=== PATIENT | female | born 1950 | race Caucasian/White ===

== ENCOUNTER 2018-08-18 02:50 | Outpatient (CLI) | payer MEDICARE, OTHER, SELFPAY ==
[2018-08-18 11:30] LABS: Anion Gap 5.7 mmol/L (3-11); BUN 18 mg/dL (7-18); CO2 30.3 mmol/L (21.0-32.0); CREATININE 1.25 mg/dL (0.55-1.02); Calcium 8.9 mg/dL (8.5-10.1); Chloride 104 mmol/L (98-107); Cholesterol 149 mg/dL (50-200); Estimated GFR 42.37 (mL/min/1.73m2); Glucose 99 mg/dL (70-100); HDL Cholesterol 46 mg/dL (40-60); LDL CHOLESTEROL 77 mg/dL (<100); Potassium 4.3 mmol/L (3.5-5.1); Sodium 140 mmol/L (136-145); TSH (W/Ref FT4) 0.04 uIU/mL (0.358-3.74); Triglyceride 152 mg/dL (30-150)
[2018-08-18 12:03] LABS: FREE T4 1.53 ng/dL (0.76-1.46)
== END 2018-08-18 03:10 ==
PROVIDERS: PCP Family Medicine; Visit Provider Family Medicine
DX: E03.9 Hypothyroidism, unspecified (principal); E66.01 Morbid (severe) obesity due to excess calories; R73.01 Impaired fasting glucose
CPT/HCPCS: 36415; 80048; 80061; 83721; 84439; 84443

== ENCOUNTER 2018-09-11 06:54 | Outpatient (CLI) | payer MEDICARE, OTHER, SELFPAY ==
--- NOTE | 2018-09-11 15:00 | DI.MAMMO_ITS ---
SYMPTOM/DIAGNOSIS: SCREENING, Z12.31 MAMMOGRAMS: Mammograms were interpreted according to the usual protocol including computer analysis with CAD system, tomosynthesis and C view imaging. Comparison is made with exams from [id number]. The breasts are composed of fatty density tissue, breast density, Category A. No suspicious masses or suspicious microcalcifications are seen. There has been no significant change. Benign calcifications are again noted bilaterally, right greater than left. IMPRESSION: Category 2, negative mammogram with benign findings. Yearly screening mammography is recommended. MQSA ASSESSMENT OF FINDINGS: Negative with benign findings. Category 2. Patient will receive a letter notifying them of these results. BI-RAD category A. The breasts are almost entirely fatty.
== END 2018-09-11 07:14 ==
PROVIDERS: PCP Family Medicine; Visit Provider Family Medicine
DX: Z12.31 Encounter for screening mammogram for malignant neoplasm of breast (principal)
CPT/HCPCS: 77063; 77067

== ENCOUNTER 2018-10-04 01:50 | Outpatient (CLI) | payer MEDICARE, OTHER, SELFPAY ==
[2018-10-04 11:00] LABS: TSH (W/Ref FT4) 0.03 uIU/mL (0.358-3.74)
[2018-10-04 11:19] LABS: FREE T4 1.63 ng/dL (0.76-1.46)
== END 2018-10-04 02:10 ==
PROVIDERS: PCP Family Medicine; Visit Provider Family Medicine
DX: E03.9 Hypothyroidism, unspecified (principal)
CPT/HCPCS: 36415; 84439; 84443

== ENCOUNTER 2018-11-14 01:43 | Outpatient (CLI) | payer MEDICARE, OTHER, SELFPAY ==
[2018-11-14 11:43] LABS: TSH (W/Ref FT4) 0.02 uIU/mL (0.36-3.74)
[2018-11-14 12:01] LABS: FREE T4 1.28 ng/dL (0.76-1.46)
== END 2018-11-14 02:03 ==
PROVIDERS: PCP Family Medicine; Visit Provider Family Medicine
DX: E03.9 Hypothyroidism, unspecified (principal)
CPT/HCPCS: 36415; 84439; 84443

== ENCOUNTER 2019-01-08 08:23 | Outpatient (CLI) | payer MEDICARE, OTHER, SELFPAY ==
[2019-01-08 12:00] LABS: TSH (W/Ref FT4) 0.24 uIU/mL (0.36-3.74)
[2019-01-08 12:21] LABS: FREE T4 1.03 ng/dL (0.76-1.46)
== END 2019-01-08 08:43 ==
PROVIDERS: PCP Family Medicine; Visit Provider Family Medicine
DX: E03.9 Hypothyroidism, unspecified (principal)
CPT/HCPCS: 36415; 84439; 84443

== ENCOUNTER 2019-03-16 10:36 | Outpatient (REF) | payer MEDICARE, OTHER, SELFPAY | END 2019-03-16 10:56 | LOC: LBN 10:36 | PROVIDERS: PCP Family Medicine; Visit Provider Family Medicine | DX: R30.0 Dysuria (principal) | CPT/HCPCS: 87077; 87086; 87186 ==

== ENCOUNTER 2020-04-30 18:00 | Outpatient (REF) | payer MEDICARE, OTHER, SELFPAY ==
[2020-04-30 12:13] LABS: HCT 41.5 % (36.0-46.0); HGB 13.6 g/dL (11.2-15.7); MCH 29.4 pg (27.0-33.0); MCHC 32.8 % (32.0-36.0); MCV 89.6 fL (80-95); MPV 10.4 fL (8.0-11.0); Platelet Count 226 10^3/uL (130-400); RBC 4.63 10^6/uL (3.93-5.22); RDW 14.1 % (11.7-14.6); RDW-SD 46.4 fL; WBC 7.61 10^3/uL (4.4-10.8)
[2020-04-30 12:37] LABS: Hemoglobin A1C 5.5 % (<5.7)
[2020-04-30 12:48] LABS: BUN 21 mg/dL (7-18); CREATININE 1.56 mg/dL (0.55-1.02); Calcium 9.1 mg/dL (8.5-10.1); Calculated LDL 132 mg/dL (<100); Chloride 103 mmol/L (98-107); Cholesterol 217 mg/dL (<200); Estimated GFR 32.62 (mL/min/1.73m2); Glucose 117 mg/dL (74-106); HDL Cholesterol 58 mg/dL (40-60); Potassium 4.1 mmol/L (3.5-5.1); Sodium 141 mmol/L (136-145); TSH (W/Ref FT4) 4.85 uIU/mL (0.36-3.74); Triglyceride 138 mg/dL (<150); Vitamin B12 1290 pg/mL (193-986)
[2020-04-30 13:21] LABS: FREE T4 1.16 ng/dL (0.76-1.46)
== END 2020-04-30 18:20 ==
LOC: LBN 18:00
PROVIDERS: PCP Family Medicine; Visit Provider Family Medicine
DX: D64.9 Anemia, unspecified (principal); R73.9 Hyperglycemia, unspecified; E03.9 Hypothyroidism, unspecified; E78.5 Hyperlipidemia, unspecified; E87.1 Hypo-osmolality and hyponatremia
CPT/HCPCS: 80048; 80061; 85027; 82607; 83036; 84439; 84443

== ENCOUNTER 2020-05-23 02:44 | Outpatient (CLI) | payer MEDICARE, OTHER, SELFPAY ==
--- NOTE | 2020-05-23 15:55 | DI.MAMMO_ITS ---
EXAM: MG MAMMO SCREENING CLINICAL HISTORY: screening.Z12.39. TECHNIQUE: Bilateral full field digital CC and MLO mammographic images were obtained with 3D tomosyn thesis and utilizing computer aided detection (CAD). COMPARISON: Prior mammograms dating back to 2010, the most recent being August 2018. FINDINGS: There are no spiculated masses nor malignant appearing microcalcification groups. There is no signif icant architectural distortion nor skin thickening-retraction. IMPRESSION: No radiographic evidence of malignancy. BI-RADS Category 1 - Negative Breast Density - Category A - Almost entirely fatty Breast density Category C or D implies that the patient has dense breast tissue. Dense breast tissue can make it harder to find cancer on a mammogram. Dense breast tissue is also associated with an incr eased risk of breast cancer. This information about the result of the mammogram report was provided to the patient to raise their awareness. Use this report when you speak with the patient about their risks for breast cancer, which includes their family history. At that time, you may recommend additional screening tests (Ultrasoun d or MRI) as these tests may add significant information. A negative radiographic report should not delay biopsy if a dominant or clinically suspicious mass is present. Up to ten percent of cancers are not identified on mammography. A negative report may reinforce clinical impression. Adenosis and dense breasts may obscure an underlying neoplasm. False positive reports average 6 to 10%. Patient will receive a letter notifying them of these results.
== END 2020-05-23 03:04 ==
PROVIDERS: PCP Family Medicine; Visit Provider Family Medicine
DX: Z12.31 Encounter for screening mammogram for malignant neoplasm of breast (principal)
CPT/HCPCS: 77063; 77067

== ENCOUNTER 2020-08-01 12:22 | Outpatient (REF) | payer MEDICARE, OTHER, SELFPAY ==
[2020-08-01 14:34] LABS: BUN 18 mg/dL (7-18); CREATININE 1.4 mg/dL (0.55-1.02); Estimated GFR 36.96 (mL/min/1.73m2)
[2020-08-01 14:38] LABS: Cholesterol 141 mg/dL (<200)
== END 2020-08-01 12:23 | disposition home or self-care (01) ==
LOC: LBN 12:22
PROVIDERS: PCP Family Medicine; Visit Provider Family Medicine
DX: E78.5 Hyperlipidemia, unspecified (principal); N18.9 Chronic kidney disease, unspecified
CPT/HCPCS: 84520; 82465; 82565

== ENCOUNTER 2021-04-28 03:24 | Outpatient (CLI) | payer MEDICARE, OTHER, SELFPAY ==
[2021-04-28 13:41] LABS: Calculated LDL 58 mg/dL (<100); Cholesterol 170 mg/dL (<200); HDL Cholesterol 56 mg/dL (40-60); TSH (W/Ref FT4) 0.25 uIU/mL (0.36-3.74); Triglyceride 281 mg/dL (<150)
[2021-04-28 14:13] LABS: FREE T4 1.23 ng/dL (0.76-1.46)
== END 2021-04-28 03:25 | disposition home or self-care (01) ==
LOC: LBO 03:25
PROVIDERS: PCP Family Medicine; Visit Provider Family Medicine
DX: E03.9 Hypothyroidism, unspecified (principal); E78.5 Hyperlipidemia, unspecified
CPT/HCPCS: 36415; 80061; 84439; 84443

== ENCOUNTER 2021-05-26 00:13 | Outpatient (CLI) | payer MEDICARE, OTHER, SELFPAY ==
--- NOTE | 2021-05-26 15:57 | DI.MAMMO_ITS ---
Exam(s) MAMMO SCREENING EXAM: MAMMO SCREENING CLINICAL HISTORY: screening,z12.39 TECHNIQUE: Bilateral full field digital CC and MLO mammographic images were obtained with 3D tomosyn thesis and utilizing computer aided detection (CAD). COMPARISON: Available for comparison. FINDINGS: Masses/Architectural Distortion: None seen. Microcalcifications: No suspicious pleomorphic-type are seen. Skin Thickening/Nipple Retraction: None. IMPRESSION: 1. No significant interval change with no specific features of malignancy noted. 2. Unless there is more urgent need, screening mammography is recommended, as per [employer] guidelines. BI-RADS Category 1 - Negative Breast Density - Category A - Almost entirely fatty Breast density category C or D implies that the patient has dense breast tissue. Dense breast tissue is very common and is not abnormal but dense breast tissue can make it harder to find cancer on a ma mmogram. Also, dense breast tissue may increase their breast cancer risk. This information about the result of the mammogram report was provided to the patient to raise their awareness. Use this report when you speak with the patient about their risks for breast cancer, which includes their family hist ory. At that time, you may recommend for more screening tests (Ultrasound or MRI) as they might be us eful based on their risk. A negative radiographic report should not delay biopsy if a dominant or clinically suspicious mass is present. Up to ten percent of cancers are not identified on mammography. A negative report may reinforce clinical impression. Adenosis and dense breasts may obscure an underlying neoplasm. False positive reports average 6 to 10%. Patient will receive a letter notifying them of these results.
== END 2021-05-26 00:33 ==
PROVIDERS: PCP Family Medicine; Visit Provider Family Medicine
DX: Z12.31 Encounter for screening mammogram for malignant neoplasm of breast (principal)
CPT/HCPCS: 77063; 77067

== ENCOUNTER 2021-12-10 16:56 | Outpatient (REF) | payer MEDICARE, OTHER, SELFPAY ==
[2021-12-10 18:28] LABS: CREATININE 1.9 mg/dL (0.55-1.02); Estimated GFR 25.91 (mL/min/1.73m2); Potassium 4.2 mmol/L (3.5-5.1)
== END 2021-12-10 16:57 | disposition home or self-care (01) ==
LOC: LBN 16:56
PROVIDERS: PCP Family Medicine; Visit Provider Family Medicine
DX: I10 Essential (primary) hypertension (principal); N18.9 Chronic kidney disease, unspecified
CPT/HCPCS: 82565; 84132

== ENCOUNTER → 2022-01-27 01:19 | Outpatient (CLI) | payer MEDICARE, OTHER, SELFPAY ==
--- NOTE | 2022-01-27 07:30 | DI.US_ITS ---
Exam(s) US RENAL EXAM: US RENAL CLINICAL HISTORY: renal insufficiency,n28.9. TECHNIQUE: Loja scale, color and spectral Doppler were used. COMPARISON: No exams were available for comparison FINDINGS: Exam is limited by patient body habitus. Renal size in cm: Right: 8.5 x 4.2 x 4.4 left: 9.1 x 3.7 x 4.6 Echogenicity: Normal Hydronephrosis: No Cyst or mass: No Nephrolithiasis: No Bladder:No focal mass or stone visible. Prevoid vol:111 cc Postvoid vol:2 cc IMPRESSION: Mild bilateral renal parenchymal atrophy. No evidence hydronephrosis. DATA REPOSITORY:
== END ==
PROVIDERS: PCP Family Medicine; Visit Provider Family Medicine
DX: N28.89 Other specified disorders of kidney and ureter (principal)
CPT/HCPCS: 76770

== ENCOUNTER 2022-04-22 17:58 | Outpatient (REF) | payer MEDICARE, OTHER, SELFPAY ==
[2022-04-22 18:50] LABS: Hemoglobin A1C 5.3 % (<5.7)
[2022-04-22 18:51] LABS: CREATININE 2.2 mg/dL (0.55-1.02); Estimated GFR 22.95 (mL/min/1.73m2)
[2022-04-22 19:08] LABS: FREE T4 1.44 ng/dL (0.76-1.46)
== END 2022-04-22 17:59 | disposition home or self-care (01) ==
LOC: LBN 17:58
PROVIDERS: PCP Family Medicine; Visit Provider Family Medicine
DX: R73.9 Hyperglycemia, unspecified (principal); E03.9 Hypothyroidism, unspecified; I10 Essential (primary) hypertension
CPT/HCPCS: 82565; 83036; 84439; 84443

== ENCOUNTER 2022-05-19 02:47 | Outpatient (CLI) | payer MEDICARE, OTHER, SELFPAY ==
[2022-05-19 12:35] LABS: Abs Immature Grans 0.05 10^3/uL (0.0-0.06); Absolute Basophil Count 0.04 10^3/uL (0.0-0.2); Absolute Eosinophil Count 0.09 10^3/uL (0.0-0.7); Absolute Lymphocyte Count 0.99 10^3/uL (1.2-3.4); Absolute Monocyte Count 0.59 10^3/uL (0.1-0.8); Basophils % 0.5; Eosinophils % 1.1; HGB 11.2 g/dL (11.2-15.7); Immature Grans % 0.6; MCH 28.3 pg (27.0-33.0); MCHC 31.1 % (32.0-36.0); MCV 91 fL (80-95); MPV 10.3 fL (8.0-11.0); Monocytes % 7.1; Neutrophils % 78.7; Platelet Count 323 10^3/uL (130-400); RBC 3.96 10^6/uL (3.93-5.22); RDW 14.2 % (11.7-14.6); RDW-SD 47.8 fL; WBC 8.26 10^3/uL (4.4-10.8)
[2022-05-19 12:45] LABS: ALT 15 U/L (14-59); AST 17 U/L (15-37); Albumin 2.8 g/dL (3.4-5.0); Alkaline Phosphatase 111 U/L (46-116); Anion Gap 8.3 mmol/L (3-11); BUN 29 mg/dL (7-18); Bilirubin, Total 0.5 mg/dL (0.2-1.0); CO2 24.7 mmol/L (21.0-32.0); CREATININE 2.2 mg/dL (0.55-1.02); Chloride 106 mmol/L (98-107); Estimated GFR 22.95 (mL/min/1.73m2); Glucose 96 mg/dL (74-106); Potassium 3.9 mmol/L (3.5-5.1); Sodium 139 mmol/L (136-145); Total Protein 6.8 g/dL (6.4-8.2)
== END 2022-05-19 02:48 | disposition home or self-care (01) ==
LOC: LOS 02:47
PROVIDERS: PCP Family Medicine; Visit Provider Family Medicine
DX: D64.9 Anemia, unspecified (principal); R10.9 Unspecified abdominal pain
CPT/HCPCS: 36415; 80053; 85025

== ENCOUNTER 2022-05-27 01:17 | Outpatient (CLI) | payer MEDICARE, OTHER, SELFPAY ==
--- NOTE | 2022-05-27 07:30 | DI.CT_ITS ---
Exam(s) CT ABDOMEN PELVIS WO EXAM: CT ABDOMEN PELVIS WO CLINICAL HISTORY: abdominal pain x 2 months;h/o endometrial ca,r10.9. TECHNIQUE: Imaging Protocol: Axial computed tomography images with coronal and sagittal reformatted images were created and reviewed. Oral: yes / COMPARISON: CT CHEST ABD PELVIS WO CONTRAST from 03/12/2013 FINDINGS: ABDOMEN: Lung Bases: Stable 2-3 millimeter nodules noted at both lung bases. Liver: Normal density. No measurable mass. Gallbladder and biliary tract: No radiodense calculus or dilation. Stomach and small bowel: Suture ma terial at stomach. No small bowel dilatation. Pancreas: Normal density, no abnormal calcifications or inflammatory process. Spleen: Normal. Kidneys: Normal size, contour and axis. No radiodense stones or obstructive uropathy. No masses seen. Adrenal glands: Mildly prominent. No focal mass seen. Lymph nodes: Within normal limits. Abdominal Aorta: Abdominal portion non-dilated. Atherosclerotic changes. PELVIS: Bladder: Nearly empty. Bowel: Mild diverticulosis descending and sigmoid. No obstruction or bowel wall thickening. Peritoneal cavity: There is a large amount of ascites seen around the liver as well as in the mesente ry extending into the the pelvis. Abnormal thickening of the mesentery inferior to the right diaphra gm. Other areas of nodular thickening seen near the lower border of the liver and right mid anterior abdominal wall. The amount of peritoneal nodule thickening is likely underestimated due to lack of IV contrast. Reproductive organs: Status post hysterectomy. Bones: Degenerative changes. Stable mild compression fractures of the superior endplates of T12 and L3. New compression of the superior endplate of L2. No lytic or blastic lesions identified. IMPRESSION: Large quantity of ascites with abnormal nodular multifocal peritoneal thickening suspicious for perit partida metastases. RADIATION DOSE DELIVERED: 1,290.82mGy.cm Total DLP DATA REPOSITORY: All CT scans at this facility are submitted to the National Radiology Data Registry (NRDR) Dose Index Registry (DIR) with the [employer] (ACR). RADIATION OPTIMIZATION: All CT scans at this facility use at least one of these dose optimization te chniques: automated exposure control; mA and/or kV adjustment per patient size (includes targeted exa ms where dose is matched to clinical indication); or iterative reconstruction.
[2022-05-27] MEDS: Barium Sulfate 2% W/V-Berry Smoothie 450 ML BTL PO (08:39)
== END 2022-05-27 01:37 ==
LOC: DI 01:17
PROVIDERS: PCP Family Medicine; Visit Provider Family Medicine
DX: R10.9 Unspecified abdominal pain (principal); R93.5 Abnormal findings on diagnostic imaging of other abdominal regions, including retroperitoneum; Z85.42 Personal history of malignant neoplasm of other parts of uterus
CPT/HCPCS: 74176

== ENCOUNTER 2022-06-08 14:22 | Emergency (ER) | payer MEDICARE, OTHER, SELFPAY ==
[2022-06-08] VITALS (38 sets, daily range): BP systolic 95–134; BP diastolic 32–67; PULSE 73–97; RESP 14–20; TEMP 35.8–37.1; O2SAT 98–100
--- NOTE | 2022-06-08 14:15 | RT.EKG_ITS ---
APPROVED REPORT Exam: Resting ECG Reason for Exam: weak Patient Location: E HR:95 bpm ECG Measurements Heart Rate 95 AXIS WY 126 P 40 QRSd 85 QRS 36 QT 351 T 45 QTc 442 Conclusion Sinus rhythm...normal P axis, V-rate 60- 99 I have reviewed and interpreted ECG and agree with software generated interpretation. Narrow complex normal sinus rhythm at a rate of 95. Normal axis. Intervals within normal limits. N o ST segment abnormalities. T wave flattening in aVL. No prior for comparison. No acute injury juliette beckett.
--- NOTE | 2022-06-08 14:43 | W.ED.GENAD ---
Discharge Plan Discharge Details Chief Complaint: GenMedical Primary Care Provider: Prince Lowe ED Provider: Chris Pacheco Home Meds and New Rx's Prescriptions: No Action gabapentin 600 mg tablet 600 mg PO BID PRN (Reason: peripheral neuropathy) Qty: 180 3RF Hold Instructions: backordered Rx Instructions: 1 TAB BID atenolol 25 mg tablet 25 mg PO DAILY Qty: 90 3RF levothyroxine 200 mcg tablet 200 mcg PO DAILY Qty: 90 3RF Rx Instructions: taking 5 days /week cranberry extract 200 mg capsule 200 mg PO DAILY Rx Instructions: administer with a meal gabapentin 300 mg capsule 600 mg PO BID PRN oxybutynin chloride 10 mg tablet extended release 24hr 20 mg PO DAILY Qty: 90 3RF Hold Instructions: Home Medication placed on hold at Doctor's office Rx Instructions: dose increase 04/21/21 atorvastatin 40 mg tablet 40 mg PO HS Qty: 90 4RF Rx Instructions: 1 TAB HS lisinopril-hydrochlorothiazide 10-12.5 mg tablet 1 tab PO DAILY Qty: 90 3RF loperamide 2 mg capsule 2 mg PO Q6H PRN (Reason: loose stool) Qty: 30 5RF Myrbetriq 25 mg tablet extended release 24 hr 25 mg PO DAILY Qty: 90 3RF tramadol 50 mg tablet 25 - 50 mg PO Q8H PRN (Reason: pain) Qty: 30 0RF Medical Decision Making This is a 72-year-old female with a past medical history of hypertension, hyperlipidemia, neuropathy, thyroid disease, obesity, history of gastric bypass, endometrial cancer, presenting for several months of decreased appetite, weight loss, generalized weakness. 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 Clinically she appears stable, no acute distress, abdomen is nontender. Plan to obtain IV access and obtain routine screening laboratory values. Patient reports that given her generalized weakness and she lives at home alone, she believes that she requires admission. This documentation was generated using [employer] [place] system, please disregard any oddities of phrase or misspellings. Medical Records Medical records reviewed: Yes I reviewed the patient's medical records. ECG Data Attestation: I personally reviewed and interpreted this ECG (s) as follows: Interpretation: Sinus rhythm, ventricular of 95, no STEMI. HPI General Mode of arrival: ambulatory. Date/Time Provider Initiated Documentation: 06/08/22 14:30. Information obtained by: patient. HPI Narrative: This is a 72-year-old female with a past medical history of hypertension, hyperlipidemia, gastric bypass, thyroid disease, chronic diarrhea, uterine cancer 10 years ago, presenting now for several months of lack of appetite, weight loss, generalized weakness. Patient was seen by her PCP earlier this month and had an outpatient CT which revealed a large quantity of ascites with abdominal nodular multifocal peritoneal thickening suspicious for peritoneal metastasis. Patient states that she is in the process of being referred to [facility] for biopsy and more definitive diagnosis. Patient reports that because of her generalized weakness and living at home alone she is not safe to be discharged home and is requesting discharge. She denies fever, chest pain, shortness of breath, abdominal pain, vomiting, nausea, change in bowel or bladder function, skin rash. Related Data Home Medications Medication Instructions Recorded Confirmed gabapentin 600 mg tablet 600 mg PO BID PRN peripheral 01/09/19 06/08/22 neuropathy #180 tab-caps oxybutynin chloride 10 mg 20 mg PO DAILY #90 tabs 11/22/21 06/08/22 tablet,extended release 24 hr atorvastatin 40 mg tablet 40 mg PO HS #90 tab-caps 12/16/21 06/08/22 lisinopril 10 1 tab PO DAILY #90 tabs 02/10/22 06/08/22 mg-hydrochlorothiazide 12.5 mg tablet atenolol 25 mg tablet 25 mg PO DAILY #90 tabs 03/09/22 06/08/22 levothyroxine 200 mcg tablet 200 mcg PO DAILY #90 tab-caps 03/09/22 06/08/22 loperamide 2 mg capsule 2 mg PO Q6H PRN loose stool #30 03/13/22 06/08/22 caps cranberry extract 200 mg capsule 200 mg PO DAILY 03/17/22 06/08/22 gabapentin 300 mg capsule 600 mg PO BID PRN 05/13/22 06/08/22 mirabegron 25 mg tablet,extended 25 mg PO DAILY #90 tabs 05/24/22 06/08/22 release 24 hr (Myrbetriq) tramadol 50 mg tablet 25 - 50 mg PO Q8H PRN pain #30 tabs 06/08/22 06/08/22 Previous Rx's Medication Instructions Recorded gabapentin 600 mg tablet 600 mg PO BID PRN peripheral 01/09/19 neuropathy #180 tab-caps oxybutynin chloride 10 mg 20 mg PO DAILY #90 tabs 11/22/21 tablet,extended release 24 hr atorvastatin 40 mg tablet 40 mg PO HS #90 tab-caps 12/16/21 lisinopril 10 1 tab PO DAILY #90 tabs 02/10/22 mg-hydrochlorothiazide 12.5 mg tablet atenolol 25 mg tablet 25 mg PO DAILY #90 tabs 03/09/22 levothyroxine 200 mcg tablet 200 mcg PO DAILY #90 tab-caps 03/09/22 loperamide 2 mg capsule 2 mg PO Q6H PRN loose stool #30 03/13/22 caps mirabegron 25 mg tablet,extended 25 mg PO DAILY #90 tabs 05/24/22 release 24 hr (Myrbetriq) tramadol 50 mg tablet 25 - 50 mg PO Q8H PRN pain #30 tabs 06/08/22 Allergies Allergy/AdvReac Type Severity Reaction Status Date / Time bupropion HCl AdvReac Intermediate tremors Verified 06/08/22 14:30 [From Wellbutrin] General Stated Complaint: GenMedical LARRY: 3 Review of Systems Constitutional Constitutional: Reports fatigue, Denies fever(s) and Reports weakness Cardiovascular Cardiovascular: Denies chest pain and Denies dyspnea Respiratory Respiratory: Denies cough and Denies dyspnea Gastrointestinal Gastrointestinal: Denies abdominal pain, Denies melena, Denies hematochezia, Reports loose stools (Chronic), Denies nausea and Denies vomiting Comments: Abdominal fullness Genitourinary Genitourinary: Denies dysuria Musculoskeletal Musculoskeletal: Denies back pain Integumentary/Breasts Skin/Breast: Denies rash Neurologic Neurologic: Reports weakness Endocrine Endocrine: Reports fatigue Hematologic/Lymphatic Hematologic/Lymphatic: Denies easy bleeding and Denies easy bruising PFSH All Active Problems Peritoneal metastases (Acute) Abdominal pain (Acute) Medical History Acne Carpal tunnel syndrome Chronic diarrhea Depressive disorder Diabetes mellitus (05/31/14) Edema Gastroesophageal reflux disease with esophagitis Herpes zoster (02/29/08) Hyperlipidemia (10/19/12) Hypertension better w/ current meds Hypothyroidism (10/19/12) Impaired fasting glucose (07/14/15) Malignant neoplasm of uterus (07/02/11) endometrial cancer (focal grade 3) noninvasive TLH/BSO at [facility] 06/24/11 Morbid obesity Obstructive sleep apnea syndrome [facility] sleep lab 2003 (pt stopped CPAP in 2010, re-start 2014 No Co Hosp sleep lab) Peripheral neuropathy leg numbness and unstable gait due th chemo Renal insufficiency [facility] Nephrology eval 2006 Renal insufficiency Sensorineural hearing loss of both ears Vertigo (02/29/08) Vitamin B 12 deficiency (05/31/14) Vitamin D deficiency (07/14/15) Surgical History Colonoscopy - MAC (05/03/12) [facility] Extraction of cataract 10/10/17 (R) eye; DR. ECKERT 10/31/17 (L) eye; Dr. Eckert GASTRIC STAPLING w/ esoph rupture and abcess History of gastric stapling History of hysterectomy for malignancy 2011 at [facility] History of tonsillectomy and adenoidectomy Open Carpal Tunnel release B/L Status post carpal tunnel release Family History Mother , RENAL FAILURE at age 70. Essential hypertension Diabetes Heart disease Hyperlipidemia Father , KIDNEY FAILURE at age 60. Essential hypertension Heart disease Hyperlipidemia Maternal Grandfather No problems noted. Paternal Grandfather No problems noted. Maternal Grandmother Diabetes Paternal Grandmother No problems noted. Social History Smoking/Tobacco Use Status: Former Tobacco Use Quit Date: 04/25/84 Smoking risk assessment performed?: Yes Alcohol Intake: current Alcohol Intake frequency: a few times a week Alcohol type: hard liquor Drug use: Never Substance use type: does not use Caregiver/Support person: No Household members: none Housing: house Communication Needs: Hard of Hearing and Corrective Lenses Do you need help understanding health information?: Never Pets and animals: Yes Pets and animals: dog(s) Sexually active: No Do you think of yourself as: straight/heterosexual Current gender identity: female What is your relationship status?: never How often do you talk on the phone with friends or family?: once per week How often do you get together with friends or relatives?: decline to answer Do you belong to any clubs or organized social groups?: no Panel score (0-1 are the most socially isolated patients): 0 What type of physical activity do you participate in: none Kia/Mormonism: Congregational Seatbelt use: always Helmet use: No Drive intox or ride w/intox regional 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: No Do you feel safe at home: Yes Do you feel safe in your relationship?: Yes Victim of physical abuse: No Victim of emotional abuse: No Victim of sexual abuse: No Would you like helpful sources: No Female Reproductive History Menstrual Age of Menarche: 10 control method: none Menopause type: natural History History 0 Para Hx # Term Pregnancies Multiple births Hx # Pregnancies Ectopic pregnancies AB induced Hx Number of Living Children AB spontaneous Exam Const General: cooperative, healthy appearing, comfortable and no acute distress Orientation: alert, awake and oriented x3 HENMT Head: normal to inspection, normocephalic and atraumatic Eyes Conjunctivae: conjunctivae normal Neck Neck: normal visual inspection, full ROM, no meningeal signs, trachea midline and supple Resp Effort & Inspection: normal respiratory effort and able to speak in complete sentences Auscultation: clear to auscultation bilaterally Cardio Rate: regular rate Rhythm: regular rhythm GI Inspection: obesity Palpation: soft, not firm, no guarding and nontender Auscultation: normal bowel sounds Back/Spine/Pelvis Back: no CVA tenderness and No back tenderness Skin General skin exam: no rashes or lesions noted Neuro General: patient alert, patient awake and moves all extremities Cognition: normal cognition Speech: speech normal Motor: muscle tone normal throughout Sensory Exam: no sensory deficits noted Extrem General: normal to inspection, full ROM and capillary refill normal Psych Appearance: grossly normal Mental Status: mental status grossly normal Course Vital Signs Vital signs: Vital Signs Temperature 35.8 C L 06/08/22 14:26 Pulse 97 H 06/08/22 14:26 Blood Pressure 109/67 06/08/22 14:26 Pulse Oximetry 100 06/08/22 14:26 Temperature 35.8 C L 02/14/23 14:26 Temperature Source Tympanic 06/08/22 14:26 Pulse 97 H 06/08/22 14:26 Respiratory Effort Normal, Non-Labored 06/08/22 14:31 Blood Pressure 109/67 06/08/22 14:26 Blood Pressure Position Sitting 06/08/22 14:26 Pulse Oximetry 100 06/08/22 14:26 Oxygen Delivery Method Room Air 06/08/22 14:26 Oxygen Flow Rate 0 06/08/22 14:26 PAWSS Have you Been Recently Intoxicated or Drunk Within the Last 30 days?: No Have you Ever Experienced Previous Episodes of Alcohol Withdrawal?: No Have you ever Experienced Withdrawal Seizures?: No Have you ever Experienced Delirium Tremens(DT)s?: No Have you ever undergone Alcohol Rehabilitation Treatment (i.e, inpt ot outpatient treatment programs)?: No Have you ever Experienced Blackouts?: No Have you ever Combined Alcohol with other Downers within the last 90 days?: No Have you ever Combined Alcohol with any other Substance of Abuse during the last 90 days?: No Positive Blood Alcohol level on Presentation? [PCS.BAL]: No Evidence of Increased Autonomic Activity (i.e. HR>120, tremor, sweating, agitation, nausea)?: No Result: 0
[2022-06-08 15:57] LABS: Abs Immature Grans 0.09 10^3/uL (0.0-0.06); Absolute Basophil Count 0.03 10^3/uL (0.0-0.2); Absolute Eosinophil Count 0.02 10^3/uL (0.0-0.7); Absolute Lymphocyte Count 0.66 10^3/uL (1.2-3.4); Absolute Monocyte Count 0.54 10^3/uL (0.1-0.8); Absolute Neutrophil Count 8.82 10^3/uL (1.2-6.7); Basophils % 0.3; Eosinophils % 0.2; HCT 39.6 % (36.0-46.0); HGB 12.7 g/dL (11.2-15.7); Immature Grans % 0.9; Lymphocytes % 6.5; MCHC 32.1 % (32.0-36.0); MCV 87 fL (80-95); MPV 10.3 fL (8.0-11.0); Monocytes % 5.3; Neutrophils % 86.8; Platelet Count 397 10^3/uL (130-400); RBC 4.54 10^6/uL (3.93-5.22); RDW 14.2 % (11.7-14.6); RDW-SD 45.1 fL; WBC 10.16 10^3/uL (4.4-10.8)
[2022-06-08 16:10] LABS: Lactate 1.8 mmol/L (0.6-1.4)
[2022-06-08 16:16] LABS: ALT 15 U/L (14-59); AST 17 U/L (15-37); Albumin 3.1 g/dL (3.4-5.0); Alkaline Phosphatase 128 U/L (46-116); BUN 37 mg/dL (7-18); Bilirubin, Total 0.7 mg/dL (0.2-1.0); CREATININE 2.5 mg/dL (0.55-1.02); Calcium 9.7 mg/dL (8.5-10.1); Chloride 98 mmol/L (98-107); Estimated GFR 19.69 (mL/min/1.73m2); Glucose 113 mg/dL (74-106); Lipase 40 U/L (16-77); Potassium 4.2 mmol/L (3.5-5.1); Sodium 136 mmol/L (136-145); Total Protein 7.3 g/dL (6.4-8.2)
[2022-06-08 16:22] LABS: Troponin I < 50 ng/L (<or=60)
[2022-06-08 16:27] LABS: TSH (W/Ref FT4) 18.35 uIU/mL (0.36-3.74)
[2022-06-08 18:15] LABS: FREE T4 1.09 ng/dL (0.76-1.46)
--- NOTE | 2022-06-08 18:20 | ED.GENADUL_ITS ---
Discharge Plan Discharge Details Chief Complaint: GenMedical Primary Care Provider: Prince Lowe ED Provider: Viry Chicas Home Meds and New Rx's Prescriptions: No Action gabapentin 600 mg tablet 600 mg PO BID PRN (Reason: peripheral neuropathy) Qty: 180 3RF Hold Instructions: backordered Rx Instructions: 1 TAB BID atenolol 25 mg tablet 25 mg PO DAILY Qty: 90 3RF levothyroxine 200 mcg tablet 200 mcg PO DAILY Qty: 90 3RF Rx Instructions: taking 5 days /week cranberry extract 200 mg capsule 200 mg PO DAILY Rx Instructions: administer with a meal gabapentin 300 mg capsule 600 mg PO BID PRN oxybutynin chloride 10 mg tablet extended release 24hr 20 mg PO DAILY Qty: 90 3RF Hold Instructions: Home Medication placed on hold at Doctor's office Rx Instructions: dose increase 04/21/21 atorvastatin 40 mg tablet 40 mg PO HS Qty: 90 4RF Rx Instructions: 1 TAB HS lisinopril-hydrochlorothiazide 10-12.5 mg tablet 1 tab PO DAILY Qty: 90 3RF loperamide 2 mg capsule 2 mg PO Q6H PRN (Reason: loose stool) Qty: 30 5RF Myrbetriq 25 mg tablet extended release 24 hr 25 mg PO DAILY Qty: 90 3RF tramadol 50 mg tablet 25 - 50 mg PO Q8H PRN (Reason: pain) Qty: 30 0RF Medical Decision Making Care is accepted in transition from [facility] at 1600 for this patient presenting with generalized weakness Patient is pending labs and reassessment She is a gap of 17 and a creatinine of 2.5, increased from 2.0 BUN of 37, suspect her symptoms are related to dehydration Of note, her thyroid level is also 18 and she is not been taking her Synthroid Case is discussed with Dr. Chandra, surgery, will refer for surgery for paracentesis for further cytology evaluation We will also refer back to PCP and placed a referral to [facility] oncology for reassessment In the interim we have discussed boost and Ensure supplementation, patient has received 2 L of normal saline, she is drinking ayana aileen, she has had two 8 ounce glasses, a popsicle, and saltine crackers in the emergency room and not had any follow-up vomiting and is feeling improvement HPI General Mode of arrival: ambulatory . Date/Time Provider Initiated Documentation: 06/08/22 14:30 . Information obtained by: patient . HPI Narrative: This 72-year-old female with past medical history of endometrial cancer, peripheral neuropathy, cholecystectomy, hysterectomy, hypertension and hypothyroidism presents with reports of generalized weakness and approximately 30 pound weight loss in the past 2 months. She states that she has been progressively more weak in the past 2 weeks. She states she is able to drink but has no interest in food and therefore she has not been eating much. She states she is having trouble getting around secondary to weakness. She denies any localized symptoms. She denies any fever or chills. She denies any falls or injuries. She denies any vomiting or diarrhea. She was told that she has ascites and concern for metastases of cancer, she has yet to have scheduled appointment for further investigation at this time which is what concerns her. She denies any new pain or swelling to her abdomen. She denies any shortness of breath or chest pain. Related Data Home Medications Medication Instructions Recorded Confirmed gabapentin 600 mg tablet 600 mg PO BID PRN peripheral 01/09/19 06/08/22 neuropathy #180 tab-caps oxybutynin chloride 10 mg 20 mg PO DAILY #90 tabs 11/22/21 06/08/22 tablet,extended release 24 hr atorvastatin 40 mg tablet 40 mg PO HS #90 tab-caps 12/16/21 06/08/22 lisinopril 10 1 tab PO DAILY #90 tabs 02/10/22 06/08/22 mg-hydrochlorothiazide 12.5 mg tablet atenolol 25 mg tablet 25 mg PO DAILY #90 tabs 03/09/22 06/08/22 levothyroxine 200 mcg tablet 200 mcg PO DAILY #90 tab-caps 03/09/22 06/08/22 loperamide 2 mg capsule 2 mg PO Q6H PRN loose stool #30 03/13/22 06/08/22 caps cranberry extract 200 mg capsule 200 mg PO DAILY 03/17/22 06/08/22 gabapentin 300 mg capsule 600 mg PO BID PRN 05/13/22 06/08/22 mirabegron 25 mg tablet,extended 25 mg PO DAILY #90 tabs 05/24/22 06/08/22 release 24 hr (Myrbetriq) tramadol 50 mg tablet 25 - 50 mg PO Q8H PRN pain #30 tabs 06/08/22 06/08/22 Previous Rx's Medication Instructions Recorded gabapentin 600 mg tablet 600 mg PO BID PRN peripheral 01/09/19 neuropathy #180 tab-caps oxybutynin chloride 10 mg 20 mg PO DAILY #90 tabs 11/22/21 tablet,extended release 24 hr atorvastatin 40 mg tablet 40 mg PO HS #90 tab-caps 12/16/21 lisinopril 10 1 tab PO DAILY #90 tabs 02/10/22 mg-hydrochlorothiazide 12.5 mg tablet atenolol 25 mg tablet 25 mg PO DAILY #90 tabs 03/09/22 levothyroxine 200 mcg tablet 200 mcg PO DAILY #90 tab-caps 03/09/22 loperamide 2 mg capsule 2 mg PO Q6H PRN loose stool #30 03/13/22 caps mirabegron 25 mg tablet,extended 25 mg PO DAILY #90 tabs 05/24/22 release 24 hr (Myrbetriq) tramadol 50 mg tablet 25 - 50 mg PO Q8H PRN pain #30 tabs 06/08/22 Allergies Allergy/AdvReac Type Severity Reaction Status Date / Time bupropion HCl AdvReac Intermediate tremors Verified 06/08/22 14:30 [From Wellbutrin] General Stated Complaint: GenMedical LARRY: 3 PFSH All Active Problems Peritoneal metastases (Acute) Abdominal pain (Acute) Medical History Acne Carpal tunnel syndrome Chronic diarrhea Depressive disorder Diabetes mellitus (05/31/14) Edema Gastroesophageal reflux disease with esophagitis Herpes zoster (02/29/08) Hyperlipidemia (10/19/12) Hypertension better w/ current meds Hypothyroidism (10/19/12) Impaired fasting glucose (07/14/15) Malignant neoplasm of uterus (07/02/11) endometrial cancer (focal grade 3) noninvasive TLH/BSO at [facility] [place] 06/24/11 Morbid obesity Obstructive sleep apnea syndrome [facility] sleep lab 2003 (pt stopped CPAP in 2010, re-start 2014 No Co Hosp sleep lab) Peripheral neuropathy leg numbness and unstable gait due th chemo Renal insufficiency [facility] Nephrology eval 2006 Renal insufficiency Sensorineural hearing loss of both ears Vertigo (02/29/08) Vitamin B 12 deficiency (05/31/14) Vitamin D deficiency (07/14/15) Surgical History Colonoscopy - MAC (05/03/12) [facility] Extraction of cataract 10/10/17 (R) eye; DR. ECKERT 10/31/17 (L) eye; Dr. Eckert GASTRIC STAPLING w/ esoph rupture and abcess History of gastric stapling History of hysterectomy for malignancy 2011 at [facility] History of tonsillectomy and adenoidectomy Open Carpal Tunnel release B/L Status post carpal tunnel release Family History Mother , RENAL FAILURE at age 70. Essential hypertension Diabetes Heart disease Hyperlipidemia Father , KIDNEY FAILURE at age 60. Essential hypertension Heart disease Hyperlipidemia Maternal Grandfather No problems noted. Paternal Grandfather No problems noted. Maternal Grandmother Diabetes Paternal Grandmother No problems noted. Social History Smoking/Tobacco Use Status: Former Tobacco Use Quit Date: 04/25/84 Smoking risk assessment performed?: Yes Alcohol Intake: current Alcohol Intake frequency: a few times a week Alcohol type: hard liquor Drug use: Never Substance use type: does not use Caregiver/Support person: No Household members: none Housing: house Communication Needs: Hard of Hearing and Corrective Lenses Do you need help understanding health information?: Never Pets and animals: Yes Pets and animals: dog(s) Sexually active: No Do you think of yourself as: straight/heterosexual Current gender identity: female What is your relationship status?: never How often do you talk on the phone with friends or family?: once per week How often do you get together with friends or relatives?: decline to answer Do you belong to any clubs or organized social groups?: no Panel score (0-1 are the most socially isolated patients): 0 What type of physical activity do you participate in: none Kia/Tenriism: Catholic Seatbelt use: always Helmet use: No Drive intox or ride w/intox haul truck driver: No Do you feel safe at home: Yes Do you feel safe in your relationship?: Yes Victim of physical abuse: No Victim of emotional abuse: No Victim of sexual abuse: No Would you like helpful sources: No Female Reproductive History Menstrual Age of Menarche: 10 control method: none Menopause type: natural History History 0 Para Hx # Term Pregnancies Multiple births Hx # Pregnancies Ectopic pregnancies AB induced Hx Number of Living Children AB spontaneous Exam Const General: cooperative and no acute distress HENMT Head: normal to inspection Mouth: oral mucosae normal Eyes Sclera: sclerae normal Resp Effort & Inspection: normal respiratory effort Cardio Rate: regular rate Rhythm: regular rhythm GI Inspection: normal to inspection Other: Mild diffuse tenderness without rebound or guarding Skin General skin exam: no rashes or lesions noted Neuro General: patient alert and patient oriented x3 Cranial Nerves: CN's II-XI intact bilaterally Course Vital Signs Vital signs: Vital Signs Temperature 35.8 C L 06/08/22 14:26 Pulse 97 H 06/08/22 14:26 Blood Pressure 109/67 06/08/22 14:26 Pulse Oximetry 100 06/08/22 14:26 Temperature 35.8 C L 06/08/22 14:26 Temperature Source Tympanic 06/08/22 14:26 Pulse 92 H 06/08/22 16:43 Respiratory Rate 14 06/08/22 16:43 Respiratory Effort Normal, Non-Labored 06/08/22 15:17 Respiratory Depth Normal 06/08/22 15:17 Respiratory Pattern Normal 06/08/22 15:17 Blood Pressure 99/60 L 06/08/22 16:43 Blood Pressure Position Sitting 06/08/22 14:26 Pulse Oximetry 100 06/08/22 16:43 Oxygen Delivery Method Room Air 06/08/22 16:43 Oxygen Flow Rate 0 06/08/22 16:43 Lab/Test Results Lab/Test Results: Laboratory Tests Range/Units 06/08/22 06/08/22 06/08/22 15:09 15:09 15:09 WBC (4.4-10.8) 10^3/uL 10.16 RBC (3.93-5.22) 10^6/uL 4.54 Hgb (11.2-15.7) g/dL 12.7 Hct (36.0-46.0) % 39.6 MCV (80-95) fL 87 MCH (27.0-33.0) pg 28.0 MCHC (32.0-36.0) % 32.1 RDW (11.7-14.6) % 14.2 Plt Count (130-400) 10^3/uL 397 MPV (8.0-11.0) fL 10.3 Immature Gran % 0.9 Neutrophils % 86.8 Lymphocytes % 6.5 Monocytes % 5.3 Eosinophils % 0.2 Basophils % 0.3 Nucleated RBC % (0.0-0.3) % 0.0 Absolute Neutrophils (1.2-6.7) 10^3/uL 8.82 H Absolute Lymphocytes (1.2-3.4) 10^3/uL 0.66 L Absolute Monocytes (0.1-0.8) 10^3/uL 0.54 Absolute Eosinophils (0.0-0.7) 10^3/uL 0.02 Absolute Basophils (0.0-0.2) 10^3/uL 0.03 VBG Lactate (0.6-1.4) mmol/L Sodium (136-145) mmol/L 136 Potassium (3.5-5.1) mmol/L 4.2 Chloride (98-107) mmol/L 98 Carbon Dioxide (21.0-32.0) mmol/L 21.0 Anion Gap (3-11) mmol/L 17.0 H BUN (7-18) mg/dL 37 H Creatinine (0.55-1.02) mg/dL 2.5 H Est GFR (CKD-EPI 2020) (mL/min/1.73m2) 19.69 Glucose (74-106) mg/dL 113 H Calcium (8.5-10.1) mg/dL 9.7 Total Bilirubin (0.2-1.0) mg/dL 0.7 AST (15-37) U/L 17 ALT (14-59) U/L 15 Alkaline Phosphatase (46-116) U/L 128 H Troponin I (<or=60) ng/L Total Protein (6.4-8.2) g/dL 7.3 Albumin (3.4-5.0) g/dL 3.1 L Lipase (16-77) U/L 40 TSH (0.36-3.74) uIU/mL 18.35 H Free T4 (0.76-1.46) ng/dL 1.09 Range/Units 06/08/22 06/08/22 15:09 15:58 WBC (4.4-10.8) 10^3/uL RBC (3.93-5.22) 10^6/uL Hgb (11.2-15.7) g/dL Hct (36.0-46.0) % MCV (80-95) fL MCH (27.0-33.0) pg MCHC (32.0-36.0) % RDW (11.7-14.6) % Plt Count (130-400) 10^3/uL MPV (8.0-11.0) fL Immature Gran % Neutrophils % Lymphocytes % Monocytes % Eosinophils % Basophils % Nucleated RBC % (0.0-0.3) % Absolute Neutrophils (1.2-6.7) 10^3/uL Absolute Lymphocytes (1.2-3.4) 10^3/uL Absolute Monocytes (0.1-0.8) 10^3/uL Absolute Eosinophils (0.0-0.7) 10^3/uL Absolute Basophils (0.0-0.2) 10^3/uL VBG Lactate (0.6-1.4) mmol/L 1.8 H Sodium (136-145) mmol/L Potassium (3.5-5.1) mmol/L Chloride (98-107) mmol/L Carbon Dioxide (21.0-32.0) mmol/L Anion Gap (3-11) mmol/L BUN (7-18) mg/dL Creatinine (0.55-1.02) mg/dL Est GFR (CKD-EPI 2020) (mL/min/1.73m2) Glucose (74-106) mg/dL Calcium (8.5-10.1) mg/dL Total Bilirubin (0.2-1.0) mg/dL AST (15-37) U/L ALT (14-59) U/L Alkaline Phosphatase (46-116) U/L Troponin I (<or=60) ng/L < 50 Total Protein (6.4-8.2) g/dL Albumin (3.4-5.0) g/dL Lipase (16-77) U/L TSH (0.36-3.74) uIU/mL Free T4 (0.76-1.46) ng/dL Sign Out Sign Out Data: Sign Out Comment: 72-year-old female presenting to the ER requesting admission for generalized weakness, decreased appetite, weight loss over several months, recent outpatient CT reveals peritoneal thickening concern for metastatic disease as well as ascites. Examination not consistent with SBP. Given recent outpatient CT, question if repeat CT is of any value today. Will obtain routine screening laboratory values and reassess. Last updated by Chris Pacheco PA at 06/08/22 15:39 PAWSS Have you Been Recently Intoxicated or Drunk Within the Last 30 days?: No Have you Ever Experienced Previous Episodes of Alcohol Withdrawal?: No Have you ever Experienced Withdrawal Seizures?: No Have you ever Experienced Delirium Tremens(DT)s?: No Have you ever undergone Alcohol Rehabilitation Treatment (i.e, inpt ot outpatient treatment programs)?: No Have you ever Experienced Blackouts?: No Have you ever Combined Alcohol with other Downers within the last 90 days?: No Have you ever Combined Alcohol with any other Substance of Abuse during the last 90 days?: No Positive Blood Alcohol level on Presentation? [PCS.BAL]: No Evidence of Increased Autonomic Activity (i.e. HR>120, tremor, sweating, agitation, nausea)?: No Result: 0
[2022-06-08] MEDS: Normal Saline 1,000 ML 1000 ML IV ×2 (18:25→20:20)
[2022-06-08] MEDS: traMADol 50 MG TAB PO (19:35)
[2022-06-08 21:45] LABS: Bilirubin Moderate (Negative); Blood Trace-intact (Negative); Clarity Clear (Clear); Glucose Negative (Negative); Ketones 15 mg/dL (Negative); Leukocyte Esterase Negative (Negative); Nitrite Negative (Negative); Urobilinogen 0.2 EU/dL (Up TO 0.2); pH 5.5 (5-8)
[2022-06-08 22:08] LABS: Bacteria Moderate HPF (Negative); C & S Indicated? Yes; Casts 3-5 Hyaline LPF (Negative); Crystals Negative HPF (Negative); Epithelial Cells Rare HPF (Negative); Mucus Negative (Negative); WBC 0-2 HPF (0-5)
--- NOTE | 2022-06-08 22:10 | NUR.NOTE ---
Addendum entered by Vincent Hylton 06/08/22 22:10: Pt was able to get up ad out of bed and ambulate to the bathroom utilizing a walker, ED staff assisted the pt by standing by only, pt was able to do all work on her own, YURI Original Note: Nursing Note:
== END 2022-06-08 22:39 | disposition home or self-care (01) ==
PROVIDERS: Physician Assistant; Emergency Provider Physician Assistant; PCP Family Medicine
DX: R10.9 Unspecified abdominal pain (principal); C78.6 Secondary malignant neoplasm of retroperitoneum and peritoneum; E78.5 Hyperlipidemia, unspecified; E86.0 Dehydration; E11.42 Type 2 diabetes mellitus with diabetic polyneuropathy; Z85.42 Personal history of malignant neoplasm of other parts of uterus; E03.9 Hypothyroidism, unspecified; R53.1 Weakness
CPT/HCPCS: 36415; 51701; 80053; 83690; 93005; 96360; 96361; 99284; 81003; 81015; 83605; 84439; 84443; 84484; 85025; 87086; 93010

== ENCOUNTER → 2022-06-10 14:15 | Outpatient (BNVA) | payer MEDICARE, OTHER, SELFPAY | PROVIDERS: PCP Family Medicine; Referring Provider Family Medicine; Visit Provider Surgery | DX: R63.4 Abnormal weight loss (principal); R10.9 Unspecified abdominal pain; C55 Malignant neoplasm of uterus, part unspecified; C78.6 Secondary malignant neoplasm of retroperitoneum and peritoneum; E11.9 Type 2 diabetes mellitus without complications; R74.8 Abnormal levels of other serum enzymes; I12.9 Hypertensive chronic kidney disease with stage 1 through stage 4 chronic kidney disease, or unspecified chronic kidney disease; N18.4 Chronic kidney disease, stage 4 (severe); E88.09 Other disorders of plasma-protein metabolism, not elsewhere classified; E44.1 Mild protein-calorie malnutrition | CPT/HCPCS: 99214; 99243 ==

== ENCOUNTER 2022-06-11 10:33 | Day surgery (SDC) | payer MEDICARE, OTHER, SELFPAY ==
[2022-06-11 11:11] VITALS: BP 110/62; PULSE 71; RESP 16; TEMP 36.4; O2SAT 100
[2022-06-11 11:40] LABS: INR 1.1 (0.9-1.1); Prothrombin Time 10.9 sec (9.3-11.0)
[2022-06-11 11:55] LABS: Anion Gap 10.2 mmol/L (3-11); BUN 20 mg/dL (7-18); CO2 24.8 mmol/L (21.0-32.0); Calcium 9.1 mg/dL (8.5-10.1); Chloride 101 mmol/L (98-107); Estimated GFR 25.73 (mL/min/1.73m2); Glucose 104 mg/dL (74-106); Potassium 4.1 mmol/L (3.5-5.1); Sodium 136 mmol/L (136-145); TSH 12.13 uIU/mL (0.36-3.74)
--- NOTE | 2022-06-11 12:48 | PAPNONF_PTH ---
PATIENT: Erica Welch LOC: [facility] U#:[id number] AGE/SX: 72/F ROOM: RE06/11/[address]: Blanca Jim : 1950 BED: DIS: 06/11/2022 SPEC #: [id number] RECD: 06/11/22 13:52 STATUS: BRODY REQ #: [id number] NGOC: 06/11/22 12:[address]: Blanca Jim DEPT: [facility] Cytology RECD BY: Viry Subramanian ENTERED: 06/11/22 13:53 SP TYPE: RUSSELL GALINDO DR: Prince Lowe MD Tissues: 1 - BODY FLUID CYTO(NOT S/U/N/EM)[facility] Procedures: BODY FLUID CYTO(NOT SPU/UR/NIP/ENDOM)[facility] IMMUNOPEROXIDASE STAIN CYTOLOGY CELL BLOCK Comments: [id number] (TOTAL VOLUME = 65 ml) (REFRIGERATED)
[2022-06-11 13:04] VITALS: BP 104/56; PULSE 67; RESP 18; TEMP 36.5; O2SAT 100
--- NOTE | 2022-06-11 13:07 | PDOC.DSDIS_ITS ---
Date of service: 06/11/22 Time of Service: 13:07 Discharge Plan Disposition Patient Disposition: Home Condition: Improving Discharge Details Reason For Visit: fluid removal from the abdomen Attending Provider: Blanca Jim Primary Care Provider: Prince Lowe Home Meds and New Rx's Prescriptions: New megestrol 400 mg/10 mL (40 mg/mL) Suspension 400 mg PO DAILY 30 Days Qty: 480 6RF Continued atenolol 25 mg tablet 25 mg PO DAILY Qty: 90 3RF levothyroxine 200 mcg tablet 200 mcg PO DAILY Qty: 90 3RF Rx Instructions: taking 5 days /week ondansetron HCl 4 mg tablet 4 mg PO Q6H PRN (Reason: nausea and vomiting) Qty: 20 0RF gabapentin 300 mg capsule 600 mg PO BID PRN lorazepam [Ativan] 0.5 mg tablet 0.5 mg PO Q6H PRN PRN (Reason: anxiety) Qty: 20 0RF atorvastatin 40 mg tablet 40 mg PO HS Qty: 90 4RF Rx Instructions: 1 TAB HS lisinopril-hydrochlorothiazide 10-12.5 mg tablet 1 tab PO DAILY Qty: 90 3RF loperamide 2 mg capsule 2 mg PO Q6H PRN (Reason: loose stool) Qty: 30 5RF Myrbetriq 25 mg tablet extended release 24 hr 25 mg PO DAILY Qty: 90 3RF tramadol 50 mg tablet 25 - 50 mg PO Q8H PRN (Reason: pain) Qty: 30 0RF tramadol 50 mg tablet 50 mg PO Q6H PRNQty: 10 0RF Discontinued cranberry extract 200 mg capsule 200 mg PO DAILY Rx Instructions: administer with a meal Discharge Instructions Additional Instructions: rest today tomorrow up and walking up as tolerated shower in 24hrs diet as tolerated ice remove band-aide in 24hrs start megace when available (it may take pharmacy a few day to get the med in stock) tylenol as needed for pain. Protein shakes 1-2 per day in addition to meals -[facility] should call to schedule PET scan and biopsy next week -If there is any bleeding- hold pressure for 10 mins- if doens't stop go to the ER. If there is redness or swelling- go to ER. There may be clear yellow fluid leakage for 24-48 hrs. IF it doesn't stop after that- please call our office. F/u [facility] 06/25 10am Durga Activity:: Activity as Tolerated Remove Dressings/Wound Care:: 24 hours Shower/Bathe:: 24 hours Discharge Orders Discharge Orders: Discharge Order (Routine); Ordered 06/11/22 Ordered By: Blanca Jim DS: Diagnosis Discharge Diagnosis (1) Unexplained weight loss: Status: Acute (2) N&V (nausea and vomiting): Status: Acute (3) Protein-calorie malnutrition, mild: Status: Acute (4) Hypoalbuminemia due to protein-calorie malnutrition: Status: Acute (5) Chronic kidney disease with symptom management only, stage 4 (severe): Status: Acute (6) Abdominal pain: Status: Acute (7) Ascites, malignant: Status: Acute
--- NOTE | 2022-06-11 13:20 | W.PM.OP ---
Date of service: 06/11/22 Time of Service: 13:20 Operative Note Operative Note DATE OF PROCEDURE: 06/11/22 PRE-OP DIAGNOSIS: ascites-new onset. History of endometrial cancer POST-OP DIAGNOSIS: same (Path pending) PROCEDURE: Paracentesis SURGEON: Blanca Jim ANESTHESIA TYPE: Local By Surgeon Refer to Anesthesia Record ESTIMATED BLOOD LOSS: 0 PATHOLOGY: other COMPLICATIONS: None Patient was transported to: same day Patient's condition: stable Indications: Ascites on CT Procedure Description: The patient is brought to the procedure room and placed in the supine position.?? A time-out is done.? Ultrasound is used to localize the pocket of fluid.? The area is prepped and draped in the usual sterile fashion using a ChloraPrep scrub solution.? 10 cc's of 1% Lidocaine with epinephrine is used for local anesthetization.? The abdomen is punctured and the catheter is inserted.?1500 liters of light yellow fluid is evacuated today.? The catheter is removed.? Pressure dressing is applied.? The patient tolerated the procedure well without complication.
== END 2022-06-11 13:37 | disposition home or self-care (01) ==
PROVIDERS: PCP Family Medicine; Visit Provider Surgery
PROC: 0W9G3ZZ Drainage of Peritoneal Cavity, Percutaneous Approach (ICD-10-PCS; CPT 49082; principal; 2022-06-11 12:00)
DX: R18.0 Malignant ascites (principal); Z85.42 Personal history of malignant neoplasm of other parts of uterus
CPT/HCPCS: 49083; 36415; 49082; 80048; 84443; 85610; 88104; 88305; 88361

== ENCOUNTER → 2022-06-18 13:33 | Outpatient (BNVA) | payer MEDICARE, OTHER, SELFPAY | PROVIDERS: PCP Family Medicine; Referring Provider Family Medicine; Visit Provider Surgery | DX: C54.1 Malignant neoplasm of endometrium (principal); R18.0 Malignant ascites; R63.4 Abnormal weight loss; R11.2 Nausea with vomiting, unspecified; E44.1 Mild protein-calorie malnutrition; E66.01 Morbid (severe) obesity due to excess calories | CPT/HCPCS: 99213 ==

== ENCOUNTER 2022-07-01 10:08 | Inpatient (IN) | payer MEDICARE, OTHER, SELFPAY ==
[2022-07-01] VITALS (21 sets, daily range): BP systolic 70–108; BP diastolic 22–66; PULSE 65–90; RESP 12–31; TEMP 36.2–37.1; O2SAT 95–99
--- NOTE | 2022-07-01 10:30 | DI.RAD_ITS ---
Exam(s) XR CHEST 2V PA LATERAL EXAM: XR CHEST 2V PA LATERAL CLINICAL HISTORY: ?pneumonia TECHNIQUE: 2D digital imaging was performed. COMPARISON: No exams were available for comparison FINDINGS: HEART: Normal size. Aorta: Not dilated. PULMONARY VASCULATURE: Normal. LUNGS: Clear. PLEURAL SPACE: No pleural effusion or pneumothorax. BONE:Unremarkable for age. IMPRESSION: No acute abnormality. DATA REPOSITORY: RADIATION DOSE DELIVERED:
--- NOTE | 2022-07-01 10:30 | DI.CT_ITS ---
Exam(s) CT HEAD WO EXAM: CT HEAD WO CLINICAL HISTORY: altered mental status. TECHNIQUE: Imaging Protocol: Axial computed tomography images with coronal and sagittal reformatted images were created and reviewed COMPARISON: No exams were available for comparison FINDINGS: Ventricles and Extra axial spaces: Normal in size and morphology for the patient's age. Hemorrhage: None. Cerebral parenchyma: Mild atrophy. No evidence of mass or infarct. No significant white matter hurtado ges visible. Midline shift: None. Brainstem/Cerebellum: Normal. Calvarium: Normal. Visualized Paranasal sinuses/Mastoids: Clear. Soft Tissues: Unremarkable. IMPRESSION: No acute intracranial process. RADIATION DOSE DELIVERED: 697.68mGy.cm Total DLP DATA REPOSITORY: All CT scans at this facility are submitted to the National Radiology Data Registry (NRDR) Dose Index Registry (DIR) with the [employer] (A[employer]). RADIATION OPTIMIZATION: All CT scans at this facility use at least one of these dose optimization te chniques: automated exposure control; mA and/or kV adjustment per patient size (includes targeted exa ms where dose is matched to clinical indication); or iterative reconstruction.
--- NOTE | 2022-07-01 10:38 | W.ED.GENAD ---
Discharge Plan Disposition Patient Disposition: Admit to [facility] Condition: Stable Discharge Details Chief Complaint: Fall/Non TraumaCriteria Clinical Impression: Acute UTI, General weakness, AMS (altered mental status) Primary Care Provider: Prince Lowe ED Provider: Elmer Walker [place] Meds and New Rx's Prescriptions: No Action atenolol 25 mg tablet 25 mg PO DAILY Qty: 90 3RF levothyroxine 200 mcg tablet 200 mcg PO DAILY Qty: 90 3RF Rx Instructions: taking 5 days /week ondansetron HCl 4 mg tablet 4 mg PO Q6H PRN (Reason: nausea and vomiting) Qty: 20 0RF tramadol 100 mg tablet 100 mg PO Q6H PRN (Reason: pain) Qty: 20 0RF gabapentin 300 mg capsule 600 mg PO BID PRN atorvastatin 40 mg tablet 40 mg PO HS Qty: 90 4RF Rx Instructions: 1 TAB HS lisinopril-hydrochlorothiazide 10-12.5 mg tablet 1 tab PO DAILY Qty: 90 3RF loperamide 2 mg capsule 2 mg PO Q6H PRN (Reason: loose stool) Qty: 30 5RF Myrbetriq 25 mg tablet extended release 24 hr 25 mg PO DAILY Qty: 90 3RF tramadol 50 mg tablet 25 - 50 mg PO Q8H PRN (Reason: pain) Qty: 30 0RF lorazepam [Ativan] 1 mg tablet 0.5 mg PO DAILY PRN (Reason: anxiety) Qty: 10 0RF tramadol 50 mg tablet 50 mg PO Q6H PRNQty: 10 0RF megestrol 400 mg/10 mL (40 mg/mL) Suspension 400 mg PO DAILY 30 Days Qty: 480 6RF Medical Decision Making 72 yo female with hx of edometrial cancer and recent paracentesis showing omental metastases, who comes in with her mural artist with complaints of feeling off and general weakness for several days. She states she has issues with balance and weakness chronically but feels it is worse the last few days. She denies chest pain, dyspnea, cough, n/v. She intermittently has a fullness sensation in her abdomen but denies pain. She is caox4 on exam and is slow to answer some questions but does eventually answer them correctly. She has no focal neuro deficits, cn II-XII intact, soft nontender abdomen. Unclear etiology for her general malaise, will check cbc, cmp, ua, cxr and ct head to evaluate for possible mets. labs show mild keith, wbc of 18, cxr and ct head unremarkable. UA pending ua consistent with uti, ceftriaxone ordered. Discussed with pt and given her general weakness she doesn't feel safe to go home and I feel it is reasonable to admit. She is also interested in seeing palliative care as well. Will discuss with hospitalist Differential Diagnosis Differential Diagnosis: electrolyte abnormality, cancer progression, uti Medical Records Medical records reviewed: Yes I reviewed the patient's medical records. Imaging Data Radiologic Study: Attestation: I personally reviewed and interpreted this imaging study as follows: Imaging: CT Scan Radiologist's impression: no acute findings Radiologic Study #2: Attestation: I personally reviewed and interpreted this imaging study as follows: Imaging: X-Ray Radiologist's impression: no acute findings Lab Data Lab results reviewed: Yes I reviewed the patient's lab results. ECG Data Attestation: I personally reviewed and interpreted this ECG (s) as follows: Prior ECG tracings: available for review Interpretation: motion artifact sinus rhythm rate of 71, pr 136, no stemi HPI General Date/Time Provider Initiated Documentation: 07/01/22 10:17. Limitations to Documentation: no limitations. Information obtained by: patient and family. History of Present Illness 72 year old F presents to the emergency department with the chief complaint of feels off, described as moderate, Patient started experiencing this day(s) (2) and it has been constant. No relieving factors improve symptom(s), No exacerbating factors reported . Patient notes denies cough, fever/chills and shortness of breath. Patient did receive the following treatments prior to arrival, none Related Data Home Medications Medication Instructions Recorded Confirmed atorvastatin 40 mg tablet 40 mg PO HS #90 tab-caps 12/16/21 07/01/22 lisinopril 10 1 tab PO DAILY #90 tabs 02/10/22 07/01/22 mg-hydrochlorothiazide 12.5 mg tablet atenolol 25 mg tablet 25 mg PO DAILY #90 tabs 03/09/22 07/01/22 levothyroxine 200 mcg tablet 200 mcg PO DAILY #90 tab-caps 03/09/22 07/01/22 loperamide 2 mg capsule 2 mg PO Q6H PRN loose stool #30 03/13/22 07/01/22 caps gabapentin 300 mg capsule 600 mg PO BID PRN 05/13/22 06/21/22 mirabegron 25 mg tablet,extended 25 mg PO DAILY #90 tabs 05/24/22 07/01/22 release 24 hr (Myrbetriq) tramadol 50 mg tablet 25 - 50 mg PO Q8H PRN pain #30 tabs 06/08/22 07/01/22 tramadol 50 mg tablet 50 mg PO Q6H PRN #10 tabs 06/08/22 06/21/22 ondansetron HCl 4 mg tablet 4 mg PO Q6H PRN nausea and 06/10/22 07/01/22 vomiting #20 tabs megestrol 400 mg/10 mL (40 mg/mL) 400 mg (10 mL) PO DAILY appetite 06/11/22 07/01/22 oral suspension stimulant 30 days #480 mL lorazepam 1 mg tablet (Ativan) 0.5 mg PO DAILY PRN anxiety #10 06/17/22 07/01/22 tabs tramadol 100 mg tablet 100 mg PO Q6H PRN pain #20 tabs 06/18/22 07/01/22 Previous Rx's Medication Instructions Recorded atorvastatin 40 mg tablet 40 mg PO HS #90 tab-caps 12/16/21 lisinopril 10 1 tab PO DAILY #90 tabs 02/10/22 mg-hydrochlorothiazide 12.5 mg tablet atenolol 25 mg tablet 25 mg PO DAILY #90 tabs 03/09/22 levothyroxine 200 mcg tablet 200 mcg PO DAILY #90 tab-caps 03/09/22 loperamide 2 mg capsule 2 mg PO Q6H PRN loose stool #30 03/13/22 caps mirabegron 25 mg tablet,extended 25 mg PO DAILY #90 tabs 05/24/22 release 24 hr (Myrbetriq) tramadol 50 mg tablet 25 - 50 mg PO Q8H PRN pain #30 tabs 06/08/22 tramadol 50 mg tablet 50 mg PO Q6H PRN #10 tabs 06/08/22 ondansetron HCl 4 mg tablet 4 mg PO Q6H PRN nausea and 06/10/22 vomiting #20 tabs megestrol 400 mg/10 mL (40 mg/mL) 400 mg (10 mL) PO DAILY appetite 06/11/22 oral suspension stimulant 30 days #480 mL lorazepam 1 mg tablet (Ativan) 0.5 mg PO DAILY PRN anxiety #10 06/17/22 tabs tramadol 100 mg tablet 100 mg PO Q6H PRN pain #20 tabs 06/18/22 Allergies Allergy/AdvReac Type Severity Reaction Status Date / Time bupropion HCl AdvReac Intermediate tremors Verified 07/01/22 10:18 [From Wellbutrin] General Stated Complaint: Fall/Non TraumaCriteria LARRY: 3 Review of Systems All systems reviewed & are unremarkable except as noted in HPI and below Constitutional Constitutional: Denies chills and Denies fever(s) Cardiovascular Cardiovascular: Denies chest pain and Denies dyspnea Respiratory Respiratory: Denies cough and Denies dyspnea Gastrointestinal Gastrointestinal: Denies nausea and Denies vomiting Integumentary/Breasts Skin/Breast: Denies rash PFSH All Active Problems (Updated 07/01/22 @ 16:24 by Elmer Walker MD) Acute UTI (Acute) General weakness (Acute) AMS (altered mental status) (Acute) Omental metastasis (Acute) Endometrial ca (Acute) Ascites, malignant (Acute) Unexplained weight loss (Acute) N&V (nausea and vomiting) (Acute) Protein-calorie malnutrition, mild (Acute) Hypoalbuminemia due to protein-calorie malnutrition (Acute) Chronic kidney disease with symptom management only, stage 4 (severe) (Acute) Elevated creatine kinase (Acute) Peritoneal metastases (Acute) Abdominal pain (Acute) Medical History (Updated 07/01/22 @ 16:24 by Elmer Walker MD) Acne Carpal tunnel syndrome Chronic diarrhea Depressive disorder Diabetes mellitus (05/31/14) Edema Gastroesophageal reflux disease with esophagitis Herpes zoster (02/29/08) Hyperlipidemia (10/19/12) Hypertension better w/ current meds Hypothyroidism (10/19/12) Impaired fasting glucose (07/14/15) Malignant neoplasm of uterus (07/02/11) endometrial cancer (focal grade 3) noninvasive [place]O [place] [facility] [place] Morbid obesity Obstructive sleep apnea syndrome [facility] [place] sleep lab 2003 (pt stopped CPAP in 2010, re-start 2014 No Co Hosp sleep lab) Peripheral neuropathy leg numbness and unstable gait due th chemo Renal insufficiency [facility] [place] Nephrology eval 2006 Renal insufficiency Sensorineural hearing loss of both ears Vertigo (02/29/08) Vitamin B 12 deficiency (05/31/14) Vitamin D deficiency (07/14/15) Surgical History Colonoscopy - MAC (05/03/12) [facility] [place] Extraction of cataract 10/10/17 (R) eye; DR. ECKERT 10/31/17 (L) eye; Dr. Eckert GASTRIC STAPLING w/ esoph rupture and abcess History of gastric stapling History of hysterectomy for malignancy 2012 at [facility] [place] History of tonsillectomy and adenoidectomy Open Carpal Tunnel release B/L Status post carpal tunnel release Family History Mother , RENAL FAILURE at age 70. Essential hypertension Diabetes Heart disease Hyperlipidemia Father , KIDNEY FAILURE at age 60. Essential hypertension Heart disease Hyperlipidemia Maternal Grandfather No problems noted. Paternal Grandfather No problems noted. Maternal Grandmother Diabetes Paternal Grandmother No problems noted. Social History Smoking/Tobacco Use Status: Former Tobacco Use Quit Date: 04/25/84 Smoking risk assessment performed?: Yes Drug use: Never Substance use type: does not use Caregiver/Support person: No Household members: none Housing: house Communication Needs: Hard of Hearing and Corrective Lenses Do you need help understanding health information?: Never Pets and animals: Yes Pets and animals: dog(s) Sexually active: No Do you think of yourself as: straight/heterosexual Current gender identity: female What is your relationship status?: never How often do you talk on the phone with friends or family?: once per week How often do you get together with friends or relatives?: decline to answer Do you belong to any clubs or organized social groups?: no Panel score (0-1 are the most socially isolated patients): 0 What type of physical activity do you participate in: none Kia/Nondenominational: Mu-Ism Seatbelt use: always Helmet use: No Drive intox or ride w/intox pharmacy delivery driver: No Do you feel safe at home: Yes Victim of physical abuse: No Victim of emotional abuse: No Victim of sexual abuse: No Would you like helpful sources: No Female Reproductive History Menstrual Age of Menarche: 10 control method: none Menopause type: natural History History 0 Para Hx # Term Pregnancies Multiple births Hx # Pregnancies Ectopic pregnancies AB induced Hx Number of Living Children AB spontaneous Exam Const General: no acute distress Orientation: alert HENMT Head: normal to inspection Ears: external ears normal General nose exam: external nose normal Mouth: moist mucous membranes Eyes General: appearance normal, both eyes and all related structures Neck Neck: normal visual inspection Resp Effort & Inspection: normal respiratory effort and able to speak in complete sentences Auscultation: clear to auscultation bilaterally Cardio Jugular venous pressure: no JVD Rate: regular rate Heart Sounds: no murmurs GI Palpation: soft and nontender Skin General skin exam: no rashes or lesions noted Neuro General: patient alert and patient oriented x3 Extrem General: normal to inspection Psych Mental Status: mental status grossly normal Course Vital Signs Vital signs: Vital Signs Pulse 74 07/01/22 10:14 Respiratory Rate 18 07/01/22 10:14 Pulse Oximetry 99 07/01/22 10:14 Temperature Source Oral 07/01/22 10:14 Pulse 74 07/01/22 10:14 Respiratory Rate 18 07/01/22 10:14 Respiratory Effort Normal, Non-Labored 07/01/22 10:17 Pulse Oximetry 99 07/01/22 10:14 Oxygen Delivery Method Room Air 07/01/22 10:14 Oxygen Flow Rate 0 07/01/22 10:14
--- NOTE | 2022-07-01 11:00 | RT.EKG_ITS ---
APPROVED REPORT Exam: Resting ECG Reason for Exam: weakness Patient Location: E HR:71 bpm ECG Measurements Heart Rate 71 AXIS [place] 136 P -9 QRSd 89 QRS 64 QT 449 T 47 QTc 490 Conclusion Sinus rhythm...normal P axis, V-rate 60- 99 Atrial premature complex...SV complex w/ short R-R interval Borderline ST depression, anterolateral leads...ST <-0.07mV, I aVL V2-V6
[2022-07-01 11:08] LABS: Abs Immature Grans 0.79 10^3/uL (0.0-0.06); Absolute Basophil Count 0.11 10^3/uL (0.0-0.2); Absolute Eosinophil Count 0.06 10^3/uL (0.0-0.7); Basophils % 0.6; Eosinophils % 0.3; HCT 33.1 % (36.0-46.0); HGB 10.9 g/dL (11.2-15.7); Immature Grans % 4.2; Lymphocytes % 6.8; MCH 28.8 pg (27.0-33.0); MCHC 32.9 % (32.0-36.0); MCV 87 fL (80-95); MPV 9.7 fL (8.0-11.0); Monocytes % 5.3; Neutrophils % 82.8; Platelet Count 197 10^3/uL (130-400); RBC 3.79 10^6/uL (3.93-5.22); RDW 13.6 % (11.7-14.6); RDW-SD 42.6 fL; WBC 18.79 10^3/uL (4.4-10.8)
[2022-07-01 11:10] LABS: Absolute Lymphocyte Count 1.28 10^3/uL (1.2-3.4); Absolute Neutrophil Count 15.56 10^3/uL (1.2-6.7)
[2022-07-01 11:19] LABS: Diff Comment Diff Reviewed; RBC Morphology Normal
[2022-07-01 11:24] LABS: PTT Activated 27.4 sec (21.5-31.9); Prothrombin Time 12.7 sec (9.3-11.0)
[2022-07-01 11:25] LABS: INR 1.2 (0.9-1.1)
[2022-07-01 11:29] LABS: ALT 16 U/L (14-59); AST 28 U/L (15-37); Albumin 2.4 g/dL (3.4-5.0); Alkaline Phosphatase 217 U/L (46-116); Anion Gap 21.9 mmol/L (3-11); BUN 33 mg/dL (7-18); CO2 17.1 mmol/L (21.0-32.0); CREATININE 2.8 mg/dL (0.55-1.02); Calcium 9.1 mg/dL (8.5-10.1); Chloride 99 mmol/L (98-107); Estimated GFR 17.18 (mL/min/1.73m2); Glucose 166 mg/dL (74-106); Magnesium 1.4 mg/dL (1.8-2.4); Potassium 3.2 mmol/L (3.5-5.1); Sodium 138 mmol/L (136-145); Total Protein 7.1 g/dL (6.4-8.2); Troponin I < 50 ng/L (<or=60)
[2022-07-01 11:38] LABS: COVID-19 PCR Negative (Negative); Influenza A PCR Negative (Negative); Influenza B PCR Negative (Negative); RSV PCR Negative (Negative)
[2022-07-01 11:43] LABS: Source Nasopharynx
[2022-07-01 14:30] LABS: Troponin I < 50 ng/L (<or=60)
[2022-07-01 15:57] LABS: Bilirubin Moderate (Negative); Blood Small (Negative); Clarity Cloudy (Clear); Glucose 100 mg/dL (Negative); Ketones Trace mg/dL (Negative); Leukocyte Esterase Small (Negative); Nitrite Positive (Negative); Specific Gravity >= 1.030 (1.005-1.025); pH 5.5 (5-8)
[2022-07-01 15:59] LABS: Bacteria Moderate HPF (Negative); Crystals Negative HPF (Negative); Epithelial Cells Rare HPF (Negative); Mucus Trace (Negative)
[2022-07-01 16:00] LABS: C & S Indicated? Yes; Casts 0-2 Hyaline LPF (Negative)
[2022-07-01] MEDS: cefTRIAXone 2 GM/50 ML BAG IVPB (16:19)
--- NOTE | 2022-07-01 18:42 | W.PM.HP.N ---
Date of service: 07/01/22 Time of Service: 18:42 Assessment and Plan Assessment and plan (1) Acute UTI: Status: Acute Assessment and plan: Rocephin initiated in the ED. Cont Rocephin 1gram IV daily. Urine culture pending. (2) Endometrial ca: Status: Acute Assessment and plan: With omental metastasis. 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 S/P visist on 06/[address] Jim; discussed findings on paracentesis. She had an appt scheduled for day of this admission with Dr Vicente, [place] [facility] [place] She was unable to attend d/t significant symptoms secondary to UTI; confusion/feeling off, malaise/fatigue. I will call Dr Vicente tomorrow to discuss. (3) Omental metastasis: Status: Acute Assessment and plan: As above. (4) Ascites, malignant: Status: Acute Assessment and plan: As above. (5) Chronic kidney disease with symptom management only, stage 4 (severe): Status: Acute Assessment and plan: Creatinine has been increase since last year. Creatinine on admission 2.8. LIkely to see improvement with hydration. Monitor. (6) Hypothyroidism: Assessment and plan: Cont her usual replacement dosing. (7) Hypertension: Assessment and plan: SBP since arrival to [facility] have been low: 70's to low 100's. Cont daily atenolol with parameters to hold. (8) Hyperlipidemia: Assessment and plan: Cont atorvastatin. (9) Discharge planning issues: Status: Acute Assessment and plan: DNR/DNI. She is accepting of palliative care consult. She would like to make an informed decision on how to proceed with her care once she knows what input Dr Vicente, oncologist, has. History of Present Illness History of Present Illness Chief Complaint: Generalized weakness, feeling off Narrative: This is a 72 yo female with a h/o stage IV endometrial cancer with omental metastases, DM2, HTN, HLD, hypothyrodism, GHAZALA, peripheral neuropathy, CKD. She presented to the ED with c/o worsening generalized weakness and feeling off for several days. No fever, SOB, N/V. No slurred speech or focal weakness. + fullness in her abdomen that is worsened when sitting upright; she contributes this to likely a likely increase in ascites. Paracentesis performed on 06/11/[address] Jim. Pathology of the ascites showed the presence of adenocarcinoma cells. She was to meet with her oncologist on the day of this admission to discuss these results and what further plans to consider. Evaluation in the ED showed an elevated WBC count of 18. + UA. CXR was unremarkable. She was administered rocephin and admitted for further care and evaluation. Review of Systems All systems reviewed & are unremarkable except as noted in HPI and below PFSH All Active Problems (Updated 07/02/22 @ 07:04 by Keith Broderick MD) Discharge planning issues (Acute) Acute UTI (Acute) General weakness (Acute) AMS (altered mental status) (Acute) Omental metastasis (Acute) Endometrial ca (Acute) Ascites, malignant (Acute) Unexplained weight loss (Acute) N&V (nausea and vomiting) (Acute) Protein-calorie malnutrition, mild (Acute) Hypoalbuminemia due to protein-calorie malnutrition (Acute) Chronic kidney disease with symptom management only, stage 4 (severe) (Acute) Elevated creatine kinase (Acute) Peritoneal metastases (Acute) Abdominal pain (Acute) Medical History Acne Carpal tunnel syndrome Chronic diarrhea Depressive disorder Diabetes mellitus (05/31/14) Edema Gastroesophageal reflux disease with esophagitis Herpes zoster (02/29/08) Hyperlipidemia (10/19/12) Hypertension better w/ current meds Hypothyroidism (10/19/12) Impaired fasting glucose (07/14/15) Malignant neoplasm of uterus (07/02/11) endometrial cancer (focal grade 3) noninvasive [place]O [place] [facility] [place]11 Morbid obesity Obstructive sleep apnea syndrome [facility] [place] lab 2003 (pt stopped CPAP in 2010, re-start 2014 No Id Hosp sleep lab) Peripheral neuropathy leg numbness and unstable gait due th chemo Renal insufficiency [facility] [place] Nephrology eval 2006 Renal insufficiency Sensorineural hearing loss of both ears Vertigo (02/29/08) Vitamin B 12 deficiency (05/31/14) Vitamin D deficiency (07/14/15) Surgical History Colonoscopy - MAC (05/03/12) [facility] [place] Extraction of cataract 10/10/17 (R) eye; DR. ECKERT 7/9/18 (L) eye; Dr. Eckert GASTRIC STAPLING w/ esoph rupture and abcess History of gastric stapling History of hysterectomy for malignancy 2011 at [facility] [place] History of tonsillectomy and adenoidectomy Open Carpal Tunnel release B/L Status post carpal tunnel release Family History Mother , RENAL FAILURE at age 70. Essential hypertension Diabetes Heart disease Hyperlipidemia Father , KIDNEY FAILURE at age 60. Essential hypertension Heart disease Hyperlipidemia Maternal Grandfather No problems noted. Paternal Grandfather No problems noted. Maternal Grandmother Diabetes Paternal Grandmother No problems noted. Social History Smoking/Tobacco Use Status: Former Tobacco Use Quit Date: 04/25/84 Smoking risk assessment performed?: Yes Drug use: Never Substance use type: does not use Caregiver/Support person: No Household members: none Housing: house Communication Needs: Hard of Hearing and Corrective Lenses Do you need help understanding health information?: Never Pets and animals: Yes Pets and animals: dog(s) Sexually active: No Do you think of yourself as: straight/heterosexual Current gender identity: female What is your relationship status?: never How often do you talk on the phone with friends or family?: once per week How often do you get together with friends or relatives?: decline to answer Do you belong to any clubs or organized social groups?: no Panel score (0-1 are the most socially isolated patients): 0 What type of physical activity do you participate in: none Kia/Confucianism: Religion Seatbelt use: always Helmet use: No Drive intox or ride w/intox escort vehicle driver: No Do you feel safe at home: Yes Victim of physical abuse: No Victim of emotional abuse: No Victim of sexual abuse: No Would you like helpful sources: No Female Reproductive History Menstrual Age of Menarche: 10 control method: none Menopause type: natural History History 0 Para Hx # Term Pregnancies Multiple births Hx # Pregnancies Ectopic pregnancies AB induced Hx Number of Living Children AB spontaneous Meds Allergies and Home Medications Allergies Allergy/AdvReac Type Severity Reaction Status Date / Time bupropion HCl AdvReac Intermediate tremors Verified 07/01/22 10:18 [From Wellbutrin] Home Medications Medication Instructions Recorded Confirmed Type atorvastatin 40 mg tablet 40 mg PO HS #90 tab-caps 12/16/21 07/01/22 Rx lisinopril 10 1 tab PO DAILY #90 tabs 02/10/22 07/01/22 Rx mg-hydrochlorothiazide 12.5 mg tablet atenolol 25 mg tablet 25 mg PO DAILY #90 tabs 03/09/22 07/01/22 Rx levothyroxine 200 mcg tablet 200 mcg PO DAILY #90 tab-caps 03/09/22 07/01/22 Rx loperamide 2 mg capsule 2 mg PO Q6H PRN loose stool #30 03/13/22 07/01/22 Rx caps gabapentin 300 mg capsule 600 mg PO BID PRN 05/13/22 06/21/22 History mirabegron 25 mg tablet,extended 25 mg PO DAILY #90 tabs 05/24/22 07/01/22 Rx release 24 hr (Myrbetriq) tramadol 50 mg tablet 25 - 50 mg PO Q8H PRN pain #30 tabs 06/08/22 07/01/22 Rx tramadol 50 mg tablet 50 mg PO Q6H PRN #10 tabs 06/08/22 06/21/22 Rx ondansetron HCl 4 mg tablet 4 mg PO Q6H PRN nausea and 06/10/22 07/01/22 Rx vomiting #20 tabs megestrol 400 mg/10 mL (40 mg/mL) 400 mg (10 mL) PO DAILY appetite 06/11/22 07/01/22 Rx oral suspension stimulant 30 days #480 mL lorazepam 1 mg tablet (Ativan) 0.5 mg PO DAILY PRN anxiety #10 06/17/22 07/01/22 Rx tabs tramadol 100 mg tablet 100 mg PO Q6H PRN pain #20 tabs 06/18/22 07/01/22 Rx Exam Narrative Exam Narrative: Patient is lying supine. NAD. Conversant. Const General: cooperative and no acute distress Nutritional Appearance: obese Orientation: alert and oriented x3 HENMT Head: normocephalic and atraumatic Ears: hearing grossly normal bilaterally Eyes General: appearance normal, both eyes and all related structures Sclera: sclerae normal Resp Effort & Inspection: normal respiratory effort Auscultation: clear to auscultation bilaterally Cardio Rate: regular rate Rhythm: regular rhythm GI Inspection: obesity Palpation: soft, tender (diffuse, mild) and ascites Auscultation: normal bowel sounds Skin General skin exam: no rashes or lesions noted Neuro General: no focal motor deficits Cranial Nerves: facial strength normal Cognition: normal cognition Speech: speech normal Extrem General: edema Laterality: left (Nonpitting.) Left lower extremity: abnormal to inspection (faint dusky discoloration below the knee with swelling. Nontender.) Psych Appearance: grossly normal Mental Status: mental status grossly normal Speech and Movement: speech and movement normal Affect: normal affect Results Labs 07/01/22 11:00 07/01/22 11:00 Labs: Laboratory Results - last 24 hr 07/01/22 07/01/22 07/01/22 10:55 11:00 11:00 WBC 18.79 H RBC 3.79 L Hgb 10.9 L Hct 33.1 L MCV 87 MCH 28.8 MCHC 32.9 RDW 13.6 Plt Count 197 MPV 9.7 Immature Gran % 4.2 Neutrophils % 82.8 Lymphocytes % 6.8 Monocytes % 5.3 Eosinophils % 0.3 Basophils % 0.6 Nucleated RBC % 0.0 Absolute Neutrophils 15.56 H Absolute Lymphocytes 1.28 Absolute Monocytes 1.00 H Absolute Eosinophils 0.06 Absolute Basophils 0.11 RBC Morphology Normal PT INR APTT Sodium 138 Potassium 3.2 L Chloride 99 Carbon Dioxide 17.1 L Anion Gap 21.9 H BUN 33 H Creatinine 2.8 H Est GFR (CKD-EPI 2020) 17.18 Glucose 166 H Calcium 9.1 Magnesium 1.4 L Total Bilirubin 1.0 AST 28 ALT 16 Alkaline Phosphatase 217 H Troponin I < 50 Total Protein 7.1 Albumin 2.4 L Urine Color Urine Clarity Urine pH Ur Specific [place] Urine Protein Urine Ketones Urine Blood Urine Nitrite Urine Bilirubin Urine Urobilinogen Ur Leukocyte Esterase Urine RBC Urine WBC Ur Epithelial Cells Urine Crystals Urine Bacteria Urine Casts Urine Mucus Ur Culture Indicated? Urine Glucose COVID-19 Source Nasopharynx SARS-CoV-2 (PCR) Negative Influenza Type A (PCR) Negative Influenza Type B (PCR) Negative RSV (PCR) Negative 07/01/22 07/01/22 07/01/22 11:00 14:00 15:45 WBC RBC Hgb Hct MCV MCH MCHC RDW Plt Count MPV Immature Gran % Neutrophils % Lymphocytes % Monocytes % Eosinophils % Basophils % Nucleated RBC % Absolute Neutrophils Absolute Lymphocytes Absolute Monocytes Absolute Eosinophils Absolute Basophils RBC Morphology PT 12.7 H INR 1.2 H APTT 27.4 Sodium Potassium Chloride Carbon Dioxide Anion Gap BUN Creatinine Est GFR (CKD-EPI 2020) Glucose Calcium Magnesium Total Bilirubin AST ALT Alkaline Phosphatase Troponin I < 50 Total Protein Albumin Urine Color Yellow Urine Clarity Cloudy Urine pH 5.5 Ur Specific [place] >= 1.030 H Urine Protein 100 H Urine Ketones Trace H Urine Blood Small H Urine Nitrite Positive H Urine Bilirubin Moderate H Urine Urobilinogen 1.0 H Ur Leukocyte Esterase Small H Urine RBC 3-5 H Urine WBC 10-20 H Ur Epithelial Cells Rare Urine Crystals Negative Urine Bacteria Moderate Urine Casts 0-2 Hyaline Urine Mucus Trace Ur Culture Indicated? Yes Urine Glucose 100 H COVID-19 Source SARS-CoV-2 (PCR) Influenza Type A (PCR) Influenza Type B (PCR) RSV (PCR) Last Vital Signs Temp 36.2 C L 07/01/22 18:07 Pulse 85 07/01/22 18:07 Resp 12 07/01/22 18:07 BP 108/50 L 07/01/22 18:07 Pulse Ox 99 07/01/22 18:07 Time Spent Time spent with Patient: 40-54 minutes Time was spent: preparing to see the patient(eg.review tests), obtaining and/or reviewing separately otained hiistory, ordering medications,tests, procedures, indepentently interpreting results and counseling the patient
[2022-07-01] MEDS: MAGNESIUM SULFATE 4 GM/100 ML BAG IVPB (19:03)
[2022-07-01] MEDS: Normal Saline Flush 10 ML SYR IVP ×2 (19:03→19:22)
[2022-07-01] MEDS: Ondansetron 4 MG/2 ML VIAL IVP (19:21)
[2022-07-01] MEDS: LORazepam 0.5 MG TAB PO (19:50)
[2022-07-01] MEDS: Polyethylene Glycol 3350 17 GM PACKET PO (19:51)
[2022-07-01] MEDS: Methylnaltrexone 12 MG/0.6 ML VIAL SC (19:51)
[2022-07-01] MEDS: traMADol 50 MG TAB 100 MG PO (19:51)
[2022-07-01] MEDS: Heparin 5,000 UNITS/ML VIAL 5000 UNITS SC (21:29)
[2022-07-01] MEDS: Atorvastatin 40 MG TAB PO (21:29)
--- NOTE | 2022-07-02 | DI.US_ITS ---
Exam(s) US LOWER EXTREMITY VENOUS LT EXAM: US LOWER EXTREMITY VENOUS LT CLINICAL HISTORY: swelling and discoloration TECHNIQUE: Left lower extremity venous ultrasound performed using grayscale, color-flow, and spectra l Doppler analysis. COMPARISON: No exams were available for comparison FINDINGS: There is hypoechoic thrombus involving the common femoral, profundus, femoral, popliteal and posterio r tibialis veins. There is thrombus seen in the greater saphenous vein. Delete there is no evidence of a Fleming cyst. The soft tissues are unremarkable. IMPRESSION: 1. Extensive left lower extremity thrombus extending from the common femoral vein all the way to the popliteal vein and posterior tibialis veins, including the greater saphenous vein. 2. The hospitalist was informed of the results at 9:56 a.m. on 07/02/2022. DATA REPOSITORY:
[2022-07-02] MEDS: Normal Saline 1,000 ML 80 ML IV (00:53)
[2022-07-02] MEDS: Ondansetron 4 MG/2 ML VIAL IVP ×3 (02:33→15:51)
[2022-07-02] MEDS: Normal Saline Flush 10 ML SYR IVP ×3 (02:33→15:52)
[2022-07-02] MEDS: Normal Saline 500 ML IV (04:32)
[2022-07-02] MEDS: Levothyroxine 100 MCG TAB (05:31)
[2022-07-02] MEDS: Heparin 5,000 UNITS/ML VIAL 5000 UNITS SC (06:10)
[2022-07-02 06:44] LABS: HCT 28.4 % (36.0-46.0); HGB 9.5 g/dL (11.2-15.7); MCH 28.4 pg (27.0-33.0); MCHC 33.5 % (32.0-36.0); MCV 85 fL (80-95); MPV 10.1 fL (8.0-11.0); Platelet Count 129 10^3/uL (130-400); RBC 3.34 10^6/uL (3.93-5.22); RDW 13.7 % (11.7-14.6); RDW-SD 42.1 fL; WBC 10.99 10^3/uL (4.4-10.8)
[2022-07-02 06:54] LABS: BUN 33 mg/dL (7-18); CO2 22.6 mmol/L (21.0-32.0); CREATININE 2.8 mg/dL (0.55-1.02); Calcium 8.6 mg/dL (8.5-10.1); Chloride 103 mmol/L (98-107); Estimated GFR 17.18 (mL/min/1.73m2); Glucose 118 mg/dL (74-106); Magnesium 3.1 mg/dL (1.8-2.4); Potassium 4.4 mmol/L (3.5-5.1)
[2022-07-02 06:58] LABS: Anion Gap 11.4 mmol/L (3-11); Sodium 137 mmol/L (136-145)
[2022-07-02 07:19] VITALS: BP 157/69; PULSE 77; RESP 17; TEMP 36.7; O2SAT 99
[2022-07-02] MEDS: Polyethylene Glycol 3350 17 GM PACKET PO (08:57)
[2022-07-02] MEDS: LORazepam 0.5 MG TAB PO ×2 (08:59→19:58)
[2022-07-02] MEDS: Atenolol 25 MG TAB PO (08:59)
[2022-07-02] MEDS: cefTRIAXone 1 GM/50 ML BAG IVPB (08:59)
--- NOTE | 2022-07-02 10:40 | PDOC.CMIN ---
- If Service Date Differs Date of service: 07/02/22 Time of Service: 10:40 Care Management Initial Assess REASON FOR HOSPITALIZATION:: UTI, Metastatic endometrial cancer, FTT PAST MEDICAL HISTORY/PAST SURGICAL HISTORY:: Medical History . Acne. Carpal tunnel syndrome. Chronic diarrhea. Depressive disorder. Diabetes mellitus (05/31/14). Edema. Gastroesophageal reflux disease with esophagitis. Herpes zoster (02/29/08). Hyperlipidemia (10/19/12). Hypertension. better w/ current meds. Hypothyroidism (10/19/12). Impaired fasting glucose (07/14/15). Malignant neoplasm of uterus (07/02/11). endometrial cancer (focal grade 3) noninvasive. TLH/BSO at [facility] 06/24/11. Morbid obesity. Obstructive sleep apnea syndrome. [facility] sleep lab 2003 (pt stopped CPAP in 2010, re-start 2014 No Co Hosp sleep lab). Peripheral neuropathy. leg numbness and unstable gait due th chemo. Renal insufficiency. [facility] Nephrology eval 2005. Renal insufficiency. Sensorineural hearing loss of both ears. Vertigo (02/29/08). Vitamin B 12 deficiency (05/31/14). Vitamin D deficiency (07/14/15). Surgical History . Colonoscopy - MAC (05/03/12). [facility]. Extraction of cataract. 10/10/17. (R) eye; DR. ECKERT. 10/31/17. (L) eye; Dr. Eckert. GASTRIC STAPLING. w/ esoph rupture and abcess. History of gastric stapling. History of hysterectomy for malignancy. 2012 at [facility]. History of tonsillectomy and adenoidectomy. Open Carpal Tunnel release. B/L. Status post carpal tunnel release PREVIOUS FUNCTIONAL STATUS/SOCIAL/FAMILY SUPPORTS:: Susanne resides in [place]. Her friend Katia is her main support. 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 CURRENT FUNCTIONAL STATUS:: Susanne has been struggling with increased weakness and fell prior to admission, spending two hours on the ground before being found by her friend, Katia. Currently, per instrument lens generator Susanne requires assistance with all ADLs except eating. ADVANCE DIRECTIVES:: None on file. Has patient been provided with info about the portal/API?: No Did the patient sign up for the portal?: No CODE STATUS:: DNR/DNI INSURANCE COVERAGE / FINANCIAL ISSUES:: Medicare. Gale hollins Ilene CURRENT HOME/COMMUNITY SERVICES/EQUIPMENT:: Dr. Vicente, oncologist at [facility] PRIMARY CARE PHYSICIAN:: Prince Lowe M.D. POTENTIAL DISCHARGE NEEDS:: Evaluation for further needs and increased services. PATIENT/FAMILY EDUCATION NEEDS:: Review discharge instructions, discuss Ask Me Three. ANTICIPATED BARRIERS TO DISCHARGE:: None identified. TRANSPORTATION:: Via private vehicle with a friend. PLAN:: Per Palliative, Susanne is considering discharging to the [facility] due to increased weakness. CM continues to follow.
[2022-07-02] MEDS: Apixaban 5 MG TAB 10 MG PO (11:53)
[2022-07-02 12:46] LABS: Lab Add On Test DONE
--- NOTE | 2022-07-02 14:09 | CHAPLAIN ---
Erica was finishing a conversation with hospitalist Dr. Broderick, when I stopped in. She told me about being treated for endometrial cancer in the past, and now she may be dealing with cancer again. 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 Erica said her only relatives are two cousins who both live at a distance, but she has a very close friend/former coworker, who lives in [place]. Erica lives in [place]. She said getting appointments and then getting to appointments have been challenging. Erica was list on the Scientologist Roster as being part of [facility], although she has not attended recently. When I asked if she'd like a visit from Rev. Lizy Luna of [place], Erica indicated she's like to meet her. Lizy came up later to visit rEica.
--- NOTE | 2022-07-02 14:47 | W.PALLCONSUL ---
Date of service: 07/02/22 Time of Service: 14:47 History of Present Illness Narrative: Susanne was seen in her hospital room with her friend and support person, Katia present. She is currently being treated for UTI after she was found down by Katia at her home. She had been in bed for a week. She has a new Dx of metastatic cancer. It was originally thought to be r/t her previous endometrial cancer, however, Dr. Broderick was able to speak to Dr. Vicente, [facility] oncology and he does not believe this is a recurrence of her endometrial cancer (12 years ago). He sounds optimistic about her prognosis if she can tolerate treatment. She has not met with Dr. Vicente yet, she was supposed to meet with him yesterday but she ended up in the [facility]. She could not make it to the appointment due to severe weakness. She is interested in hearing what Dr. Vicente has to say. She plans to meet with him after her discharge. She lives in her own home. She lives alone. She does not have any local family and Katia is her only support person. Katia lives in [place], she she is not close by. Susanne does not think she can return to her home. She states, I have no mobility and went on to explain that she has not been walking at home. She has been weak, fatigued and has peripheral neuropathy. She also does not have running water at home. She is agreeable to going to rehab, she would prefer the [facility], she worked there for 16 years. She reports that she has been nauseated, zofran helps. She is constipated, she had relistor yesterday and had a small BM. She is taking tramadol for pain. If she does not move, she is comfortable. She has shooting pains at times. She has leg aches at times. She feels her ascites is building up again. She had a paracentesis on 06/11, they took 1500 cc. She reports that she has lost 30 pounds over the last 3-4 months. She was working up to about one month ago. Additional supports: She has 2 close cousins but they live in [place], [place] and [place], [place] and are not able to get to [place]. They are supportive by phone. Discussed Advanced care plans. She has a COLST, Katia will bring a copy. She is a DNR/DNI. She previously filled out a health care agent form, but she cannot find it. We completed a new form today. She has named Katia Bhanu to be her HCA. She is agreeable to being followed by Palliative after discharge. Assessment and Plan Assessment and plan (1) Acute DVT (deep venous thrombosis): Status: Acute (2) Acute UTI: Status: Acute (3) General weakness: Status: Acute (4) AMS (altered mental status): Status: Acute (5) Unexplained weight loss: Status: Acute (6) N&V (nausea and vomiting): Status: Acute (7) Chronic kidney disease with symptom management only, stage 4 (severe): Status: Acute (8) Cancer related pain: Status: Acute (9) Palliative care encounter: Status: Acute Assessment and plan: Susanne was seen to establish Palliative care. She has a past medical Hx significant for endometrial cancer. She has new findings of omental and diaphragmatic metastases. She has not met with Dr. Vicente, [facility] oncology yet. She would consider chemo if that is an option. She lives alone and has a friend that helps her. Her friend, Katia, lives >30 minutes from her and works security field supervisor she she cannot help as much as needed. She cannot ambulate and does not think she can return to her home. She is open to going to SNF, she worked at the [facility] years and would prefer to go there. She has previously established that she is a DNR/DNI. She has a COLST but it is not on file- Katia will bring it in to be scanned into her chart. Her pain is controlled with tramadol at this time. Zofran helps her nausea. She is interested in f/u by Palliative care. Palliative will continue to follow while in the hospital and after discharge. Review of Systems Constitutional Constitutional: Reports as per HPI ON LICENSE OF [facility] All Active Problems (Updated 07/06/22 @ 09:08 by Suha Farley MD) Cancer related pain (Acute) Palliative care encounter (Acute) Acute DVT (deep venous thrombosis) (Acute) Discharge planning issues (Acute) Acute UTI (Acute) General weakness (Acute) AMS (altered mental status) (Acute) Omental metastasis (Acute) Ascites, malignant (Acute) Unexplained weight loss (Acute) N&V (nausea and vomiting) (Acute) Protein-calorie malnutrition, mild (Acute) Hypoalbuminemia due to protein-calorie malnutrition (Acute) Chronic kidney disease with symptom management only, stage 4 (severe) (Acute) Elevated creatine kinase (Acute) Peritoneal metastases (Acute) Abdominal pain (Acute) Medical History Acne Carpal tunnel syndrome Chronic diarrhea Depressive disorder Diabetes mellitus (05/31/14) Edema Gastroesophageal reflux disease with esophagitis Herpes zoster (02/29/08) Hyperlipidemia (10/19/12) Hypertension better w/ current meds Hypothyroidism (10/19/12) Impaired fasting glucose (07/14/15) Malignant neoplasm of uterus (07/02/11) endometrial cancer (focal grade 3) noninvasive TLH/BSO at [facility] 06/24/11 Morbid obesity Obstructive sleep apnea syndrome [facility] sleep lab 2003 (pt stopped CPAP in 2010, re-start 2014 No Co Hosp sleep lab) Peripheral neuropathy leg numbness and unstable gait due th chemo Renal insufficiency [facility] Nephrology eval 2006 Renal insufficiency Sensorineural hearing loss of both ears Vertigo (02/29/08) Vitamin B 12 deficiency (05/31/14) Vitamin D deficiency (07/14/15) Surgical History Colonoscopy - MAC (05/03/12) [facility] Extraction of cataract 10/10/17 (R) eye; DR. ECKERT 10/31/17 (L) eye; Dr. Eckert GASTRIC STAPLING w/ esoph rupture and abcess History of gastric stapling History of hysterectomy for malignancy 2011 at [facility] History of tonsillectomy and adenoidectomy Open Carpal Tunnel release B/L Status post carpal tunnel release Family History Mother , RENAL FAILURE at age 70. Essential hypertension Diabetes Heart disease Hyperlipidemia Father , KIDNEY FAILURE at age 60. Essential hypertension Heart disease Hyperlipidemia Maternal Grandfather No problems noted. Paternal Grandfather No problems noted. Maternal Grandmother Diabetes Paternal Grandmother No problems noted. Social History Smoking/Tobacco Use Status: Former Tobacco Use Quit Date: 04/25/84 Smoking risk assessment performed?: Yes Drug use: Never Substance use type: does not use Caregiver/Support person: No Household members: none Housing: house Communication Needs: Hard of Hearing and Corrective Lenses Do you need help understanding health information?: Never Pets and animals: Yes Pets and animals: dog(s) Sexually active: No Do you think of yourself as: straight/heterosexual Current gender identity: female What is your relationship status?: never How often do you talk on the phone with friends or family?: once per week How often do you get together with friends or relatives?: decline to answer Do you belong to any clubs or organized social groups?: no Panel score (0-1 are the most socially isolated patients): 0 What type of physical activity do you participate in: none Kia/Jain: Roman Catholic Seatbelt use: always Helmet use: No Drive intox or ride w/intox straddle bug driver: No Do you feel safe at home: Yes Victim of physical abuse: No Victim of emotional abuse: No Victim of sexual abuse: No Would you like helpful sources: No Female Reproductive History Menstrual Age of Menarche: 10 control method: none Menopause type: natural History History 0 Para Hx # Term Pregnancies Multiple births Hx # Pregnancies Ectopic pregnancies AB induced Hx Number of Living Children AB spontaneous Exam Narrative Exam Narrative: General: very pleasant, elderly female, laying in her hospital bed, she is awake and alert, appears mildly uncomfortable at times with emesis bag in hand. She is alert and oriented, talkative. Answers questions appropriately. HEENT: normocephalic, atraumatic, EOMI, mmm. Neck: supple Respiratory: respirations appear even and unlabored. GI: abd softly distended, mild tenderness on gentle palpation. Extremities: LLE edematous, warm with ecchymosis. Results Last Vital Signs Temp 36.7 C 07/02/22 07:19 Pulse 77 07/02/22 07:19 Resp 17 07/02/22 07:19 BP 157/69 H 07/02/22 07:19 Pulse Ox 99 07/02/22 07:19 Labs 07/02/22 06:15 07/02/22 06:15 Labs: Laboratory Results - last 24 hr 07/01/22 07/02/22 07/02/22 15:45 06:15 06:15 WBC 10.99 H RBC 3.34 L Hgb 9.5 L Hct 28.4 L MCV 85 MCH 28.4 MCHC 33.5 RDW 13.7 Plt Count 129 L MPV 10.1 Sodium 137 Potassium 4.4 D Chloride 103 Carbon Dioxide 22.6 Anion Gap 11.4 H BUN 33 H Creatinine 2.8 H Est GFR (CKD-EPI 2020) 17.18 Glucose 118 H Calcium 8.6 Magnesium 3.1 H Urine Color Yellow Urine Clarity Cloudy Urine pH 5.5 Ur Specific [place] >= 1.030 H Urine Protein 100 H Urine Ketones Trace H Urine Blood Small H Urine Nitrite Positive H Urine Bilirubin Moderate H Urine Urobilinogen 1.0 H Ur Leukocyte Esterase Small H Urine RBC 3-5 H Urine WBC 10-20 H Ur Epithelial Cells Rare Urine Crystals Negative Urine Bacteria Moderate Urine Casts 0-2 Hyaline Urine Mucus Trace Ur Culture Indicated? Yes Urine Glucose 100 H Add-On Test Request 07/02/22 Unknown WBC RBC Hgb Hct MCV MCH MCHC RDW Plt Count MPV Sodium Potassium Chloride Carbon Dioxide Anion Gap BUN Creatinine Est GFR (CKD-EPI 2020) Glucose Calcium Magnesium Urine Color Urine Clarity Urine pH Ur Specific [place] Urine Protein Urine Ketones Urine Blood Urine Nitrite Urine Bilirubin Urine Urobilinogen Ur Leukocyte Esterase Urine RBC Urine WBC Ur Epithelial Cells Urine Crystals Urine Bacteria Urine Casts Urine Mucus Ur Culture Indicated? Urine Glucose Add-On Test Request DONE
[2022-07-02 15:32] VITALS: BP 123/66; PULSE 77; RESP 16; TEMP 35.9; O2SAT 96
--- NOTE | 2022-07-02 16:03 | PT.INNT ---
Date of service: 07/02/22 Time of Service: 16:03 PT Notes Visit Reasons: UTI, Metastatic Endometrial Cancer,FTT Patient in the middle of assessment with Nurse Jessica, just got done with palliative care consult, and is feeling significantly nauseous. She has been diagnosed with L LE DVT from this morning's ultrasound and has just taken a dose of Eliquis. Hospitalist DIRECTOR DIGITAL ADVERTISING Cely is agreeable to moving patient from bed to chair if agreeable. However, upon visit, patient expressed that she is fatigued and needed some rest. Patient politely declined PT evaluation this afternoon and requested to be seen tomorrow morning instead. On-call PT Roxie notified about the matter via [employer] right away.
--- NOTE | 2022-07-02 16:36 | W.PM.HP.N ---
Date of service: 07/02/22 Time of Service: 16:36 Assessment and Plan Assessment and plan (1) Acute DVT (deep venous thrombosis): Status: Acute Assessment and plan: Heparin drip per hospitalist (2) Ascites, malignant: Status: Acute Assessment and plan: Plan on paracentesis in a.m. for supportive care. (3) Malignant neoplasm of uterus: (4) Acute UTI: Status: Acute (5) General weakness: Status: Acute (6) AMS (altered mental status): Status: Acute (7) Omental metastasis: Status: Acute (8) Endometrial ca: Status: Acute (9) Unexplained weight loss: Status: Acute (10) N&V (nausea and vomiting): Status: Acute (11) Protein-calorie malnutrition, mild: Status: Acute (12) Hypoalbuminemia due to protein-calorie malnutrition: Status: Acute (13) Chronic kidney disease with symptom management only, stage 4 (severe): Status: Acute (14) Elevated creatine kinase: Status: Acute (15) Peritoneal metastases: Status: Acute (16) Abdominal pain: Status: Acute (17) Gastroesophageal reflux disease with esophagitis: (18) Hyperlipidemia: (19) Hypertension: (20) Hypothyroidism: (21) Impaired fasting glucose: (22) Morbid obesity: (23) Obstructive sleep apnea syndrome: (24) Peripheral neuropathy: (25) Renal insufficiency: History of Present Illness Narrative: Patient is well-known to the surgical service. She has carcinomatosis. She had a previous paracentesis and cytology done that shows an adenocarcinoma consistent with her previous endometrial carcinoma cell type. CT of the abdomen and pelvis has been done. I did review her case with IR at [facility]. There is nothing that they can biopsy. They did recommend doing an MRI. This is still pending. A PET scan is also pending. She does have a consult with oncology pd. Today patient is being admitted with dehydration, acute UTI, and a DVT. She will be started on heparin. we will plan on doing a paracentesis in a.m. Risk versus benefits including bleeding infection, continuous drainage, complications from local anesthetics, and damage to bowel or blood vessels. Patient is uncomfortable but does not have peritonitis. At this point I think it is more important that we address her acute DVT. PFSH All Active Problems (Updated 07/02/22 @ 16:57 by Blanca Jim DO) Acute DVT (deep venous thrombosis) (Acute) Discharge planning issues (Acute) Acute UTI (Acute) General weakness (Acute) AMS (altered mental status) (Acute) Omental metastasis (Acute) Endometrial ca (Acute) Ascites, malignant (Acute) Unexplained weight loss (Acute) N&V (nausea and vomiting) (Acute) Protein-calorie malnutrition, mild (Acute) Hypoalbuminemia due to protein-calorie malnutrition (Acute) Chronic kidney disease with symptom management only, stage 4 (severe) (Acute) Elevated creatine kinase (Acute) Peritoneal metastases (Acute) Abdominal pain (Acute) Medical History Acne Carpal tunnel syndrome Chronic diarrhea Depressive disorder Diabetes mellitus (05/31/14) Edema Gastroesophageal reflux disease with esophagitis Herpes zoster (02/29/08) Hyperlipidemia (10/19/12) Hypertension better w/ current meds Hypothyroidism (10/19/12) Impaired fasting glucose (07/14/15) Malignant neoplasm of uterus (07/02/11) endometrial cancer (focal grade 3) noninvasive TLH/BSO at [facility] 06/24/11 Morbid obesity Obstructive sleep apnea syndrome [facility] sleep lab 2003 (pt stopped CPAP in 2010, re-start 2014 No Co Hosp sleep lab) Peripheral neuropathy leg numbness and unstable gait due th chemo Renal insufficiency [facility] Nephrology eval 2006 Renal insufficiency Sensorineural hearing loss of both ears Vertigo (02/29/08) Vitamin B 12 deficiency (05/31/14) Vitamin D deficiency (07/14/15) Surgical History Colonoscopy - MAC (05/03/12) [facility] Extraction of cataract 10/10/17 (R) eye; DR. ECKERT 10/31/17 (L) eye; Dr. Eckert GASTRIC STAPLING w/ esoph rupture and abcess History of gastric stapling History of hysterectomy for malignancy 2011 at [facility] History of tonsillectomy and adenoidectomy Open Carpal Tunnel release B/L Status post carpal tunnel release Family History Mother , RENAL FAILURE at age 70. Essential hypertension Diabetes Heart disease Hyperlipidemia Father , KIDNEY FAILURE at age 60. Essential hypertension Heart disease Hyperlipidemia Maternal Grandfather No problems noted. Paternal Grandfather No problems noted. Maternal Grandmother Diabetes Paternal Grandmother No problems noted. Social History Smoking/Tobacco Use Status: Former Tobacco Use Quit Date: 04/25/84 Smoking risk assessment performed?: Yes Drug use: Never Substance use type: does not use Caregiver/Support person: No Household members: none Housing: house Communication Needs: Hard of Hearing and Corrective Lenses Do you need help understanding health information?: Never Pets and animals: Yes Pets and animals: dog(s) Sexually active: No Do you think of yourself as: straight/heterosexual Current gender identity: female What is your relationship status?: never How often do you talk on the phone with friends or family?: once per week How often do you get together with friends or relatives?: decline to answer Do you belong to any clubs or organized social groups?: no Panel score (0-1 are the most socially isolated patients): 0 What type of physical activity do you participate in: none Kia/Restorationism: Rastafarian Seatbelt use: always Helmet use: No Drive intox or ride w/intox cement mixer driver: No Do you feel safe at home: Yes Victim of physical abuse: No Victim of emotional abuse: No Victim of sexual abuse: No Would you like helpful sources: No Female Reproductive History Menstrual Age of Menarche: 10 control method: none Menopause type: natural History History 0 Para Hx # Term Pregnancies Multiple births Hx # Pregnancies Ectopic pregnancies AB induced Hx Number of Living Children AB spontaneous Meds Allergies and Home Medications Allergies Allergy/AdvReac Type Severity Reaction Status Date / Time bupropion HCl AdvReac Intermediate tremors Verified 07/01/22 10:18 [From Wellbutrin] Home Medications Medication Instructions Recorded Confirmed Type atorvastatin 40 mg tablet 40 mg PO HS #90 tab-caps 12/16/21 07/01/22 Rx lisinopril 10 1 tab PO DAILY #90 tabs 02/10/22 07/01/22 Rx mg-hydrochlorothiazide 12.5 mg tablet atenolol 25 mg tablet 25 mg PO DAILY #90 tabs 03/09/22 07/01/22 Rx levothyroxine 200 mcg tablet 200 mcg PO DAILY #90 tab-caps 03/09/22 07/01/22 Rx loperamide 2 mg capsule 2 mg PO Q6H PRN loose stool #30 03/13/22 07/01/22 Rx caps gabapentin 300 mg capsule 600 mg PO BID PRN 05/13/22 06/21/22 History mirabegron 25 mg tablet,extended 25 mg PO DAILY #90 tabs 05/24/22 07/01/22 Rx release 24 hr (Myrbetriq) tramadol 50 mg tablet 25 - 50 mg PO Q8H PRN pain #30 tabs 06/08/22 07/01/22 Rx tramadol 50 mg tablet 50 mg PO Q6H PRN #10 tabs 06/08/22 06/21/22 Rx ondansetron HCl 4 mg tablet 4 mg PO Q6H PRN nausea and 06/10/22 07/01/22 Rx vomiting #20 tabs megestrol 400 mg/10 mL (40 mg/mL) 400 mg (10 mL) PO DAILY appetite 06/11/22 07/01/22 Rx oral suspension stimulant 30 days #480 mL lorazepam 1 mg tablet (Ativan) 0.5 mg PO DAILY PRN anxiety #10 06/17/22 07/01/22 Rx tabs tramadol 100 mg tablet 100 mg PO Q6H PRN pain #20 tabs 06/18/22 07/01/22 Rx Results Labs 07/02/22 06:15 07/02/22 06:15 Labs: Laboratory Results - last 24 hr 07/02/22 07/02/22 07/02/22 06:15 06:15 Unknown WBC 10.99 H RBC 3.34 L Hgb 9.5 L Hct 28.4 L MCV 85 MCH 28.4 MCHC 33.5 RDW 13.7 Plt Count 129 L MPV 10.1 Sodium 137 Potassium 4.4 D Chloride 103 Carbon Dioxide 22.6 Anion Gap 11.4 H BUN 33 H Creatinine 2.8 H Est GFR (CKD-EPI 2020) 17.18 Glucose 118 H Calcium 8.6 Magnesium 3.1 H Add-On Test Request DONE Last Vital Signs Temp 35.9 C L 07/02/22 15:32 Pulse 77 07/02/22 15:32 Resp 16 07/02/22 15:32 BP 123/66 07/02/22 15:32 Pulse Ox 96 07/02/22 15:32
--- NOTE | 2022-07-02 17:42 | PGE_ITS ---
Date of Service Date of service: 07/02/22 Time of Service: 17:42 Assessment and Plan Assessment and plan (1) Acute UTI: Status: Acute Assessment and plan: WBC count improved; nearly normalized. Rocephin initiated in the ED. Cont Rocephin 1gram IV daily. Urine culture growing gram neg alexandra (2) Endometrial ca: Status: Acute Assessment and plan: With omental and diaphragm metastasis. 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 Cytology show the cell line to be consistent with her previous endometrial CA 11-12 years prior. S/P visist on 06/[address] Jim; discussed findings on paracentesis. She had an appt scheduled for day of this admission with Dr Vicente[place] [facility] [place] was unable to attend d/t significant symptoms secondary to UTI; confusion/feeling off, malaise/fatigue. Discussed with Dr Vicente. He will discuss chemotx option when pt able to reschedule. (3) Omental metastasis: Status: Acute Assessment and plan: As above. (4) Ascites, malignant: Status: Acute Assessment and plan: As above. Dr Jim, surgery, consulted and plans paracentesis. Will hold apixiban and start heparin so the procedure can occur tomorrow. (5) Chronic kidney disease with symptom management only, stage 4 (severe): Status: Acute Assessment and plan: Creatinine has been increase since last year. Creatinine on admission 2.8. 2.8 again today. Monitor. (6) Hypothyroidism: Assessment and plan: Cont her usual replacement dosing. (7) Hypertension: Assessment and plan: SBP since arrival to [facility] have been low: 70's to low 100's. BP has now improved. Cont daily atenolol with parameters to hold. (8) Hyperlipidemia: Assessment and plan: Cont atorvastatin. (9) Discharge planning issues: Status: Acute Assessment and plan: DNR/DNI. Palliative care consult appreciated. D/T her significant weakness, planning to d/c to SNF; [facility] (she retired from the [employer] appx 1 month ago). Her weakness will hopefully improve enough so she is able to meet with her oncologist. If not, will see if a telehealth visit could be arranged. She would like to make an informed decision on how to proceed with her care once she knows what input Dr Vicente, oncologist, has. (10) Acute DVT (deep venous thrombosis): Status: Acute Subjective Subjective Patient reports: no new complaints, tolerating a regular diet, no bowel movement (small BM yesterday, 07/01.), nausea and afebrile; denies diarrhea or shortness of breath Exam Narrative Exam Narrative: Patient is lying supine. Pleasant and interactive. Const General: cooperative and no acute distress Nutritional Appearance: obese Orientation: alert and oriented x3 HENMT Head: normocephalic and atraumatic Ears: hearing grossly normal bilaterally Eyes General: appearance normal, both eyes and all related structures Sclera: sclerae normal Resp Effort & Inspection: normal respiratory effort Auscultation: clear to auscultation bilaterally Cardio Rate: regular rate Rhythm: regular rhythm GI Inspection: obesity Palpation: soft, tender (diffuse, mild) and ascites Auscultation: normal bowel sounds Skin General skin exam: no rashes or lesions noted Neuro General: no focal motor deficits Cranial Nerves: facial strength normal Cognition: normal cognition Speech: speech normal Extrem General: edema Laterality: left (Nonpitting.) Left lower extremity: abnormal to inspection (faint dusky discoloration below the knee with swelling. Nontender.) Psych Appearance: grossly normal Mental Status: mental status grossly normal Speech and Movement: speech and movement normal Affect: normal affect Objective Last Vital Signs Temp 35.9 C L 07/02/22 15:32 Pulse 77 07/02/22 15:32 Resp 16 07/02/22 15:32 BP 123/66 07/02/22 15:32 Pulse Ox 96 07/02/22 15:32 Laboratory Results - last 24 hr 07/02/22 07/02/22 07/02/22 06:15 06:15 Unknown WBC 10.99 H RBC 3.34 L Hgb 9.5 L Hct 28.4 L MCV 85 MCH 28.4 MCHC 33.5 RDW 13.7 Plt Count 129 L MPV 10.1 Sodium 137 Potassium 4.4 D Chloride 103 Carbon Dioxide 22.6 Anion Gap 11.4 H BUN 33 H Creatinine 2.8 H Est GFR (CKD-EPI 2020) 17.18 Glucose 118 H Calcium 8.6 Magnesium 3.1 H Add-On Test Request DONE Time Spent with Patient Time Spent with Patient: 25-34 minutes Time was spent: preparing to see the patient(eg.review tests), ordering medications,tests, procedures, referring, communicating with other health geriatric care manager and counseling the patient
[2022-07-02] MEDS: Senna TAB 1 TAB PO (19:58)
[2022-07-02] MEDS: Mirtazapine 15 MG TAB 7.5 MG PO (21:30)
[2022-07-02] MEDS: Atorvastatin 40 MG TAB PO (21:30)
--- NOTE | 2022-07-02 21:50 | PGE_ITS ---
Date of Service Date of service: 07/02/22 Time of Service: 17:30 Assessment and Plan Assessment and plan (1) Acute DVT (deep venous thrombosis): Status: Acute (2) Acute UTI: Status: Acute (3) General weakness: Status: Acute (4) AMS (altered mental status): Status: Acute (5) Omental metastasis: Status: Acute (6) Endometrial ca: Status: Acute (7) Ascites, malignant: Status: Acute (8) Unexplained weight loss: Status: Acute (9) N&V (nausea and vomiting): Status: Acute (10) Protein-calorie malnutrition, mild: Status: Acute (11) Hypoalbuminemia due to protein-calorie malnutrition: Status: Acute (12) Chronic kidney disease with symptom management only, stage 4 (severe): Status: Acute (13) Elevated creatine kinase: Status: Acute (14) Peritoneal metastases: Status: Acute (15) Abdominal pain: Status: Acute Subjective Subjective Interval history since last seen: Assessment and plan (1) Acute DVT (deep venous thrombosis): ?Status:?Acute ? ? ? Assessment and plan: Heparin drip per hospitalist (2) Ascites, malignant: ?Status:?Acute ? ? ? Assessment and plan: Plan on paracentesis in a.m. for supportive care. (3) Malignant neoplasm of uterus: (4) Acute UTI: ?Status:?Acute (5) General weakness: ?Status:?Acute (6) AMS (altered mental status): ?Status:?Acute (7) Omental metastasis: ?Status:?Acute (8) Endometrial ca: ?Status:?Acute (9) Unexplained weight loss: ?Status:?Acute (10) N&V (nausea and vomiting): ?Status:?Acute (11) Protein-calorie malnutrition, mild: ?Status:?Acute (12) Hypoalbuminemia due to protein-calorie malnutrition: ?Status:?Acute (13) Chronic kidney disease with symptom management only, stage 4 (severe): ?Status:?Acute (14) Elevated creatine kinase: ?Status:?Acute (15) Peritoneal metastases: ?Status:?Acute (16) Abdominal pain: ?Status:?Acute (17) Gastroesophageal reflux disease with esophagitis: (18) Hyperlipidemia: (19) Hypertension: (20) Hypothyroidism: (21) Impaired fasting glucose: (22) Morbid obesity: (23) Obstructive sleep apnea syndrome: (24) Peripheral neuropathy: (25) Renal insufficiency: Patient is well-known to the surgical service.? She has carcinomatosis.? She had a previous paracentesis and cytology done that shows an adenocarcinoma consistent with her previous endometrial carcinoma cell type. CT of the abdomen and pelvis has been done.? I did review her case with IR at [facility] [place] There is nothing that they can biopsy.? They did recommend doing an MRI.? This is still pending.? A PET scan is also pending.? She does have a consult with oncology pd. Today patient is being admitted with dehydration, acute UTI, and a DVT.? She will be started on heparin. ? we will plan on doing a paracentesis in a.m. Risk versus benefits including bleeding infection, continuous drainage, complications from local anesthetics, and damage to bowel or blood vessels. Patient is uncomfortable but does not have peritonitis.? At this point I think it is more important that we address her acute DVT. She was started on heparin drip by the hospitalist service. We can stop this and do paracentesis as needed. I did stop by to see the patient tonight. She is finally able to Have pain relief and able to sleep. I did not wake her up. I did discuss the case with Dr. Holman is the surgeon on-call for the weekend. We will do paracentesis as needed Full surgical consult to follow in a.m. Objective Last Vital Signs Temp 35.9 C L 07/02/22 15:32 Pulse 77 07/02/22 15:32 Resp 16 07/02/22 15:32 BP 123/66 07/02/22 15:32 Pulse Ox 96 07/02/22 15:32 Laboratory Results - last 24 hr 07/02/22 07/02/22 07/02/22 06:15 06:15 Unknown WBC 10.99 H RBC 3.34 L Hgb 9.5 L Hct 28.4 L MCV 85 MCH 28.4 MCHC 33.5 RDW 13.7 Plt Count 129 L MPV 10.1 Sodium 137 Potassium 4.4 D Chloride 103 Carbon Dioxide 22.6 Anion Gap 11.4 H BUN 33 H Creatinine 2.8 H Est GFR (CKD-EPI 2020) 17.18 Glucose 118 H Calcium 8.6 Magnesium 3.1 H Add-On Test Request DONE Time Spent with Patient Time Spent with Patient: <25 minutes Time was spent: obtaining and/or reviewing separately otained hiistory, ordering medications,tests, procedures, referring, communicating with other health client care manager, indepentently interpreting results and care coordination
[2022-07-02 22:40] VITALS: BP 121/69; PULSE 81; RESP 17; TEMP 36; O2SAT 96
[2022-07-02 23:46] LABS: PTT Activated 30.3 sec (21.5-31.9)
[2022-07-03] MEDS: Levothyroxine 200 MCG TAB PO (06:12)
[2022-07-03 06:42] LABS: Abs Immature Grans 0.14 10^3/uL (0.0-0.06); Absolute Basophil Count 0.02 10^3/uL (0.0-0.2); Absolute Eosinophil Count 0.08 10^3/uL (0.0-0.7); Absolute Monocyte Count 0.63 10^3/uL (0.1-0.8); Absolute Neutrophil Count 6.65 10^3/uL (1.2-6.7); Basophils % 0.2; Eosinophils % 0.9; HCT 26.4 % (36.0-46.0); HGB 8.7 g/dL (11.2-15.7); Immature Grans % 1.6; Lymphocytes % 14.7; MCH 27.6 pg (27.0-33.0); MCV 84 fL (80-95); MPV 10.3 fL (8.0-11.0); Monocytes % 7.1; Neutrophils % 75.5; Platelet Count 142 10^3/uL (130-400); RBC 3.15 10^6/uL (3.93-5.22); RDW 13.6 % (11.7-14.6); RDW-SD 41.7 fL; WBC 8.82 10^3/uL (4.4-10.8)
[2022-07-03 06:52] LABS: Anion Gap 8.6 mmol/L (3-11); BUN 32 mg/dL (7-18); CO2 25.4 mmol/L (21.0-32.0); CREATININE 2.3 mg/dL (0.55-1.02); Calcium 8.3 mg/dL (8.5-10.1); Chloride 104 mmol/L (98-107); Estimated GFR 21.76 (mL/min/1.73m2); Glucose 97 mg/dL (74-106); Potassium 3.5 mmol/L (3.5-5.1); Sodium 138 mmol/L (136-145)
[2022-07-03 07:25] LABS: Diff Comment Diff Reviewed
[2022-07-03 07:26] LABS: Hypochromasia 1+
[2022-07-03] MEDS: Atenolol 25 MG TAB PO (07:36)
[2022-07-03] MEDS: Docusate Sodium 100 MG CAP PO (07:36)
[2022-07-03] MEDS: LORazepam 0.5 MG TAB PO ×2 (07:36→21:19)
[2022-07-03] MEDS: Polyethylene Glycol 3350 17 GM PACKET PO (07:37)
[2022-07-03] MEDS: Senna TAB 1 TAB PO (07:38)
[2022-07-03] MEDS: cefTRIAXone 1 GM/50 ML BAG IVPB (07:40)
[2022-07-03] MEDS: Normal Saline 500 ML 30 ML IV (07:41)
[2022-07-03 07:54] VITALS: BP 101/65; PULSE 80; RESP 16; TEMP 36.6; O2SAT 92
--- NOTE | 2022-07-03 10:23 | PT.INIE ---
Date of service: 07/03/22 Time of Service: 09:50 PT Notes Visit Reasons: UTI, Metastatic Endometrial Cancer,FTT Inpatient Physical Therapy Evaluation Date: July 03, 2022 Referring Doctor: Keith Broderick PT Orders: PT CONSULT Precautions: Standard, Fall Patient Profile/Admitting Diagnosis: Erica is a 72 year old female admitted via the ED secondary to acute UTI, Metastatic endometrial cancer, FTT. PMHX: (Updated 07/02/22 @ 07:04 by Keith Broderick MD) Discharge planning issues (Acute) Acute UTI (Acute) General weakness (Acute) AMS (altered mental status) (Acute) Omental metastasis (Acute) Endometrial ca (Acute) Ascites, malignant (Acute) Unexplained weight loss (Acute) N&V (nausea and vomiting) (Acute) Protein-calorie malnutrition, mild (Acute) Hypoalbuminemia due to protein-calorie malnutrition (Acute) Chronic kidney disease with symptom management only, stage 4 (severe) (Acute) Elevated creatine kinase (Acute) Peritoneal metastases (Acute) Abdominal pain (Acute) Medical History? Acne Carpal tunnel syndrome Chronic diarrhea Depressive disorder Diabetes mellitus (05/31/14) Edema Gastroesophageal reflux disease with esophagitis Herpes zoster (02/29/08) Hyperlipidemia (10/19/12) Hypertension better w/ current medsHypothyroidism (10/19/12) Impaired fasting glucose (07/14/15) Malignant neoplasm of uterus (07/02/11) endometrial cancer (focal grade 3) [place] [facility] [place] Morbid obesity Obstructive sleep apnea syndrome [facility] [place] (pt stopped CPAP in 2010, re-start 2014 [facility] sleep lab) Peripheral neuropathy leg numbness and unstable gait due th chemo Renal insufficiency [facility] [place] Renal insufficiency Sensorineural hearing loss of both ears Vertigo (02/29/08) Vitamin B 12 deficiency (05/31/14) Vitamin D deficiency (07/14/15) Surgical History? [place] - [facility] [place]12[place] [facility] [place] of [place] (R) eye; DR. ECKERT 10/31/17 (L) eye; Dr. AmadorASTRIC STAPLING w/ esoph rupture and abcess History of gastric stapling [place] [facility] [place] Open Carpal Tunnel release B/LStatus post carpal tunnel release Social History/Home Situation: Lives alone in a private home 1 level living. Has not had running water in quite some time. Utilizes a walker for all ambulation due to generalized weakness and balance. Current Functional Limitations: Decreased activity tolerance, limited walking tolerance, limited transfers, sponge bathing at home only for has not had running water in a few months. Limited meals for has no appetite- meals consist of crackers and ayana aileen. Is independent in driving prior to hospital admission. 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 She is unsure when she stopped working however believes it was the end of Mar. Equipment Owned/DME: walker Subjective: Erica Skinner agreeable to PT consult this morning. Feeling overall better however knows that she needs some help. Has been very deconditioned for the past couple of months and can not do it on her own anymore. Having some increased abdominal pain and nausea secondary to not having a bowel movement in days. Objective: General Observation: IV R UE Mental Status: Alert and oriented x3 Pain: Declines any pain other than abdominal discomfort for has not had a bowel movement in days. ROM: Right Upper Extremity: Demonstrates WFL AA R UE ROM Left Upper Extremity: Demonstrates WFL AA L UE ROM Right Lower Extremity: Hip flexion 100 degrees, knee flexion 105 degrees, knee extension 5, DF neutral Left Lower Extremity: Hip flexion 100 degrees, knee flexion 110 degrees, knee extension 0, DF neutral Strength: Right Upper Extremity: Demonstrates grossly 4/5 R UE strength with exception of ER 3+/5 Left Upper Extremity: Demonstrates grossly 4/5 L UE strength with exception of ER 4-/5 Right Lower Extremity: Hip flexion 4-/5, knee extension 4/5, knee flexion 4-/5, DF 4-/5 Left Lower Extremity: Independent SLR. Bed Mobility/Transfers: Supine to sit: Supervision Sit to supine: Supervision Sit to stand: minAx1 with FWW Stand to sit: minAx1 with FWW Bed to commode: minAx1 with FWW Gait: Able to walk to bedside commode with minAx1 with FWW, FWB B LE Balance: Static Sitting: Normal Dynamic Sitting: Good Static Standing: Fair Dynamic Standing: Poor Special Tests: Mobility Limitations Standardized Measure [facility] AM-PAC 6 clicks Basic Mobility Inpatient Short Form: Raw Score:19 CMS Score: 42% Informed Consent/Education: Patient instructed in purpose of PT consult and plan of care. Assessment: Patient is a 72 year old female referred to physical therapy services with the diagnosis of acute UTI, endometrial cancer and L LE DVT. Patient presents with clinical signs and symptoms consistent with diagnosis, as demonstrated by the following impairment level findings: impaired motor function, muscle performance with limited ability to transfer, increased SOB with activities, and altered gait and balance requiring assistance for all functional transfers. Impairments are contributing to the following functional limitations:decreased activity tolerance, global weakness, unsteady gait/balance, SOB with exertion Patient is assessed as a Moderate 94660 complexity based on the following: History: As above Examination: As above Presentation: Evolving Decision Making: Moderate Goals: Goals X1 week 1. Supine-Sit Independent 2. Sit-Supine Independent 3. Sit-Stand Supervision with FWW 4. Stand-Sit Supervision 5. Bed-Chair Supervision with FWW 6. Chair-Bed Supervision with FWW 7. Gait Supervision with FWW 100 ft or greater Plan of Care/Treatment Plan: 1-2x/day, 7 days/week x 1 week. Plan of care has been reviewed with the C[employer] MIDWIFE providing the service under Physical Therapy direction. Initiate Physical Therapy intervention for strengthening, bed mobility, transfers, gait, stairs, balance training, use of assistive device. DISCHARGE RECOMMENDATIONS: SNF for continued rehabilitation due to general weakness and deconditioning TREATMENT CODE/TIME: 95425, IE, 25 minutes,9:50 am-10:15 am SONIDO Aguilar [facility] Disclaimer: This note was created using [employer] voice recognition software. It was reviewed for major content. However, there may be multiple small discrepancies and errors due to the voice recognition aspects of the software.
[2022-07-03] MEDS: Normal Saline Flush 10 ML SYR IVP (12:36)
[2022-07-03 15:19] VITALS: BP 100/61; PULSE 76; RESP 17; TEMP 37.4; O2SAT 96
--- NOTE | 2022-07-03 16:04 | PGE_ITS ---
Date of Service Date of service: 07/03/22 Time of Service: 16:04 Assessment and Plan Assessment and plan (1) Acute UTI: Status: Acute Assessment and plan: WBC count improved; nearly normalized. Rocephin initiated in the ED. Rocephin 1gram IV daily (dose #3). Culture growing proteus mirabilis. Will stop antibiotic; afebrile, WBC count normal, asymptomatic. (2) Endometrial ca: Status: Acute Assessment and plan: With omental and diaphragm metastasis. 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 Cytology show the cell line to be consistent with her previous endometrial CA 11-12 years prior. S/P visist on 06/[address] Jim; discussed findings on paracentesis. She had an appt scheduled for day of this admission with Dr Vicente, oncologist at [facility] [place]. She was unable to attend d/t significant symptoms secondary to UTI; confusion/feeling off, malaise/fatigue. Discussed with Dr Vicente. He will discuss chemotx option when pt able to reschedule. (3) Omental metastasis: Status: Acute Assessment and plan: As above. (4) Ascites, malignant: Status: Acute Assessment and plan: As above. Dr Jim, surgery, consulted and plans paracentesis. Will hold apixiban and start heparin so the procedure can occur tomorrow. (5) Chronic kidney disease with symptom management only, stage 4 (severe): Status: Acute Assessment and plan: Creatinine has been increase since last year. Creatinine on admission 2.8. Now 2.3. Monitor. (6) Hypothyroidism: Assessment and plan: Cont her usual replacement dosing. (7) Hypertension: Assessment and plan: SBP since arrival to [facility] have been low: 70's to low 100's. BP has now improved. Cont daily atenolol with parameters to hold. (8) Hyperlipidemia: Assessment and plan: Cont atorvastatin. (9) Discharge planning issues: Status: Acute Assessment and plan: DNR/DNI. Palliative care consult appreciated. D/T her significant weakness, planning to d/c to SNF; [employer] (she retired from the [employer] appx 1 month ago). Her weakness will hopefully improve enough so she is able to meet with her oncologist. If not, will see if a telehealth visit could be arranged. She would like to make an informed decision on how to proceed with her care once she knows what input Dr Vicente, oncologist, has. (10) Acute DVT (deep venous thrombosis): Status: Acute Subjective Subjective Patient reports: no new complaints, bowel movement, nausea and afebrile; denies vomiting or shortness of breath Exam Narrative Exam Narrative: Patient is lying in bed. Pleasant and interactive. Const General: cooperative and no acute distress Nutritional Appearance: obese Orientation: alert and oriented x3 HENMT Head: normocephalic and atraumatic Ears: hearing grossly normal bilaterally Eyes General: appearance normal, both eyes and all related structures Sclera: sclerae normal Resp Effort & Inspection: normal respiratory effort Auscultation: clear to auscultation bilaterally Cardio Rate: regular rate Rhythm: regular rhythm GI Inspection: obesity Palpation: soft, tender (diffuse, mild) and ascites Auscultation: normal bowel sounds Skin General skin exam: no rashes or lesions noted Neuro General: no focal motor deficits Cranial Nerves: facial strength normal Cognition: normal cognition Speech: speech normal Extrem General: edema Laterality: left (Nonpitting.) Left lower extremity: abnormal to inspection (faint dusky discoloration below the knee with swelling. Nontender.) Psych Appearance: grossly normal Mental Status: mental status grossly normal Speech and Movement: speech and movement normal Affect: normal affect Objective Last Vital Signs Temp 37.4 C 07/03/22 15:19 Pulse 76 07/03/22 15:19 Resp 17 07/03/22 15:19 BP 100/61 07/03/22 15:19 Pulse Ox 96 07/03/22 15:19 Laboratory Results - last 24 hr 07/01/22 07/02/22 07/03/22 15:45 23:22 06:05 WBC RBC Hgb Hct MCV MCH MCHC RDW Plt Count MPV Immature Gran % Neutrophils % Lymphocytes % Monocytes % Eosinophils % Basophils % Nucleated RBC % Absolute Neutrophils Absolute Lymphocytes Absolute Monocytes Absolute Eosinophils Absolute Basophils RBC Morphology Hypochromasia APTT 30.3 Cancelled Sodium Potassium Chloride Carbon Dioxide Anion Gap BUN Creatinine Est GFR (CKD-EPI 2020) Glucose Calcium Urine Color Yellow Urine Clarity Cloudy Urine pH 5.5 Ur Specific Stanton >= 1.030 H Urine Protein 100 H Urine Ketones Trace H Urine Blood Small H Urine Nitrite Positive H Urine Bilirubin Moderate H Urine Urobilinogen 1.0 H Ur Leukocyte Esterase Small H Urine RBC 3-5 H Urine WBC 10-20 H Ur Epithelial Cells Rare Urine Crystals Negative Urine Bacteria Moderate Urine Casts 0-2 Hyaline Urine Mucus Trace Ur Culture Indicated? Yes Urine Glucose 100 H 07/03/22 07/03/22 07/03/22 06:05 06:05 08:23 WBC 8.82 RBC 3.15 L Hgb 8.7 L Hct 26.4 L MCV 84 MCH 27.6 MCHC 33.0 RDW 13.6 Plt Count 142 MPV 10.3 Immature Gran % 1.6 Neutrophils % 75.5 Lymphocytes % 14.7 Monocytes % 7.1 Eosinophils % 0.9 Basophils % 0.2 Nucleated RBC % 0.0 Absolute Neutrophils 6.65 Absolute Lymphocytes 1.30 Absolute Monocytes 0.63 Absolute Eosinophils 0.08 Absolute Basophils 0.02 RBC Morphology See Below Hypochromasia 1+ APTT Sodium 138 Potassium 3.5 Chloride 104 Carbon Dioxide 25.4 Anion Gap 8.6 BUN 32 H Creatinine 2.3 H Est GFR (CKD-EPI 2020) 21.76 Glucose 97 Calcium 8.3 L Urine Color Urine Clarity Urine pH Ur Specific Stanton Urine Protein Urine Ketones Urine Blood Urine Nitrite Urine Bilirubin Urine Urobilinogen Ur Leukocyte Esterase Urine RBC Urine WBC Ur Epithelial Cells Urine Crystals Urine Bacteria Urine Casts Urine Mucus Ur Culture Indicated? Urine Glucose Time Spent with Patient Time Spent with Patient: 25-34 minutes Time was spent: preparing to see the patient(eg.review tests), ordering medications,tests, procedures, indepentently interpreting results and care coordination
--- NOTE | 2022-07-03 17:06 | W.PM.PROGNOT ---
Date of Service Date of service: 07/03/22 Time of Service: 11:30 Assessment and Plan Assessment and plan (1) Ascites, malignant: Status: Acute Assessment and plan: 72 yo woman with carcinomatosis causing malignant ascites. I used an ultrasound at bedside to show her abdominal cavity contents to her. As suspected clinically, there is no signifcant amount of ascites. Some is present, but the amount/volume is not even moderate and I do not think there is anything worth draining. Her discomfort is related to the intraperitoneal tumor burden and I had a detailed discussion with her about this. She understands and agrees. The last paracentesis done only yielded about 1.5L of fluid which really didn't provide much relief for her overall and she understands that the amount inside of her now is probably that same amount. Overall: She needs to get her oncology consultation and recommendations. Palliative chemotherpay may play a role in her management. Surgery is not something that will help her at this point. Surgery signing off. Call us back as needed. Subjective Subjective Interval history since last seen: No new events. Patient wanted to discuss another paracentesis. She has a lot of abdominal pressure. Exam Narrative Exam Narrative: Abdomen: Soft, no distention at all. No fluid wave. Tenderness somewhat diffusely. Objective Last Vital Signs Temp 99.3 F 07/03/22 15:19 Pulse 76 07/03/22 15:19 Resp 17 07/03/22 15:19 BP 100/61 07/03/22 15:19 Pulse Ox 96 07/03/22 15:19 Laboratory Results - last 24 hr 07/01/22 07/02/22 07/03/22 15:45 23:22 06:05 WBC RBC Hgb Hct MCV MCH MCHC RDW Plt Count MPV Immature Gran % Neutrophils % Lymphocytes % Monocytes % Eosinophils % Basophils % Nucleated RBC % Absolute Neutrophils Absolute Lymphocytes Absolute Monocytes Absolute Eosinophils Absolute Basophils RBC Morphology Hypochromasia APTT 30.3 Cancelled Sodium Potassium Chloride Carbon Dioxide Anion Gap BUN Creatinine Est GFR (CKD-EPI 2020) Glucose Calcium Urine Color Yellow Urine Clarity Cloudy Urine pH 5.5 Ur Specific [place] >= 1.030 H Urine Protein 100 H Urine Ketones Trace H Urine Blood Small H Urine Nitrite Positive H Urine Bilirubin Moderate H Urine Urobilinogen 1.0 H Ur Leukocyte Esterase Small H Urine RBC 3-5 H Urine WBC 10-20 H Ur Epithelial Cells Rare Urine Crystals Negative Urine Bacteria Moderate Urine Casts 0-2 Hyaline Urine Mucus Trace Ur Culture Indicated? Yes Urine Glucose 100 H 07/03/22 07/03/22 07/03/22 06:05 06:05 08:23 WBC 8.82 RBC 3.15 L Hgb 8.7 L Hct 26.4 L MCV 84 MCH 27.6 MCHC 33.0 RDW 13.6 Plt Count 142 MPV 10.3 Immature Gran % 1.6 Neutrophils % 75.5 Lymphocytes % 14.7 Monocytes % 7.1 Eosinophils % 0.9 Basophils % 0.2 Nucleated RBC % 0.0 Absolute Neutrophils 6.65 Absolute Lymphocytes 1.30 Absolute Monocytes 0.63 Absolute Eosinophils 0.08 Absolute Basophils 0.02 RBC Morphology See Below Hypochromasia 1+ APTT Sodium 138 Potassium 3.5 Chloride 104 Carbon Dioxide 25.4 Anion Gap 8.6 BUN 32 H Creatinine 2.3 H Est GFR (CKD-EPI 2020) 21.76 Glucose 97 Calcium 8.3 L Urine Color Urine Clarity Urine pH Ur Specific [place] Urine Protein Urine Ketones Urine Blood Urine Nitrite Urine Bilirubin Urine Urobilinogen Ur Leukocyte Esterase Urine RBC Urine WBC Ur Epithelial Cells Urine Crystals Urine Bacteria Urine Casts Urine Mucus Ur Culture Indicated? Urine Glucose Time Spent with Patient Time Spent with Patient: 35-49 minutes Time was spent: counseling the patient
[2022-07-03] MEDS: Apixaban 5 MG TAB 10 MG PO (17:31)
[2022-07-03] MEDS: Atorvastatin 40 MG TAB PO (21:18)
[2022-07-03] MEDS: Mirtazapine 15 MG TAB 7.5 MG PO (21:24)
[2022-07-04 04:13] VITALS: BP 140/86; PULSE 68; RESP 16; O2SAT 96
[2022-07-04] MEDS: Apixaban 5 MG TAB 10 MG PO ×2 (05:39→17:53)
[2022-07-04] MEDS: Levothyroxine 200 MCG TAB PO (05:39)
[2022-07-04 07:26] VITALS: BP 98/64; PULSE 73; RESP 17; TEMP 36.3; O2SAT 96
[2022-07-04 07:28] VITALS: BP 110/40
[2022-07-04] MEDS: LORazepam 0.5 MG TAB PO ×2 (09:43→20:41)
[2022-07-04] MEDS: Atenolol 25 MG TAB PO (09:44)
[2022-07-04 09:45] VITALS: BP 106/40
[2022-07-04] MEDS: Normal Saline Flush 10 ML SYR IVP ×2 (09:53→17:53)
--- NOTE | 2022-07-04 10:37 | PT.INTREAT ---
Date of service: 07/04/22 Time of Service: 10:00 PT Notes Visit Reasons: UTI, Metastatic Endometrial Cancer,FTT Inpatient Physical Therapy Treatment Note See [facility] Date: 07/04/2022 PRECAUTIONS: Precautions: Standard, Fall SUBJECTIVE: Stated she was agreeable to getting up to the chair, but after standing to have weight taken and having buttock wiped she became very weak and needed to lay down. OBJECTIVE: PAIN: Unable to have gait belt tightened due to abdominal discomfort. BED MOBILITY/TRANSFERS Rolling L/R: Rolling to right and left independently Supine-sit: mod assist of one Sit-supine: min assist of one Sit-stand: min assist of two, pulling herself upon to scales from edge of bed Stand-sit: min assist of two, but unable to pull her buttock back onto bed all the way without assist GAIT Held on ambulation due to becoming very weak with standing on weight scales. THEREX: Performed ankle pumps, UE shoulder flexion, UE shoulder horizontal abd /adduction, hand squeezes, right hip ER while in left side lying for 10 reps each ASSESSMENT: Fatigues quickly, legs are very weak. Does agree to try to do activity, but has difficulty following through due to limited endurance. PLAN: Continue to work on transfers, strengthening and ambulation for improved ADL function, as patient is able to tolerate. TREATMENT CODE/TIME: [id number], 10:00 to 10:20 (20')
[2022-07-04 15:07] VITALS: BP 102/60; PULSE 76; RESP 16; TEMP 37.6; O2SAT 96
--- NOTE | 2022-07-04 15:12 | PGE_ITS ---
Date of Service Date of service: 07/04/22 Time of Service: 15:13 Assessment and Plan Assessment and plan (1) Acute UTI: Status: Acute Assessment and plan: Rocephin initiated in the ED. Rocephin 1gram IV daily (dose #3/3). Culture growing proteus mirabilis. Afebrile, WBC count normal, asymptomatic. (2) Endometrial ca: Status: Acute Assessment and plan: With omental and diaphragm metastasis. 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 Cytology show the cell line to be consistent with her previous endometrial CA 11-12 years prior. S/P visist on 06/[address] Jim; discussed findings on paracentesis. She had an appt scheduled for day of this admission with Dr Vicente, oncologist at [facility] [place]. She was unable to attend d/t significant symptoms secondary to UTI; confusion/feeling off, malaise/fatigue. Discussed with Dr Vicente. He will discuss chemotx option when pt able to reschedule. Attempt to arrange telehealth visit with Dr Vicente. It appears that patient may not ever gain enough strength to have an in person visit at [facility] [place]. (3) Omental metastasis: Status: Acute Assessment and plan: As above. (4) Ascites, malignant: Status: Acute Assessment and plan: As above. Dr. Archer evaluated patient for a possible paracentesis but there was not adequate fluid in a single space to warrant the procedure. (5) Chronic kidney disease with symptom management only, stage 4 (severe): Status: Acute Assessment and plan: Creatinine has been increase since last year. Creatinine on admission 2.8. Now 2.3. Monitor. (6) Hypothyroidism: Assessment and plan: Cont her usual replacement dosing. (7) Hypertension: Assessment and plan: SBP since arrival to [facility] have been low: 70's to low 100's. BP has now improved. Cont daily atenolol with parameters to hold. (8) Hyperlipidemia: Assessment and plan: Cont atorvastatin. (9) Discharge planning issues: Status: Acute Assessment and plan: DNR/DNI. Palliative care consult appreciated. D/T her significant weakness, planning to d/c to SNF; [employer] (she retired from the [employer] appx 1 month ago). Her weakness will hopefully improve enough so she is able to meet with her oncologist. If not, will see if a telehealth visit could be arranged. She would like to make an informed decision on how to proceed with her care once she knows what input Dr Vicente, oncologist, has to offer. (10) Acute DVT (deep venous thrombosis): Status: Acute Subjective Subjective Patient reports: no new complaints, pain is less (abd fullness/discomfort mar ginally better) and afebrile; denies nausea, vomiting or shortness of breath Interval history since last seen: Still generally weak. Exam Narrative Exam Narrative: Patient is lying in bed. Pleasant and interactive. Const General: cooperative, no acute distress and frail appearing Nutritional Appearance: obese Orientation: alert and oriented x3 HENMT Head: normocephalic and atraumatic Ears: hearing grossly normal bilaterally Eyes General: appearance normal, both eyes and all related structures Sclera: sclerae normal Resp Effort & Inspection: normal respiratory effort Auscultation: clear to auscultation bilaterally Cardio Rate: regular rate Rhythm: regular rhythm GI Inspection: obesity Palpation: soft and tender (diffuse, mild) Auscultation: normal bowel sounds Skin General skin exam: no rashes or lesions noted Neuro General: no focal motor deficits Cranial Nerves: facial strength normal Cognition: normal cognition Speech: speech normal Extrem General: edema Laterality: left (Nonpitting.) Left lower extremity: abnormal to inspection (faint dusky discoloration below the knee with swelling. Nontender.) Psych Appearance: grossly normal Mental Status: mental status grossly normal Speech and Movement: speech and movement normal Affect: normal affect Objective Last Vital Signs Temp 36.3 C L 07/04/22 07:26 Pulse 73 07/04/22 07:26 Resp 17 07/04/22 07:26 BP 106/40 L 07/04/22 09:45 Pulse Ox 96 07/04/22 07:26 Time Spent with Patient Time Spent with Patient: 25-34 minutes Time was spent: preparing to see the patient(eg.review tests), ordering medications,tests, procedures, counseling the patient and care coordination
[2022-07-04] MEDS: traMADol 50 MG TAB 100 MG PO (17:55)
--- NOTE | 2022-07-04 19:07 | NUR.NOTE ---
Nursing Note: Talked with charge nurse about how pt's hemoglobin has dropped over 2 points in two days, she informed me that this was mentioned to MD.
[2022-07-04] MEDS: Mirtazapine 15 MG TAB 7.5 MG PO (20:44)
[2022-07-04] MEDS: Mylanta Suspension 30 ML CUP PO (20:44)
[2022-07-04] MEDS: Atorvastatin 40 MG TAB PO (20:44)
[2022-07-04 23:47] VITALS: BP 107/62; PULSE 78; RESP 16; TEMP 36.3; O2SAT 95
--- NOTE | 2022-07-05 | DI.MRI_ITS ---
Exam(s) MR PELVIS WO/W EXAM: MR PELVIS WO/W CLINICAL HISTORY: hx endometrial ca/carcinomatosis TECHNIQUE: Multiplanar multisequence MRI of the Abdomen was performed. CONTRAST MATERIAL: IV Contrast: 9 mL of Dotarem contrast administered. COMPARISON: CT CT ABDOMEN PELVIS WO from 05/27/2022 FINDINGS: Examination is significantly limited due to patient motion artifact. Urinary bladder: Unremarkable. Reproductive organs: Status post hysterectomy. Bowel: There is diverticulosis seen in the sigmoid colon, but no evidence of acute diverticulitis. Vasculature: Unremarkable. Bones: Age-appropriate degenerative changes are seen in the lower lumbar spine. There is a diffuse d isc bulge and degenerative changes of the facets at L4-L5 causing moderately severe central spinal ca nal stenosis. Peritoneal cavity: Ascites is present. Due to the motion artifact, the nodules identified on the CT scan from May 27 are not well visualized. Lymph nodes: No significant pelvic adenopathy. Soft Tissues: Unremarkable. Enhanced: No definite enhancing lesion is identified. Examination is significantly compromised due t o patient motion artifact. IMPRESSION: 1. Examination limited by significant patient motion artifact. 2. Abdominal ascites. Due to motion artifact, the nodules identified on the CT scan from 05/27/2022 ar e not well visualized. DATA REPOSITORY:
[2022-07-05] MEDS: Apixaban 5 MG TAB 10 MG PO ×2 (05:15→17:37)
[2022-07-05] MEDS: Levothyroxine 200 MCG TAB PO (05:15)
[2022-07-05 06:06] LABS: Abs Immature Grans 0.15 10^3/uL (0.0-0.06); Absolute Basophil Count 0.04 10^3/uL (0.0-0.2); Absolute Eosinophil Count 0.12 10^3/uL (0.0-0.7); Absolute Lymphocyte Count 1.11 10^3/uL (1.2-3.4); Absolute Neutrophil Count 6.77 10^3/uL (1.2-6.7); Basophils % 0.5; Eosinophils % 1.4; HCT 28.3 % (36.0-46.0); HGB 9.2 g/dL (11.2-15.7); Immature Grans % 1.7; Lymphocytes % 12.6; MCH 27.2 pg (27.0-33.0); MCHC 32.5 % (32.0-36.0); MCV 84 fL (80-95); MPV 10.1 fL (8.0-11.0); Monocytes % 6.8; Platelet Count 173 10^3/uL (130-400); RBC 3.38 10^6/uL (3.93-5.22); RDW 13.7 % (11.7-14.6); RDW-SD 41.6 fL; WBC 8.79 10^3/uL (4.4-10.8)
[2022-07-05 06:24] LABS: Anion Gap 8.7 mmol/L (3-11); BUN 30 mg/dL (7-18); CO2 23.3 mmol/L (21.0-32.0); CREATININE 1.6 mg/dL (0.55-1.02); Calcium 8.5 mg/dL (8.5-10.1); Chloride 106 mmol/L (98-107); Estimated GFR 33.63 (mL/min/1.73m2); Glucose 104 mg/dL (74-106); Potassium 3.3 mmol/L (3.5-5.1); Sodium 138 mmol/L (136-145)
[2022-07-05 07:15] VITALS: BP 105/56; PULSE 75; RESP 14; TEMP 36; O2SAT 96
[2022-07-05] MEDS: Senna TAB 1 TAB PO ×2 (08:04→20:11)
[2022-07-05] MEDS: LORazepam 0.5 MG TAB PO ×3 (08:04→20:11)
[2022-07-05] MEDS: Atenolol 25 MG TAB PO (08:04)
[2022-07-05] MEDS: Normal Saline Flush 10 ML SYR IVP ×3 (08:05→15:30)
[2022-07-05 08:46] LABS: Lab Add On Test DONE
[2022-07-05 09:01] LABS: Magnesium 2.2 mg/dL (1.8-2.4)
[2022-07-05] MEDS: Potassium Chloride 20 MEQ TABCR 40 MEQ PO (10:05)
[2022-07-05 10:59] LABS: CA 125 1979 U/mL (<30)
--- NOTE | 2022-07-05 11:42 | CMPROGNOTE_ITS ---
- If Service Date Differs Date of service: 07/05/22 Time of Service: 11:42 Care Management Progress Note S/O: Susanne was lying in bed fidgeting with her rosary beads when CM met with her. She was pleasant and easily engaged in conversation. CM reviewed bed offer from the [facility], which Susanne was pleased about-if she requires that level of care upon discharge. She did state that she was beginning to work with PT to begin strengthening. Susanne stated that she anticipated going to the [facility] with her Medicare and [employer] [employer] [place] benefits. 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 Susanne shared that she anticipates having a tele-visit with Dr. Vicente and her friend, Katia to review treatment recommendations. She is not sure if she will be able to continue treatments or not; and is deferring to her provider at this time. CM continues to follow. A: 72 year old female admitted to [facility] for UTI, Metastatic Endometrial cancer, FTT P: Anticipate Susanne will discharge to the [facility] when ready per MD, undetermined level of care at this time; this will be determined by conversation with Dr. Vicente, per Susanne's report.
[2022-07-05] MEDS: cefTRIAXone 1 GM/50 ML BAG IVPB (12:06)
[2022-07-05] MEDS: Normal Saline 500 ML 30 ML IV (12:06)
[2022-07-05] MEDS: Ondansetron 4 MG/2 ML VIAL IVP (12:06)
--- NOTE | 2022-07-05 12:16 | PT.INTREAT ---
Date of service: 07/05/22 Time of Service: 11:46 PT Notes Visit Reasons: UTI, Metastatic Endometrial Cancer,FTT Inpatient Physical Therapy Treatment Note See [facility] Date: 07/05/2022 PRECAUTIONS: Fall, Activity as tolerated SUBJECTIVE: Susanne is pleasant and agreeable to participating in PT. She reports that she will only be able to participate minimally because she is so weak and doesn't feel well. Upon returning to bed, patient reports that she is nauseous (nursing aware) and feels that she sat up in the chair for too long. OBJECTIVE: PAIN: No c/o pain BED MOBILITY/TRANSFERS Rolling L/R: I Sit-supine: I Sit-supine: I Sit-stand: SBA Stand-sit: SBA Chair-bed: CGA GAIT Assistive Device: FWW Weight bearing: Full Assist: CGA Distance: 5' in a.m.; 15' in p.m. Deviation: Slow pacing THEREX: Declined ASSESSMENT: Patient was limited due to nausea and increased fatigue with participation in PT. She demonstrates global weakness and deconditioning. PLAN: Continue with general conditioning and gait and transfer training for improved activity tolerance, as appropriate. TREATMENT CODE/TIME: Session 1: 15 minutes; 42265 (11:46) Session 2: 20 minutes; [id number] (14:10)
[2022-07-05] MEDS: Mylanta Suspension 30 ML CUP PO ×2 (13:52→20:15)
[2022-07-05] MEDS: Gadoterate meglumine 20 ML SYRINGE 9 ML IVP (15:30)
[2022-07-05 16:07] VITALS: BP 109/67; PULSE 80; RESP 16; TEMP 36.5; O2SAT 95
--- NOTE | 2022-07-05 16:09 | PHA.REVIEW2 ---
Pharmacy Admission Review - Admission Clinical Review (Last Reviewed 07/02/22 @ 06:54 by Keith Broderick MD) Acute DVT (deep venous thrombosis) (Acute) Discharge planning issues (Acute) Acute UTI (Acute) General weakness (Acute) AMS (altered mental status) (Acute) Omental metastasis (Acute) Endometrial ca (Acute) Ascites, malignant (Acute) Unexplained weight loss (Acute) N&V (nausea and vomiting) (Acute) Protein-calorie malnutrition, mild (Acute) Hypoalbuminemia due to protein-calorie malnutrition (Acute) Chronic kidney disease with symptom management only, stage 4 (severe) (Acute) Elevated creatine kinase (Acute) Peritoneal metastases (Acute) Abdominal pain (Acute) bupropion HCl [From Wellbutrin] Adverse Reaction (Intermediate, Verified 07/01/22 10:18) tremors Resuscitation Status DNR/DNI Height 5 ft Weight 90.446 kg - Renal Dosing Renal Dosing: BUN 30 mg/dL (7-18) H 07/05/22 05:50 Creatinine 1.6 mg/dL (0.55-1.02) H 07/05/22 05:50 Medications needing adjustments: Reviewed List of meds needing interventions: eCrCl 31 ml/min - Anticoagulation Anticoagulation: Hgb 9.2 g/dL (11.2-15.7) L 07/05/22 05:50 Hct 28.3 % (36.0-46.0) L 07/05/22 05:50 Plt Count 173 10^3/uL (130-400) 07/05/22 05:50 INR 1.2 (0.9-1.1) H 07/01/22 11:00 Creatinine 1.6 mg/dL (0.55-1.02) H 07/05/22 05:50 Therapeutic Anticoagulation: Reviewed Medications: Apixaban - Opiate Usage Evaluate Pain Scale/Pains Meds: N/A Scheduled Bowel Reg ordered if on Opiates?: Yes - Relevant Labs Sodium 138 mmol/L (136-145) 07/05/22 05:50 Potassium 3.3 mmol/L (3.5-5.1) L 07/05/22 05:50 Chloride 106 mmol/L (98-107) 07/05/22 05:50 Magnesium 2.2 mg/dL (1.8-2.4) 07/05/22 05:50 Electrolytes, C-Reactive P, ESR: Reviewed (PO potassium replacement given this AM) - DM Control DM Control: Glucose 104 mg/dL (74-106) 07/05/22 05:50 DM Control: N/A - Cardiac Review Cardiac Review: Troponin I < 50 ng/L (<or=60) 07/01/22 14:00 BP, HR, EF%: Reviewed - Qtc Review QTc: N/A - IV to PO Switch IV Medications: Reviewed - Home Meds Home Med List reviewed: Reviewed Relevent Home Meds Not ordered & why?: Not ordered: lisinopril/hctz - Current meds Current Medication Order Review: Reviewed (Ceftriaxone x 3 doses given for UTI, another urinalysis was ordered and is pending)
--- NOTE | 2022-07-05 17:43 | PGE_ITS ---
Date of Service Date of service: 07/05/22 Time of Service: 17:00 Assessment and Plan Assessment and plan (1) Acute UTI: Status: Acute Assessment and plan: Due to proteus mirabalis, present on admission. Continue ceftriaxone while awaiting a repeat UA. (2) Endometrial ca: Status: Suspected Assessment and plan: Evidence of omental and diaphragmatic metastases. Ascitic fluid poisitve for adenocarcioma; Cytology consistent with previous endometrial CA 11-12 years prior. [place] Vic[place] we are working on getting a telehealth appointment. The patient is interested in trying chemo if it is an option for her. (3) Acute DVT (deep venous thrombosis): Status: Acute Assessment and plan: LLE, present on admission. Continue apixaban (4) Omental metastasis: Status: Acute Assessment and plan: As above. (5) Ascites, malignant: Status: Acute Assessment and plan: As above. (6) Chronic kidney disease with symptom management only, stage 4 (severe): Status: Acute Assessment and plan: Cr continues to improve. It is 1.6 at this time. Continue to monitor. (7) Hypothyroidism: Assessment and plan: Continue levothyroxine. (8) Hypertension: Assessment and plan: Continue daily atenolol (with holding parameters) (9) Hyperlipidemia: Assessment and plan: Continue atorvastatin. (10) Discharge planning issues: Status: Acute Assessment and plan: DNR/DNI. Palliative care following. Anticipate discharge to the [facility] with outpatient oncology follow up Subjective Subjective Interval history since last seen: Ms Welch states that she has abdominal discomfort but not pain. She has been nauseated. Zofran helps. She does have constipation. States it is hard for her to drink the volume of liquid required for miralax. Denies dizziness, chest pain, endorses SOB on exertion but not at rest and not while laying flat in bed. Exam Narrative Exam Narrative: General: Pleasant female who appears to have an occasional dry heave, otherwise looks tired, weak, comfortable in bed, A&Ox3 HEENT: EOMI, MMM Heart: RRR, no m/r/g Lungs: CTAB Abdomen: soft, distended w/ ascites, generally tender on minimal palpation. Extremities: diameter of LLE>RLE Objective Last Vital Signs Temp 36.5 C 07/05/22 16:07 Pulse 80 07/05/22 16:07 Resp 16 07/05/22 16:07 BP 109/67 07/05/22 16:07 Pulse Ox 95 07/05/22 16:07 Laboratory Results - last 24 hr 07/02/22 07/05/22 07/05/22 06:15 05:50 05:50 WBC 8.79 RBC 3.38 L Hgb 9.2 L Hct 28.3 L MCV 84 MCH 27.2 MCHC 32.5 RDW 13.7 Plt Count 173 MPV 10.1 Immature Gran % 1.7 Neutrophils % 77.0 Lymphocytes % 12.6 Monocytes % 6.8 Eosinophils % 1.4 Basophils % 0.5 Nucleated RBC % 0.0 Absolute Neutrophils 6.77 H Absolute Lymphocytes 1.11 L Absolute Monocytes 0.60 Absolute Eosinophils 0.12 Absolute Basophils 0.04 Sodium 138 Potassium 3.3 L Chloride 106 Carbon Dioxide 23.3 Anion Gap 8.7 BUN 30 H Creatinine 1.6 H Est GFR (CKD-EPI 2020) 33.63 Glucose 104 Calcium 8.5 Magnesium CA 125 Antigen 1979 H Add-On Test Request 07/05/22 07/05/22 05:50 05:50 WBC RBC Hgb Hct MCV MCH MCHC RDW Plt Count MPV Immature Gran % Neutrophils % Lymphocytes % Monocytes % Eosinophils % Basophils % Nucleated RBC % Absolute Neutrophils Absolute Lymphocytes Absolute Monocytes Absolute Eosinophils Absolute Basophils Sodium Potassium Chloride Carbon Dioxide Anion Gap BUN Creatinine Est GFR (CKD-EPI 2020) Glucose Calcium Magnesium 2.2 CA 125 Antigen Add-On Test Request DONE Objective Narrative Objective Narrative: MRI abdomen; 1. Examination limited by significant patient motion artifact. 2. Abdominal ascites.? Due to motion artifact, the nodules identified on the CT scan from 05/27/2022 are not well visualized.? Time Spent with Patient Time Spent with Patient: 35-49 minutes Time was spent: preparing to see the patient(eg.review tests), obtaining and/or reviewing separately otained hiistory, ordering medications,tests, procedures, referring, communicating with other health caregiver services home, indepentently interpreting results, counseling the patient and care coordination
[2022-07-05] MEDS: Docusate Sodium 100 MG CAP PO (20:09)
[2022-07-05] MEDS: Atorvastatin 40 MG TAB PO (20:09)
[2022-07-05] MEDS: Polyethylene Glycol 3350 17 GM PACKET PO (20:10)
[2022-07-05] MEDS: Mirtazapine 15 MG TAB 7.5 MG PO (20:10)
[2022-07-05 23:05] VITALS: BP 100/65; PULSE 81; RESP 16; TEMP 36.9; O2SAT 97
[2022-07-06] MEDS: Apixaban 5 MG TAB 10 MG PO ×2 (05:12→17:22)
[2022-07-06] MEDS: Levothyroxine 200 MCG TAB PO (05:13)
[2022-07-06 06:09] LABS: Bilirubin Negative (Negative); Blood Negative (Negative); Clarity Sl Cloudy (Clear); Glucose Negative (Negative); Ketones Negative (Negative); Leukocyte Esterase Negative (Negative); Nitrite Negative (Negative); Specific Gravity 1.025 (1.005-1.025); Urobilinogen 0.2 mg/dL (Up to 0.2)
[2022-07-06 06:24] LABS: Epithelial Cells Moderate HPF (Negative); RBC 0-2 HPF (0-2); WBC 0-2 HPF (0-5)
[2022-07-06 06:25] LABS: Bacteria Few HPF (Negative); C & S Indicated? No; Casts 0-2 Hyaline LPF (Negative); Crystals Negative HPF (Negative); Mucus Negative (Negative)
[2022-07-06 06:50] LABS: Abs Immature Grans 0.17 10^3/uL (0.0-0.06); Absolute Basophil Count 0.06 10^3/uL (0.0-0.2); Absolute Eosinophil Count 0.14 10^3/uL (0.0-0.7); Absolute Lymphocyte Count 1.09 10^3/uL (1.2-3.4); Absolute Monocyte Count 0.62 10^3/uL (0.1-0.8); Absolute Neutrophil Count 6.51 10^3/uL (1.2-6.7); Basophils % 0.7; Eosinophils % 1.6; HCT 28.5 % (36.0-46.0); HGB 9.1 g/dL (11.2-15.7); Lymphocytes % 12.7; MCH 27.2 pg (27.0-33.0); MCHC 31.9 % (32.0-36.0); MCV 85 fL (80-95); MPV 9.8 fL (8.0-11.0); Monocytes % 7.2; Neutrophils % 75.8; Platelet Count 163 10^3/uL (130-400); RBC 3.34 10^6/uL (3.93-5.22); RDW 13.8 % (11.7-14.6); RDW-SD 42.8 fL; WBC 8.59 10^3/uL (4.4-10.8)
[2022-07-06 07:06] LABS: Anion Gap 9.6 mmol/L (3-11); BUN 26 mg/dL (7-18); CO2 24.4 mmol/L (21.0-32.0); CREATININE 1.6 mg/dL (0.55-1.02); Calcium 8.8 mg/dL (8.5-10.1); Chloride 106 mmol/L (98-107); Estimated GFR 33.63 (mL/min/1.73m2); Glucose 99 mg/dL (74-106); Magnesium 1.9 mg/dL (1.8-2.4); Sodium 140 mmol/L (136-145)
[2022-07-06 08:07] VITALS: BP 112/66; PULSE 78; RESP 14; TEMP 36.4; O2SAT 99
[2022-07-06] MEDS: Senna TAB 1 TAB PO (08:40)
[2022-07-06] MEDS: Polyethylene Glycol 3350 17 GM PACKET PO (08:40)
[2022-07-06] MEDS: LORazepam 0.5 MG TAB PO ×2 (08:42→20:02)
[2022-07-06] MEDS: Docusate Sodium 100 MG CAP PO (08:43)
[2022-07-06] MEDS: Atenolol 25 MG TAB PO (08:45)
--- NOTE | 2022-07-06 08:50 | PCPN_ITS ---
Date of service: 07/06/22 Time of Service: 13:00 Assessment and Plan Assessment and plan (1) Acute UTI: Status: Resolved (2) General weakness: Status: Acute (3) AMS (altered mental status): Status: Acute Assessment and plan: This appears to have resolved. Patient is alert and oriented today. (4) Ascites, malignant: Status: Acute (5) N&V (nausea and vomiting): Status: Acute (6) Unexplained weight loss: Status: Acute (7) Chronic kidney disease with symptom management only, stage 4 (severe): Status: Chronic (8) Peritoneal metastases: Status: Acute (9) Palliative care encounter: Status: Acute Assessment and plan: I met with Ms. Welch today for follow-up, supportive counseling and to answer questions. She has telehealth appointment later today with her gynecological oncology surgeon. She will find out whether there is an option for chemotherapy. If he offers chemotherapy, she will excepted. But he if he feels it is not going to be helpful, she feels ready to transition to hospice. She seems to have thought this through and is quite [id number], perhaps a bit sad about this. We explored feelings Goals: She would like to be comfortable, spend time with friends. Most important to her is getting her affairs in order. She wishes she had more time to do this. She thinks will need help doing this, given her debilitated state. As previously mentioned in other notes, hopes that she can be cared [facility] at [facility], as she does not have adequate community support to remain in her house with current caregiver needs. Advanced care planning: As previously mentioned, she has occults but does not know where it is. I found it sitting on the windowsill. Filled out in the fall.Filled out by a friend who is a medical provider. If you area has not filled out correctly. We decided to update the form. New COLST form was completed as DNR/DNI, transfer and treat. If she ends up transitioning to hospice, this will need to be revised again. Copy given to case management. 45-minute visit today including supportive care, COLST revision, goals of care discussion. (10) Cancer related pain: Status: Acute Assessment and plan: - Prior to admission was using tramadol for pain. No tramadol or acetaminophen or other pain medication in last 48 hours. Gabapentin being held. She is getting lorazepam 0.5 mg twice daily scheduled. She finds lorazepam quite helpful, but not sedating. Feels pain is adequately controlled at this time. Subjective Subjective Interval history since last seen: Ms. Chandra is a 72-year-old woman admitted to [facility] several days ago with progressive weakness and altered mental status thought to be secondary to UTI. Also diagnosed with acute extensive left leg DVT. In the last month she was diagnosed with peritoneal carcinomatosis with ascites (unclear if recurrence of 2012 endometrial CA or new ovarian CA with elevated CA 125). Palliative care has been following her during this hospital admission to help with supportive care, symptom management and goals of care. We are meeting with her today for follow-up. Care Team: Primary Care physician:Dr. Prince Lowe COMMERCIAL ASSISTANT oncologist:Dr. Vicente ([facility]) General surgeon: Hernán Gonzalez HX: Lives alone in her own home in [place]. Friend Katia lives in [place]. 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 Single, no children. Relatives in [place] Impression of currents health status: Not good What bothers you the most: Lack of control of situation, feeling weak What worries you the most: Dying, having to give up things she likes Current information preferences: Wants to hear everything. Function: Ambulation: Only able to walk a few feet in her room with assistance ADLs: Needing help with bathing, eating on own, toileting with transfer assistance iADLs: Had been independent until a few weeks prior to admission. Hearing: Does not use hearing aids Vision: No impairment Palliative Performance Scale % Ambulation Activity and Evidence of Disease Self Care Intake Level of Consciousness 100 Full Normal activity, no evidence of disease Full Normal Full 90 Full Normal activity, some evidence of disease Full Normal Full 80 Full Normal activity with effort, some evidence of disease Full Normal or reduced Full 70 Reduced Unable to do normal work, some evidence of disease Full Normal or reduced Full 60 Reduced Unable to do hobby or some housework, significant disease Occasional assist necessary Normal or reduced Full or confusion 50 Mainly sit/lie Unable to do any work, extensive disease Considerable assistance required Normal or reduced Full or confusion 40 Mainly in bed Unable to do any work, extensive disease Mainly assistance Normal or reduced Full, drowsy, or confusion 30 Totally bed bound Unable to do any work, extensive disease Total care Reduced Full, drowsy, or confusion 20 Totally bed bound Unable to do any work, extensive disease Total care Minimal sips Full, drowsy, or confusion 10 Totally bed bound Unable to do any work, extensive disease Total care Mouth care only Drowsy or coma 0 - - - - Patient Score: 40 Spiritual history: Not active in scientologist, prayer is important. Has talked with hospital commission agent livestock and found this useful. Palliative review of systems: Pain: Not having a lot of pain since hospital admission. Less pain when laying. Had been using tramadol at home. Has not needed since here. -Type of pain: Location -Discomfort from ascites (paracentesis 06/11) Dyspnea: Some shortness of breath with exertion, not severe GI symptoms: Nausea was major symptom upon admission. Still using occasional ondansetron, works well but causes constipation Appetite: Greatly diminished. Prepares herself and eats toast with peanut butter during my visit. Weight: Reporting 30 pound weight loss over the last 3 to 4 months. Depression: Of course, given the situation . Feels sad about situation Anxiety: Occasional Emotional Distress: See above Spiritual/Existential Distress: Labs: Cr:DOwn to 1.6 (overf hydrated?) previous 1.9-2.0, 2.5 on adm Liver panel:NL Albumin:2.4-3.1 CBC:hgb CA 125: 1979 Advanced Care Planning: Advanced Directive:Does not have one Health Care Agent: Katty Jones [place] (backup Lizy Leos in [place]), HCA on file. COLST:LIsted as DNR/DNI, previous palliative notes as there is a COLST at home which friend is going to bring in. See under A/P below Limitations: Exam Narrative Exam Narrative: Pleasant, reserved woman lying in bed. Moves easily. Prepares peanut butter toast for herself and eats it. Talks easily without dyspnea. Slightly pale. Objective Last Vital Signs Temp 36.4 C L 07/06/22 08:07 Pulse 78 07/06/22 08:07 Resp 14 07/06/22 08:07 BP 112/66 07/06/22 08:07 Pulse Ox 99 07/06/22 08:07 Laboratory Results - last 24 hr 07/02/22 07/05/22 07/06/22 06:15 05:50 05:07 WBC RBC Hgb Hct MCV MCH MCHC RDW Plt Count MPV Immature Gran % Neutrophils % Lymphocytes % Monocytes % Eosinophils % Basophils % Nucleated RBC % Absolute Neutrophils Absolute Lymphocytes Absolute Monocytes Absolute Eosinophils Absolute Basophils Sodium Potassium Chloride Carbon Dioxide Anion Gap BUN Creatinine Est GFR (CKD-EPI 2020) Glucose Calcium Magnesium 2.2 CA 125 Antigen 1979 H Urine Color Yellow Urine Clarity Sl Cloudy Urine pH 6.0 Ur Specific [place] 1.025 Urine Protein 30 H Urine Ketones Negative Urine Blood Negative Urine Nitrite Negative Urine Bilirubin Negative Urine Urobilinogen 0.2 Ur Leukocyte Esterase Negative Urine RBC 0-2 Urine WBC 0-2 Ur Epithelial Cells Moderate Urine Crystals Negative Urine Bacteria Few Urine Casts 0-2 Hyaline Urine Mucus Negative Ur Culture Indicated? No Urine Glucose Negative 07/06/22 07/06/22 06:30 06:30 WBC 8.59 RBC 3.34 L Hgb 9.1 L Hct 28.5 L MCV 85 MCH 27.2 MCHC 31.9 L RDW 13.8 Plt Count 163 MPV 9.8 Immature Gran % 2.0 Neutrophils % 75.8 Lymphocytes % 12.7 Monocytes % 7.2 Eosinophils % 1.6 Basophils % 0.7 Nucleated RBC % 0.0 Absolute Neutrophils 6.51 Absolute Lymphocytes 1.09 L Absolute Monocytes 0.62 Absolute Eosinophils 0.14 Absolute Basophils 0.06 Sodium 140 Potassium 4.0 Chloride 106 Carbon Dioxide 24.4 Anion Gap 9.6 BUN 26 H Creatinine 1.6 H Est GFR (CKD-EPI 2020) 33.63 Glucose 99 Calcium 8.8 Magnesium 1.9 CA 125 Antigen Urine Color Urine Clarity Urine pH Ur Specific [place] Urine Protein Urine Ketones Urine Blood Urine Nitrite Urine Bilirubin Urine Urobilinogen Ur Leukocyte Esterase Urine RBC Urine WBC Ur Epithelial Cells Urine Crystals Urine Bacteria Urine Casts Urine Mucus Ur Culture Indicated? Urine Glucose
--- NOTE | 2022-07-06 10:27 | CMPROGNOTE_ITS ---
- If Service Date Differs Date of service: 07/06/22 Time of Service: 10:27 Care Management Progress Note S/O: Susanne was lying in bed when MARIUSZ met with her. She has been accepted at the [facility] for short term rehab, and is nearing discharge readiness. asked MARIUSZ to set up a telehealth appointment with Dr. Vicente, [facility] Oncology, prior to her discharge. MARIUSZ contacted [facility] and secured a phone appointment for this afternoon at 3:40pm. MARIUSZ discussed this with Susanne, who stated that she would prefer to remain at [facility] for this appointment, and that she would like her friend, Katia, to be present for the appointment. MARIUSZ contacted Katia, who stated that she would be coming in to be present for the appointment. MARIUSZ also talked to Nubia, the [facility], who confirmed the bed offer. MARIUSZ set the expectation with Nubia that Susanne would likely be discharging tomorrow. MARIUSZ will continue to follow. A: 72 year old female admitted to [facility] for UTI, Metastatic Endometrial cancer, FTT P: Anticipate Susanne will discharge to the [facility] when ready per MD, undetermined level of care at this time; this will be determined by conversation with Dr. Vicente, per Susanne's report.
--- NOTE | 2022-07-06 11:55 | SUR.PHASEI ---
PT covid nasal swab done. Pt to be transfer to [facility] 07/07/2022
[2022-07-06 12:06] LABS: Source Nasal/Nares
[2022-07-06 12:50] LABS: COVID-19 PCR Negative (Negative)
[2022-07-06 15:34] VITALS: BP 100/57; PULSE 75; RESP 18; TEMP 36.4; O2SAT 99
--- NOTE | 2022-07-06 17:10 | CHAPLAIN ---
Susanne was making a phone call when I walked in. Her friend Katia Drummond was there and said Susanne had just received difficult news from Dr. Vicente, the [facility] oncologist, by a telemedicine appointment. Geography Faculty Member Shelby Grande told me later that Susanne is going to the [facility], on comfort measures. 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 Susanne doesn't have any children and relies on Katia for support. Palliative Care is following Susanne. She is a member of [facility] [employer] and last week agreed to a visit from Rev. Lizy Rowley, who visited. Susanne has attended lutheran in a while but asked for the visit. I told Susanne I will visit tomorrow morning before she is discharged to the [facility].
--- NOTE | 2022-07-06 18:23 | PGE_ITS ---
Date of Service Date of service: 07/06/22 Time of Service: 17:40 Assessment and Plan Assessment and plan (1) Endometrial ca: Status: Suspected Assessment and plan: Evidence of omental and diaphragmatic metastases. Ascitic fluid poisitve for adenocarcioma; Cytology consistent with previous endometrial CA 11-[address] Vicente ([facility]) had a telehealth appointment with the patient today, and the decision was made not to pursue any more chemotherapy. The patient will be going to the [facility] on end of life care tomorrow. (2) Acute UTI: Status: Resolved Assessment and plan: Due to proteus mirabalis, present on admission. Finished abx. UA test for cure - negative. (3) Acute DVT (deep venous thrombosis): Status: Acute Assessment and plan: LLE, present on admission. Continue apixaban (4) Omental metastasis: Status: Acute Assessment and plan: As above. (5) Ascites, malignant: Status: Acute Assessment and plan: As above. (6) Chronic kidney disease with symptom management only, stage 4 (severe): Status: Chronic Assessment and plan: Cr continues to improve. We are not planning on repeating labs prior to discharge. (7) Hypothyroidism: Assessment and plan: Continue levothyroxine. (8) Hypertension: Assessment and plan: Continue daily atenolol (with holding parameters) (9) Hyperlipidemia: Assessment and plan: Continue atorvastatin. (10) Discharge planning issues: Status: Acute Assessment and plan: DNR/DNI. Palliative care following. Anticipate discharge to the [facility] tomorrow on end of life measures. Subjective Subjective Interval history since last seen: Ms Welch had a conversation with her oncologist today (telehealth appointment), after which she elected to not pursue chemotherapy and to go on hospice. The plan is for her to go to the [facility] tomorrow with that goal. She is comfortable. She states she is bummed out, but is accepting of the news. Her friend has been really helpful. She gets occasional nausea, but was not nauseated at the time of our interview and was actually finishing dinner. She is not in pain. She states that ativan has helped her sleep in addition to mirtazapine. Exam Narrative Exam Narrative: General: Pleasant female, appears comfortable, A&Ox3 HEENT: EOMI, MMM Heart: not auscultated Lungs: nonlabored breathing Abdomen: covered with blankets. Extremities: covered with blankets. Objective Last Vital Signs Temp 36.4 C L 07/06/22 15:34 Pulse 75 07/06/22 15:34 Resp 18 07/06/22 15:34 BP 100/57 L 07/06/22 15:34 Pulse Ox 99 07/06/22 15:34 Laboratory Results - last 24 hr 07/06/22 07/06/22 07/06/22 05:07 06:30 06:30 WBC 8.59 RBC 3.34 L Hgb 9.1 L Hct 28.5 L MCV 85 MCH 27.2 MCHC 31.9 L RDW 13.8 Plt Count 163 MPV 9.8 Immature Gran % 2.0 Neutrophils % 75.8 Lymphocytes % 12.7 Monocytes % 7.2 Eosinophils % 1.6 Basophils % 0.7 Nucleated RBC % 0.0 Absolute Neutrophils 6.51 Absolute Lymphocytes 1.09 L Absolute Monocytes 0.62 Absolute Eosinophils 0.14 Absolute Basophils 0.06 Sodium 140 Potassium 4.0 Chloride 106 Carbon Dioxide 24.4 Anion Gap 9.6 BUN 26 H Creatinine 1.6 H Est GFR (CKD-EPI 2020) 33.63 Glucose 99 Calcium 8.8 Magnesium 1.9 Urine Color Yellow Urine Clarity Sl Cloudy Urine pH 6.0 Ur Specific [place] 1.025 Urine Protein 30 H Urine Ketones Negative Urine Blood Negative Urine Nitrite Negative Urine Bilirubin Negative Urine Urobilinogen 0.2 Ur Leukocyte Esterase Negative Urine RBC 0-2 Urine WBC 0-2 Ur Epithelial Cells Moderate Urine Crystals Negative Urine Bacteria Few Urine Casts 0-2 Hyaline Urine Mucus Negative Ur Culture Indicated? No Urine Glucose Negative COVID-19 Source SARS-CoV-2 (PCR) 07/06/22 11:10 WBC RBC Hgb Hct MCV MCH MCHC RDW Plt Count MPV Immature Gran % Neutrophils % Lymphocytes % Monocytes % Eosinophils % Basophils % Nucleated RBC % Absolute Neutrophils Absolute Lymphocytes Absolute Monocytes Absolute Eosinophils Absolute Basophils Sodium Potassium Chloride Carbon Dioxide Anion Gap BUN Creatinine Est GFR (CKD-EPI 2020) Glucose Calcium Magnesium Urine Color Urine Clarity Urine pH Ur Specific [place] Urine Protein Urine Ketones Urine Blood Urine Nitrite Urine Bilirubin Urine Urobilinogen Ur Leukocyte Esterase Urine RBC Urine WBC Ur Epithelial Cells Urine Crystals Urine Bacteria Urine Casts Urine Mucus Ur Culture Indicated? Urine Glucose COVID-19 Source Nasal/Nares SARS-CoV-2 (PCR) Negative Time Spent with Patient Time Spent with Patient: 25-34 minutes Time was spent: preparing to see the patient(eg.review tests), obtaining and/or reviewing separately otained hiistory, ordering medications,tests, procedures, referring, communicating with other health tree care foreman, indepentently interpreting results, counseling the patient and care coordination
[2022-07-06] MEDS: Ondansetron 4 MG/2 ML VIAL IVP (20:02)
[2022-07-06] MEDS: Normal Saline Flush 10 ML SYR IVP (20:02)
[2022-07-06] MEDS: Mirtazapine 15 MG TAB 7.5 MG PO (20:03)
[2022-07-06] MEDS: Atorvastatin 40 MG TAB PO (20:04)
[2022-07-06 22:13] VITALS: BP 112/68; PULSE 80; RESP 14; TEMP 36.7; O2SAT 98
[2022-07-07] MEDS: Apixaban 5 MG TAB 10 MG PO (05:49)
[2022-07-07] MEDS: Levothyroxine 200 MCG TAB PO (05:50)
[2022-07-07 07:28] VITALS: BP 99/62; PULSE 75; RESP 16; TEMP 36.8; O2SAT 97
[2022-07-07] MEDS: LORazepam 0.5 MG TAB PO (08:51)
[2022-07-07] MEDS: Atenolol 25 MG TAB PO (08:52)
--- NOTE | 2022-07-07 08:57 | DSE_ITS ---
Date of service: 07/07/22 Time of Service: 08:57 DS: Diagnosis Discharge Diagnosis (1) Endometrial ca: Status: Acute Asessment and Plan: metastatic (2) Acute UTI: Status: Resolved Asessment and Plan: Due to Proteus mirabilis, present on admission, completed antibiotics (3) Acute DVT (deep venous thrombosis): Status: Acute (4) Omental metastasis: Status: Acute (5) Ascites, malignant: Status: Acute (6) Chronic kidney disease with symptom management only, stage 4 (severe): Status: Chronic (7) Hypothyroidism: (8) Hypertension: (9) Hyperlipidemia: (10) Cancer related pain: Status: Acute (11) N&V (nausea and vomiting): Status: Acute (12) General weakness: Status: Acute Discharge Plan Disposition Patient Disposition: [facility] Facility(SNF) Condition: Fair Discharge Details Reason For Visit: UTI, Metastatic Endometrial Cancer,FTT Admit Date/Time: 07/01/22 16:17 Admit Provider: Keith Broderick Attending Provider: Keith Broderick Primary Care Provider: Prince Lowe Hospital Course Hospital Course: Ms Welch is a 72 year old female with PMHx of metastatic endometrial cancer (Stage IV) with peritonea/omental metastases and malignant ascites, as well as h/o NIDDM2, HTN, hypothyroidism, CKD, GHAZALA, who was a patient on [facility] hospitalist service from 07/01/22 until 07/07/22 for symtpoms associated with her metastatic endometrial cancer with worsening ascites as well as a proteus UTI. She was treated with three doses of ceftriaxone for the UTI with resolution of urinary symptoms, however, remained quite weak. The patient was found to have an extensive LLE DVT (from common femoral vein all the way to the popliteal and posterior tibial veins, including the greater saphenous vein). The patient was started on eliquis, bridged with heparin drip for anticipated paracenthesis on 07/03/[address] Archer. 1.5 L of fluid were removed, but did not provide much relief. THe patient's BP here would not tolerate addition of furosemide or aldactone. She was maintained on her atenolol. We held her HCTZ-lisinopril combination due to NELIDA on CKD which resolved by the end of her hospitalization. PT was consulted and recommended SNF level of care on discharge. Dr Vicente of oncology was updated via phone who was initially planning on offering the patient outpatient chemotherapy. Palliative care was also consulted and saw the patient on 07/02/22. At that time, the patient was still interested in seeing what options she had for treatment. We had made arrangements to have the patient have a telehealth appointment with her oncologist. Dr Jim of general surgery spoke with radiology at [facility] who had recommended obtaining an MRI of the pelvis to get a better look at the pelvic region. Unfortunately, there was a great deal of motion artifact on this imaging study. Dr Vicente of [facility] oncology met with the patient via telehealth on 07/06/22 and, given the patient's overall functional status, a decision was made not to pursue chemotherapy. The patient is being discharged to the [facility] today for half-way/PT with plans to eventually transition to end of life care. She is comfortable. She is DNR/DNI. She is in agreement with transfer at this time. Care for patient in addition to completion of her discharge paperwork on day of discharge took 45 minutes. Home Meds and New Rx's Prescriptions: New Eliquis 5 mg Tablet See Rx Instructions .ROUTE .COMPLEX Qty: 0 0RF Rx Instructions: 10 mg PO BID x 5 more doses, then 5 mg PO BID docusate sodium [Colace] 100 mg Capsule 100 mg PO BID Qty: 0 0RF sennosides [Senokot] 8.6 mg Tablet 1 tab PO BID Qty: 60 0RF mirtazapine 15 mg Tablet 7.5 mg PO HS Qty: 0 0RF ondansetron 4 mg tablet,disintegrating 4 mg PO Q6H PRNQty: 20 0RF Continued atenolol 25 mg tablet 25 mg PO DAILY Qty: 90 3RF levothyroxine 200 mcg tablet 200 mcg PO DAILY Qty: 90 3RF Rx Instructions: taking 5 days /week ondansetron HCl 4 mg tablet 4 mg PO Q6H PRN (Reason: nausea and vomiting) Qty: 20 0RF atorvastatin 40 mg tablet 40 mg PO HS Qty: 90 4RF Rx Instructions: 1 TAB HS loperamide 2 mg capsule 2 mg PO Q6H PRN (Reason: loose stool) Qty: 30 5RF tramadol 100 mg tablet 100 mg PO Q6H PRN (Reason: pain) Qty: 20 0RF Changed lorazepam [Ativan] 1 mg tablet 0.5 mg PO BID Qty: 10 0RF Discontinued gabapentin 300 mg capsule 600 mg PO BID PRN lisinopril-hydrochlorothiazide 10-12.5 mg tablet 1 tab PO DAILY Qty: 90 3RF Myrbetriq 25 mg tablet extended release 24 hr 25 mg PO DAILY Qty: 90 3RF tramadol 50 mg tablet 25 - 50 mg PO Q8H PRN (Reason: pain) Qty: 30 0RF tramadol 50 mg tablet 50 mg PO Q6H PRNQty: 10 0RF megestrol 400 mg/10 mL (40 mg/mL) Suspension 400 mg PO DAILY 30 Days Qty: 480 6RF Discharge Instructions Instructions: Apixaban (By mouth), Deep Vein Thrombosis (DC), Endometrial Cancer (DC), Ascites (DC) Stand Alone Forms: Nursing Discharge Form Referrals: [facility] [Provider Group] [facility] [Outside] (Please Follow up per the [facility]) Stephen Vicente [ NON-[facility] STAFF PHYSICIAN] - 07/06/22 3:40 pm (Telehealth- Dr Vicente will be calling your cell phone) Activity:: Activity as Tolerated Equipment/Supplies:: No Equipment Needed Diet:: Low Sodium Discharge Orders Discharge Orders: Discharge Order (Routine); Ordered 07/07/22 Ordered By: Nara Ruiz DS: Summary Time Spent with Patient providing and/or coordinating discharge services: Greater than 30 minutes Status at Discharge Functional status at discharge: bed bound Overall status at discharge: patient is not back to baseline Mental Status: mental status grossly normal Speech and Movement: slowed movement Mood: congruent mood Affect: sad (but appropriate) Exam Narrative Exam Narrative: General: Pleasant female, appears comfortable, A&Ox3 HEENT: EOMI, MMM Heart: not auscultated Lungs: nonlabored breathing Abdomen: mildly distended Extremities: edema LLE Psych Mental Status: mental status grossly normal Speech and Movement: slowed movement Mood: congruent mood Affect: sad (but appropriate) DS: Data Vitals/I&O Vitals and I&O: Vital Signs Temperature 36.8 C 07/07/22 07:28 Temperature Source Tympanic 07/07/22 07:28 Pulse 75 07/07/22 07:28 Pulse Rhythm Regular 07/07/22 07:26 Pulse 76 07/01/22 12:30 Respiratory Rate 16 07/07/22 07:28 Respiratory Effort Normal 07/07/22 07:26 Respiratory Depth Normal 07/07/22 07:26 Respiratory Pattern Normal 07/07/22 02:17 Blood Pressure 99/62 L 07/07/22 07:28 Blood Pressure Mean 45 07/01/22 11:46 Pulse Oximetry 97 07/07/22 07:28 Oxygen Delivery Method Room Air 07/07/22 07:28 Oxygen Flow Rate 0 07/07/22 07:28 Pain Level 0 07/07/22 07:28 Intake & Output 07/06/22 07/06/22 07/07/22 11:59 23:59 11:59 Intake Total 180 / 600 420 / 600 Output Total 500 / 500 Balance -320 / 100 420 / 100 Intake: Oral 180 / 600 420 / 600 Output: Urine 500 / 500 Other: Urine Color Yellow Pale Yellow Urine Appearance Clear Clear Clear Urine Odor Normal None Comment has not void yet. hx incontinence. per shift supervisor film processing urine sample collected voided in commode dry at this time, refused urge to void at this time. Stool Size Moderate Small Stool Characteristics Soft Liquid Liquid Brown Voiding Methods Bedside Commode Diaper Incontinent Data Completed and Pending Completed studies during hospitalization [Text1]: CXR: No acute abnormality.? CT head: No acute intracranial process. Venous doppler 07/02/22: 1. Extensive left lower extremity thrombus extending from the common femoral vein all the way to the popliteal vein and posterior tibialis veins, including the greater saphenous vein.? MRI pelvis w/ contrast 07/05/22: 1. Examination limited by significant patient motion artifact. 2. Abdominal ascites.? Due to motion artifact, the nodules identified on the CT scan from 05/27/2022 are not well visualized.? Labs on day of discharge: Labs from last 24 hours 07/06/22 11:10 COVID-19 Source Nasal/Nares SARS-CoV-2 (PCR) Negative PFSH All Active Problems (Updated 07/07/22 @ 10:04 by Nara Ruiz MD) Cancer related pain (Acute) Palliative care encounter (Acute) Acute DVT (deep venous thrombosis) (Acute) Discharge planning issues (Acute) General weakness (Acute) AMS (altered mental status) (Acute) Omental metastasis (Acute) Endometrial ca (Acute) Ascites, malignant (Acute) Unexplained weight loss (Acute) N&V (nausea and vomiting) (Acute) Protein-calorie malnutrition, mild (Acute) Hypoalbuminemia due to protein-calorie malnutrition (Acute) Chronic kidney disease with symptom management only, stage 4 (severe) (Chronic) Elevated creatine kinase (Acute) Peritoneal metastases (Acute) Abdominal pain (Acute) Medical History Acne Carpal tunnel syndrome Chronic diarrhea Depressive disorder Diabetes mellitus (05/31/14) Edema Gastroesophageal reflux disease with esophagitis Herpes zoster (02/29/08) Hyperlipidemia (10/19/12) Hypertension better w/ current meds Hypothyroidism (10/19/12) Impaired fasting glucose (07/14/15) Malignant neoplasm of uterus (07/02/11) endometrial cancer (focal grade 3) noninvasive TLH/BSO [place] [facility] [place]/24/11 Morbid obesity Obstructive sleep apnea syndrome [facility] sleep lab 2003 (pt stopped CPAP in 2010, re-start 2014 No Co Hosp sleep lab) Peripheral neuropathy leg numbness and unstable gait due th chemo Renal insufficiency [facility] Nephrology eval 2006 Renal insufficiency Sensorineural hearing loss of both ears Vertigo (02/29/08) Vitamin B 12 deficiency (05/31/14) Vitamin D deficiency (07/14/15) Surgical History Colonoscopy - MAC (05/03/12) [facility] Extraction of cataract 10/10/17 (R) eye; DR. ECKERT 10/31/17 (L) eye; Dr. Eckert GASTRIC STAPLING w/ esoph rupture and abcess History of gastric stapling History of hysterectomy for malignancy [address] [facility] History of tonsillectomy and adenoidectomy Open Carpal Tunnel release B/L Status post carpal tunnel release Family History Mother , RENAL FAILURE at age 70. Essential hypertension Diabetes Heart disease Hyperlipidemia Father , KIDNEY FAILURE at age 60. Essential hypertension Heart disease Hyperlipidemia Maternal Grandfather No problems noted. Paternal Grandfather No problems noted. Maternal Grandmother Diabetes Paternal Grandmother No problems noted. Social History Smoking/Tobacco Use Status: Former Tobacco Use Quit Date: 04/25/84 Smoking risk assessment performed?: Yes Drug use: Never Substance use type: does not use Caregiver/Support person: No Household members: none Housing: house Communication Needs: Hard of Hearing and Corrective Lenses Do you need help understanding health information?: Never Pets and animals: Yes Pets and animals: dog(s) Sexually active: No Do you think of yourself as: straight/heterosexual Current gender identity: female What is your relationship status?: never How often do you talk on the phone with friends or family?: once per week How often do you get together with friends or relatives?: decline to answer Do you belong to any clubs or organized social groups?: no Panel score (0-1 are the most socially isolated patients): 0 What type of physical activity do you participate in: none Kia/Yarsani: Anabaptist Seatbelt use: always Helmet use: No Drive intox or ride w/intox new car driver: No Do you feel safe at home: Yes Victim of physical abuse: No Victim of emotional abuse: No Victim of sexual abuse: No Would you like helpful sources: No Female Reproductive History Menstrual Age of Menarche: 10 control method: none Menopause type: natural History History 0 Para Hx # Term Pregnancies Multiple births Hx # Pregnancies Ectopic pregnancies AB induced Hx Number of Living Children AB spontaneous Time Spent with Patient Time Spent with Patient: 45-69 minutes Time was spent: preparing to see the patient(eg.review tests), obtaining and/or reviewing separately otained hiistory, ordering medications,tests, procedures, referring, communicating with other health daytime caregiver, indepentently interpreting results, counseling the patient and care coordination
--- NOTE | 2022-07-07 11:19 | NUR.NOTE ---
Nursing Note: Received patient in bed A&Ox3, denies any pain. Pt aware being transfer to [facility] today. Shower given, IV removed, belongings packed and returned to patient Offered patient assistance up to chair at bedside for lunch, patient refused; pt's affect somewhat depressed. Will continue to assist and engaged patient.
--- NOTE | 2022-07-07 12:12 | NUR.NOTE ---
Nursing Note: Report given to Stevo DONOHUE at [facility]; [phone].
--- NOTE | 2022-07-07 17:50 | PDOC.CMDIS ---
- If Service Date Differs Date of service: 07/07/22 Time of Service: 17:50 LACE Index Scoring Tool - Questions: Length of Stay (in days): 4 - 6 Acuity (Admit via E.D.?): Yes Comorbidities: Diabetes w/o Complication, Metastatic Solid Tumor E.D. Visits: 2 - Answers: Total Score: 14 Risk of Readmission: High Risk Care Management Discharge Reason for Hospitalization: UTI, Metastatic endometrial cancer, FTT Discharge Plan: Susanne transferred to the [facility] today for short term rehab, although she will likely transition to comfort measures/hospice while there. CM coordinated w/c van transport. She will follow up with palliative care/hospice, and her discharge plan of care. Patient/Family Education Needs: Review discharge instructions and limitations, discussion of self care needs including ask me three. Services Needed at Discharge: Residential Facility ([facility]), Transportation ([facility] w/c van)
--- NOTE | 2022-07-09 08:33 | PT.INDS ---
Date of service: 07/08/22 PT Notes Visit Reasons: UTI, Metastatic Endometrial Cancer,FTT Inpatient Physical Therapy Evaluation Date:?07/05/2022 Dates of Service: 07/03/2022 through 07/05/2022 This is a clinical summary of care provided for the duration of dates listed above. No charge was made in the completion of this documentation. Referring Doctor:Scott Broderick PT Orders: PT CONSULT Precautions: Standard, Fall Patient Profile/Admitting Diagnosis:?? Erica is a 72 year old female admitted via the ED secondary to acute UTI, Metastatic endometrial cancer, FTT. PMHX: All Active problems(Updated 07/02/22 @ 07:04 by Keith Broderick MD) Discharge planning issues (Acute) Acute UTI (Acute) General weakness (Acute) AMS (altered mental status) (Acute) Omental metastasis (Acute) Endometrial ca (Acute) Ascites, malignant (Acute) Unexplained weight loss (Acute) N&V (nausea and vomiting) (Acute) Protein-calorie malnutrition, mild (Acute) Hypoalbuminemia due to protein-calorie malnutrition (Acute) Chronic kidney disease with symptom management only, stage 4 (severe) (Acute) Elevated creatine kinase (Acute) Peritoneal metastases (Acute) Abdominal pain (Acute) Medical History? Acne Carpal tunnel syndrome Chronic diarrhea Depressive disorder Diabetes mellitus (05/31/14) Edema Gastroesophageal reflux disease with esophagitis Herpes zoster (02/29/08) Hyperlipidemia (10/19/12) Hypertension better w/ current medsHypothyroidism (10/19/12) Impaired fasting glucose (07/14/15) Malignant neoplasm of uterus (07/02/11) endometrial cancer (focal grade 3) noninvasive TLH/BSO at [facility] 06/24/11 Morbid obesity Obstructive sleep apnea syndrome [facility] sleep lab 2003 (pt stopped CPAP in 2010, re-start 2014 No Co Hosp sleep lab) Peripheral neuropathy leg numbness and unstable gait due th chemo Renal insufficiency [facility] Nephrology eval 2006 Renal insufficiency Sensorineural hearing loss of both ears Vertigo (02/29/08) Vitamin B 12 deficiency (05/31/14) Vitamin D deficiency (07/14/15) Surgical History? [facility] of [facility] (R) eye; DR. ECKERT 10/31/17 (L) eye; Dr. LopezsGASTRIC STAPLING w/ esoph rupture and abcess History of gastric stapling [facility] and adenoidectomy Open Carpal Tunnel release B/LStatus post carpal tunnel release Social History/Home Situation: Lives alone in a private home 1 level living. Has not had running water in quite some time. Utilizes a walker for all ambulation due to generalized weakness and balance. Current Functional Limitations: Decreased activity tolerance, limited walking tolerance, limited transfers, sponge bathing at home only for has not had running water in a few months. Limited meals for has no appetite- meals consist of crackers and ayana aileen. Is independent in driving prior to hospital admission. 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 She is unsure when she stopped working however believes it was the end of Mar. Equipment Owned/DME: walker Subjective:? NT. See most recent WRECKING [employer] notes. Objective:? General Observation: NT. See most recent [employer] notes. Mental Status: NT. See most recent [employer] notes. Pain: NT. See most recent [employer] notes. ROM: Right Upper Extremity: Demonstrates WFL AA R UE ROM Left Upper Extremity: Demonstrates WFL AA L UE ROM Right Lower Extremity: Hip flexion 100 degrees, knee flexion 105 degrees, knee extension 5, DF neutral Left Lower Extremity: Hip flexion 100 degrees, knee flexion 110 degrees, knee extension 0, DF neutral Strength: Right Upper Extremity: Demonstrates grossly 4/5 R UE strength with exception of ER 3+/5 Left Upper Extremity: Demonstrates grossly 4/5 L UE strength with exception of ER 4-/5 Right Lower Extremity: Hip flexion 4-/5, knee extension 4/5, knee flexion 4-/5, DF 4-/5 Left Lower Extremity: Independent SLR. BED MOBILITY/TRANSFERS? Rolling L/R: I Sit-supine: I Sit-supine: I ? Sit-stand: SBA? Stand-sit: SBA ? Chair-bed: CGA ? GAIT? Assistive Device: FWW? Weight bearing: Full Assist: CGA ? Distance:? 5' in a.m.; 15' in p.m. ? Deviation: Slow pacing Balance:? Static Sitting: Normal Dynamic Sitting: Good Static Standing: Fair Dynamic Standing: Poor Assessment:??Patient is a 72 year old female referred to physical therapy services with the diagnosis of acute UTI, endometrial cancer and L LE DVT.? Patient presents with clinical signs and symptoms consistent with diagnosis, as demonstrated by the following impairment level findings: impaired motor function, muscle performance with limited ability to transfer, increased SOB with activities, and altered gait and balance requiring assistance for all functional transfers.? Impairments are contributing to the following functional limitations:decreased activity tolerance, global weakness, unsteady gait/balance, SOB with exertion Goals: Goals X1 week 1. Supine-Sit Independent MET 2. Sit-Supine Independent MET 3. Sit-Stand Supervision with FWW NOT MET 4. Stand-Sit Supervision NOT MET 5. Bed-Chair Supervision with FWW NOT MET 6. Chair-Bed Supervision with FWW NOT MET NOT MET 7. Gait Supervision with FWW 100 ft or greater DISCHARGE RECOMMENDATIONS:? SNF for continued rehabilitation due to general weakness and deconditioning TREATMENT CODE/TIME:? NC Thank you for the opportunity to participate in the care of this patient. Renee Fong PT, DPT, CLT [facility] [place], [place]
[2022-07-14 12:03] LABS: APTT (LRH) > 176.1 secs (21.3-28.4)
== END 2022-07-07 12:00 | disposition skilled nursing facility (03) | DRG 375 ==
LOC: ER 17:09 → MS 17:45
PROVIDERS: Family Medicine; Internal Medicine; Admitting Provider Family Medicine; Emergency Provider Emergency Medicine; PCP Family Medicine; Visit Provider Family Medicine
DX: C78.6 Secondary malignant neoplasm of retroperitoneum and peritoneum (principal); E44.1 Mild protein-calorie malnutrition; N39.0 Urinary tract infection, site not specified; R18.0 Malignant ascites; N18.4 Chronic kidney disease, stage 4 (severe); I82.412 Acute embolism and thrombosis of left femoral vein; I82.432 Acute embolism and thrombosis of left popliteal vein; I82.442 Acute embolism and thrombosis of left tibial vein; E03.9 Hypothyroidism, unspecified; I12.9 Hypertensive chronic kidney disease with stage 1 through stage 4 chronic kidney disease, or unspecified chronic kidney disease; E78.5 Hyperlipidemia, unspecified; Z66 Do not resuscitate; E11.22 Type 2 diabetes mellitus with diabetic chronic kidney disease; G47.33 Obstructive sleep apnea (adult) (pediatric); E11.42 Type 2 diabetes mellitus with diabetic polyneuropathy; R41.82 Altered mental status, unspecified; Z68.38 Body mass index [BMI] 38.0-38.9, adult; K21.00 Gastro-esophageal reflux disease with esophagitis, without bleeding; E53.8 Deficiency of other specified B group vitamins; E55.9 Vitamin D deficiency, unspecified; Z87.891 Personal history of nicotine dependence; E66.01 Morbid (severe) obesity due to excess calories; G89.3 Neoplasm related pain (acute) (chronic); B96.4 Proteus (mirabilis) (morganii) as the cause of diseases classified elsewhere; Z85.42 Personal history of malignant neoplasm of other parts of uterus
CPT/HCPCS: 36415; 72197; 80048; 80053; 85027; 86304; 87077; 87635; 87637; 93005; 96365; 97162; 97530; 99222; 99231; 99285; 70450; 71046; 81003; 81015; 83735; 84484; 85025; 85610; 85730; 87086; 87186; 93010; 93971; 99232; 99239; J0696; J1644; J2405; J3475; J9999